=== PATIENT | male | born 1940 | race Caucasian/White ===

== ENCOUNTER 2021-01-06 14:41 | Outpatient (CLI) | payer MEDICARE, SELFPAY ==
--- NOTE | ~2021-01-06 | XR_ITS ---
EXAMINATION: XR shoulder RT min 2V, XR humerus RT DATE: 01/06/2021 15:07 INDICATION: Right shoulder/arm pain. TECHNIQUE: 1. AP internally and externally rotated, AP oblique externally rotated and transscapular Y views of t he right shoulder were obtained. 2. Internal and external rotated views of the right humerus were obtained. COMPARISON: None FINDINGS: Normal alignment. Old healed posterolateral right seventh rib fracture. No acute fracture.Mild glenoh umeral and acromioclavicular osteoarthritis. Right elbow joint space is normal. Indeterminate 3-3.5 c m mixed lytic and sclerotic lesion at the proximal metaphyseal region of the right humerus. No eviden t endosteal scalloping. Soft tissues are unremarkable. Visualized portion of the right lung is clear. IMPRESSION: Indeterminate 3-3.5 cm mixed lytic and sclerotic lesion at the proximal diaphyseal region of the righ t humerus which raises some concern for malignancy. Correlate with any prior outside imaging and woul d consider bone scan for further evaluation. Reviewed, dictated and finalized at location B. LITHOGRAPHER IMPRESSION: Indeterminate 3-3.5 cm mixed lytic and sclerotic lesion at the proximal diaphys eal region of the right humerus which raises some concern for malignancy. Corre late with any prior outside imaging and would consider bone scan for further ev aluation.
== END 2021-01-06 14:42 | disposition home or self-care (01) ==
PROVIDERS: PCP Family Medicine; Visit Provider Physician Assistant
DX: M79.601 Pain in right arm (principal); R93.6 Abnormal findings on diagnostic imaging of limbs
CPT/HCPCS: 73030; 73060

== ENCOUNTER 2021-01-12 10:26 | Outpatient (CLI) | payer MEDICARE, SELFPAY ==
--- NOTE | ~2021-01-12 | NM_ITS ---
EXAMINATION: NM bone scan whole body DATE: 01/12/2021 14:34 INDICATION: Disorder of bone, unspecified. TECHNIQUE: 23.6 mCi Tc-99m HDP was administered intravenously. Delayed whole-body scintigrams were o btained. COMPARISON: Right shoulder radiographs 01/06/21 FINDINGS: The bladder is markedly distended. There is bilateral hydronephrosis and hydroureter. There is joint-centered increased activity at the acromioclavicular joints, sternoclavicular joints, knees , and posterior spine, likely osteoarthritis. There is increased activity in proximal right humerus c orrelating with a sclerotic lesion on radiographs. IMPRESSION: 1. Increased activity in proximal right humerus correlating with a sclerotic lesion on radiographs. T he differential diagnosis includes metastatic disease and benign bone island. Noncontrast right shoul marge CT is recommended. 2. Markedly distended bladder with bilateral hydronephrosis and hydroureter. Reviewed, dictated and finalized at location A. ER PLATE LITHOGRAPHER IMPRESSION: 1. Increased activity in proximal right humerus correlating with a sclerotic le bridgette on radiographs. The differential diagnosis includes metastatic disease and benign bone island. Noncontrast right shoulder CT is recommended. 2. Markedly distended bladder with bilateral hydronephrosis and hydroureter.
== END 2021-01-12 10:27 | disposition home or self-care (01) ==
PROVIDERS: PCP Family Medicine; Visit Provider Physician Assistant
DX: M89.9 Disorder of bone, unspecified (principal)
CPT/HCPCS: 78306; A9561

== ENCOUNTER 2021-01-14 10:22 | Outpatient (CLI) | payer MEDICARE, SELFPAY ==
--- NOTE | ~2021-01-14 | CT_ITS ---
EXAMINATION: CT shoulder RT wo con DATE: 01/14/2021 10:47 INDICATION: Sclerotic lesion in proximal right humerus. TECHNIQUE: Computed tomography (CT) of the right shoulder was performed without intravenous contrast. Automated exposure control and iterative reconstruction technique were employed. The dose-length pro duct was 604.25 mGy-cm. COMPARISON: Right shoulder radiographs 01/06/2021, bone scan 01/12/2021 FINDINGS: Bone alignment is normal. No acute fracture. In proximal right humerus, there is a spiculat ed sclerotic lesion measuring 3.1 cm. No lytic component. No endosteal scalloping. There is mild oste oarthritis of glenohumeral joint and acromioclavicular joint. There is an old healed fracture of righ t seventh rib. IMPRESSION: 1. 3.1 cm sclerotic lesion in proximal right humerus, likely a benign bone island. 2. Mild polyarticular osteoarthritis. Reviewed, dictated and finalized at location A. UCER IMPRESSION: 1. 3.1 cm sclerotic lesion in proximal right humerus, likely a benign bone richi nd. 2. Mild polyarticular osteoarthritis.
== END 2021-01-14 10:23 | disposition home or self-care (01) ==
LOC: ANHIMG 10:24
PROVIDERS: PCP Family Medicine; Visit Provider Physician Assistant
DX: M19.011 Primary osteoarthritis, right shoulder (principal)
CPT/HCPCS: 73200

== ENCOUNTER 2021-04-05 09:00 | Outpatient (RCR) | payer MEDICARE, SELFPAY ==
[2021-03-03 09:00] VITALS: BP_SYST 80
--- NOTE | 2021-03-03 09:58 | PTOPEVAL ---
PHYSICAL THERAPY EVALUATION AND PLAN OF CARE 03-03-21 Thank you for referring Bird Staton to [facility] for the diagnosis of R shoulder impingement. He is scheduled to be seen for therapy? 1-2 x/week for 5 weeks. Please review, sign, date and return this plan of care MAXIMILIANO. I agree with and certify that the following plan of care is medically necessary. Referring Physician Date Attending Provider: Fantasma Briscoe MD PT Outpatient Evaluation Document 03/03/21 09:00 NOREEN (Rec: 03/03/21 09:58 NOREEN [id number]) Past Medical History Source of Past Medical History Patient Neurological History Hx Neurological Disorders No Significant History Cardiovascular History Hx Hypertension Yes: meds Respiratory History Hx Respiratory Disorders No Significant History Gastrointestinal History Hx Gastrointestinal Disorders No Significant History Genitourinary History Hx Genitourinary Disorders No Significant History Musculoskeletal History Hx Musculoskeletal Disorders No Significant History Endocrine History Hx Endocrine Disorders No Significant History Other History Hx Other Medical Conditions Yes: have had COVID vaccine Evaluation Information Problem Diagnosis R shoulder impingement Onset Dec 10, 2020 Subjective Information fell onto R shoulder in Dec; Query Text:As Reported By Patient/ injection to shoulder- not Family made much difference with pain , but able to move little better; reports shoulder is gradually improving, and using it more, but still limited with some motions; Diagnostic Tests X-Rays For This Problem Yes: decreased acromial- humeral space; Other Tests For This Problem Yes: CT-healed R 7th rib fracture;closed scapula fx Previous Treatments Previous Treatments For This Problem no PT treatment Prior Level of Function Activity Level (Last 3 Months) 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
[2021-04-05 09:04] VITALS: BP_SYST 80
--- NOTE | 2021-04-05 09:33 | PTOPEVAL ---
PHYSICAL THERAPY DISCHARGE 04-05-21 Refer to the clinical summary below, for his status with today's reeval, compared to the initial eval. The goals were partially achieved; he is independent with his home program and is to continue with increasing his activity level and using R UE. Thank you for referring Bird Staton to [facility] Please review, sign, date and return this Discharge MAXIMILIANO. I agree with and certify that the following plan of care is medically necessary. Referring Physician Date Attending Provider: Fantasma Briscoe MD Document 04/05/21 09:04 NOREEN (Rec: 04/05/21 09:33 NOREEN [id number]) Assessment Status Discharge Subjective Information Bird reports: shoulder is Query Text:As Reported By Patient/ better, can use it down low, Family but reaching up hurts; able to start truck without hurting and using R arm to eat; am now able to use R arm on the vertical ladder in the barn to go to top of hayloft; doing exercises at home; to see dr tomorrow; Pain Assessment Timing of Pain Assessment Timing of Pain Assessment Assessment Pain Scale Pain Scale Used Numeric (1 - 10) Self Report Pain Assessment Right Shoulder(s) Reported Pain Level 0 Pain Frequency Chronic,Intermittent Other Pain Description anterior shoulder joint; feels weak, aches and hurts when lift up Lowest Pain Intensity 0 Greatest Pain Intensity 8 Pain Aggravating Factors Exercise/Activity Other Pain Aggravating Factors reaching arm up Pain Behaviors Grimacing,Guarding Pain Score Pain Score 0: Self Report Interventions Used Interventions Used By Clinicians Education,Exercise Pain Relief Interventions Used By Ice,Inactivity/Rest Patient Other Alleviating Interventions sleeping OK; Upper Extremity Range of Motion Scapular/ Shoulder Range of Motion Right Shoulder Flexion - Active 80 Shoulder Flexion - Passive 115 Shoulder Abduction - Active 60 Shoulder Abduction - Passive 80 Shoulder Medial Rotation - Active palm to waist Query Text:Reach Behind the Back Shoulder Lateral Rotation - Passive 65 Shoulder Lateral Rotation - Active palm to behind ear Query Text:Reach Behind the Head Scapular/Shoulder Range of Motion active ROM in standing/ Comments passive in supine with stretching; ER with elbow at side; -------- HEP: reviewed kelly MIJARES
== END 2021-04-05 11:45 | disposition home or self-care (01) ==
LOC: ANHPT 09:00
PROVIDERS: PCP Family Medicine; Visit Provider Orthopaedic Surgery
DX: M75.41 Impingement syndrome of right shoulder (principal)
CPT/HCPCS: 97110; 97140; 97161

== ENCOUNTER 2023-03-18 14:05 | Emergency (ER) | payer MEDICARE, SELFPAY ==
--- NOTE | ~2023-03-18 | XR_ITS ---
EXAM: XR thoracic spine 3V DATE: 03/18/2023 14:27 HISTORY: pain to right of thoracic, UPPER after fall 3 days ago . COMPARISON: None available. FINDINGS: Streaky bibasilar opacities likely represent atelectasis/scar. Basilar calcifications. Oste openia. Vertebral body alignment intact. Exaggerated thoracic kyphosis. Mild multilevel anterior wedg e deformity of mid and lower thoracic vertebral bodies. Moderate disc space narrowing and marginal os teophytosis. No traumatic malalignment. Visualized lung parenchyma is clear. IMPRESSION: Multilevel mild anterior wedge deformity of multiple vertebral bodies in the thoracic spi ne, of uncertain age. Reviewed, dictated and finalized at location K. IMPRESSION: Multilevel mild anterior wedge deformity of multiple vertebral bodi es in the thoracic spine, of uncertain age.
--- NOTE | 2023-03-18 14:06 | ED.FALL ---
HPI - Fall General Chief Complaint: Extremity Injury, Upper Stated Complaint: fell and inj rt shoulder Time Seen by Provider: 03/18/23 14:06 Source: patient Mode of arrival: ambulatory Limitations: no limitations History of Present Illness HPI Narrative: Mr. Staton is an 82-year-old male patient presenting to the clinic today with complaints of a right-sided midback pain and scapular pain after a fall on Sunday. 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 Has a large old bruise to the left elbow but denies any elbow pain, denies any pain in the shoulder or over the right humerus. Denies hitting his head or any loss of consciousness. He denies any neck pain. Related Data Home Medications Medication Instructions Recorded Confirmed finasteride 5 mg tablet 5 mg PO DAILY 09/27/21 03/18/23 Allergies Allergy/AdvReac Type Severity Reaction Status Date / Time No Known Allergies Allergy Mild Verified 03/18/23 14:08 Review of Systems Review of Systems: Pertinent positives per HPI. Patient denies any fever, chills, rash, headache, visual changes, dizziness, cough, runny nose, sore throat, shortness of breath, chest pain, palpitations, nausea, vomiting, diarrhea, constipation, abdominal pain, or any urinary issues. 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 There is no relevant family history pertinent to the patient complaint. Exam Narrative: General: Well-developed, well nourished, in no apparent distress Head: Normocephalic, atraumatic. Cardio: Regular rate and rhythm, s1 and s2 normal, no murmur appreciated. Resp: Clear to auscultation bilaterally, no rhonchi, rales, wheezing or rubs. Musculoskeletal: No deformity, tender to palpation over the right midthoracic spine and right scapula, pain with twisting of the spine to the left and the right, nontender to palpation over the right clavicle, shoulder, elbow, wrist, or hand, grossly normal range of motion, muscle strength strong and equal, peripheral pulse strong, no edema, no cyanosis, normal gait and station Course Course Emergency Course: Portions of this record may have been created with voice recognition software. Level of Care: Express Care Visit Vital Signs Vital signs: Vital signs reviewed MDM - Fall MDM Narrative Medical decision making narrative: At the time of visit patient is resting comfortably on the exam table. X-ray of the thoracic spine/ scapula was obtained and was negative for any acute fractures however does show sign of an anterior wedge deformity that is mild of undetermined age. Supportive measures were discussed with the patient he voiced understanding discharge instructions agrees to treatment plan. Differential Diagnosis Differential diagnosis: Likely compression fracture and other (Fracture thoracic spine, fracture of the scapula) Imaging Data Radiologist's impression: [facility] [address] [place] [address] XRay Report Signed Patient: Bird Staton : 1940 MR#: [id number] Age/Sex: 82 / M Acct:[id number] Loc: [facility]? ? ADM Date: 03/18/23Attending Dr: Ordering Physician: Kristopher Craig APRN Date of Service: 03/18/23 Procedure(s): XR thoracic spine 3V Accession Number(s): [id number]
[2023-03-18 14:14] VITALS: BP 126/69; PULSE 50; RESP 16; TEMP 37; O2SAT 99
== END 2023-03-18 15:10 | disposition home or self-care (01) ==
PROVIDERS: Emergency Provider Nurse Practitioner Family; PCP Emergency Medicine
DX: M43.9 Deforming dorsopathy, unspecified (principal); M54.6 Pain in thoracic spine; I10 Essential (primary) hypertension
CPT/HCPCS: 72072; 99213; G0463

== ENCOUNTER 2024-06-05 14:33 | Outpatient (CLI) | payer MEDICARE, SELFPAY ==
[2024-06-05 19:39] LABS: Basophils Percent Auto 0.3 % (0.2-1.2); Eosinophils Absolute Auto 0.3 K/mm3 (0-0.3); Hemoglobin 10.9 g/dL (14.0-18.0); Immature Granulocyte Percent A 0.7 % (0-0.5); Lymphocytes Absolute Auto 1.05 K/mm3 (0.9-3.2); Lymphocytes Percent Auto 7.2 % (18.3-44.2); Mean Corpuscular HGB Conc 32.1 g/dl (32-36); Mean Corpuscular Hemoglobin 30.8 pg (26-34); Mean Platelet Volume 11.1 fl (7.4-10.4); Monocytes Absolute Auto 0.9 K/mm3 (0.1-0.6); Monocytes Percent Auto 5.9 % (2.6-8.5); Neutrophils Absolute Auto 12.3 K/mm3 (1.3-6.7); Neutrophils Percent Auto 83.9 % (45.5-73.1); Platelet Count Result 353 k/mm3 (150-375); Red Blood Count 3.54 M/mm3 (4.6-6.20); Red Cell Distribution Width 13.7 % (11.5-14.5); White Blood Count 14.7 K/mm3 (4.5-10.0)
[2024-06-05 19:46] LABS: Alanine Aminotransferase 18 U/L (6-50); Albumin Level 3.7 g/dL (3.5-5.1); Alkaline Phosphatase 107 U/L (38-126); Anion Gap 10 mmol/L (4-12); Aspartate Amino Transferase 23 U/L (17-59); Bilirubin,Total 0.4 mg/dL (0.2-1.3); Blood Urea Nitrogen 83 mg/dL (9-20); Calcium 9.2 mg/dL (8.4-10.2); Carbon Dioxide 23 mmol/L (22-30); Chloride 105 mmol/L (98-107); Estimated Glomerular Filt Rate 12; Glucose 105 mg/dL (65-110); Potassium 5.1 mmol/L (3.4-5.0); Sodium 138 mmol/L (137-145)
[2024-06-05 19:48] LABS: Add Urine Microscopic? YES; Appearance Urine Turbid (Clear); Bacteria Urine None Seen /hpf; Bilirubin Urine Negative (Negative); Blood Urine 2+ (Negative); Budding Yeast Urine Present /hpf; Color Urine Yellow (Yellow); Glucose Urine UA Negative (Negative); Ketones Urine Negative (Negative); Leukocyte Esterase Ur 3+ LEU/UL (Negative); Need Manual Microscopic Reviewed; Nitrate Urine Negative (Negative); Non Pathogenic Casts 0-2; Protein Urine 2+ mg/dL (Negative); RBC Urine 0-2 /hpf (0-2); Specific Grav Ur 1.013 (1.001-1.035); Squamous Epithelial Cell Urine Many /hpf (Few); Urobilinogen Urine 0.2 mg/dL (<2.0); WBC Urine >100 /hpf (0-3); pH Urine 5.5 (5.0-9.0)
[2024-06-05 19:59] LABS: Prostate Specific Antigen 11.6 ng/mL (< OR = 4.0)
[2024-06-05 20:07] LABS: Vitamin D 25 Hydroxy 40.9 ng/mL
== END 2024-06-05 14:34 | disposition home or self-care (01) ==
LOC: ANHGOSHLAB 14:34
PROVIDERS: PCP Emergency Medicine; Visit Provider Emergency Medicine
DX: N18.9 Chronic kidney disease, unspecified (principal); D63.1 Anemia in chronic kidney disease; N40.0 Benign prostatic hyperplasia without lower urinary tract symptoms; R30.0 Dysuria; R35.0 Frequency of micturition; Z12.5 Encounter for screening for malignant neoplasm of prostate
CPT/HCPCS: 36415; 80053; 81001; 82306; 83970; 84153; 85025; 87086; 87088; G0103

== ENCOUNTER 2024-06-10 14:35 | Inpatient (IN) | payer MEDICARE, SELFPAY ==
[2024-06-10] VITALS (7 sets, daily range): BP systolic 124–155; BP diastolic 54–70; PULSE 53–77; RESP 12–23; TEMP 36.4–37.1; O2SAT 98–100; BMI 22.0
--- NOTE | ~2024-06-10 | US_ITS ---
EXAMINATION: US renal BI DATE: 06/12/2024 09:01 INDICATION: Bilateral hydronephrosis. TECHNIQUE: Multiple ultrasound grayscale images of the kidneys were obtained. COMPARISON: CT abdomen and pelvis 06/12/2024 FINDINGS: The right kidney measures 11.9 x 5.4 x 4.4 cm. The left kidney measures 11.8 x 5.6 x 4.7 cm. The kidn eys demonstrate increased parenchymal echogenicity, consistent with nephropathy. There is severe bila teral hydronephrosis. The bladder is decompressed by a Patrick catheter. There are stones in the bladde r better seen by CT. There is a 2.2 cm cyst in the liver. IMPRESSION: 1. Severe bilateral hydronephrosis. 2. Bladder stones. Reviewed, dictated and finalized at location A.
--- NOTE | ~2024-06-10 | US_ITS ---
EXAMINATION: US renal BI DATE: 06/10/2024 19:53 INDICATION: Renal failure TECHNIQUE: Multiple grayscale and Doppler ultrasound images of the kidneys were obtained. COMPARISON: None. FINDINGS: The right kidney measures 12.3 x 7.2 x 5.2 cm. The left kidney measures 13.4 x 8.6 x 6.9 cm. The kidn eys demonstrate normal parenchymal echogenicity. There is severe bilateral hydronephrosis. The bladde r is fully distended despite the presence of a Patrick catheter. Bladder wall thickening and trabeculat ion. IMPRESSION: Severe bilateral hydronephrosis. Fully distended urinary bladder despite the presence of a Patrick cath eter which is apparently not clamped. Correlate for catheter function. Bladder wall thickening may be secondary to cystitis or chronic outlet obstruction. Reviewed, dictated and finalized at location K. IMPRESSION: Severe bilateral hydronephrosis. Fully distended urinary bladder despite the pr esence of a Patrick catheter which is apparently not clamped. Correlate for iggy ter function. Bladder wall thickening may be secondary to cystitis or chronic o utlet obstruction.
--- NOTE | ~2024-06-10 | CT_ITS ---
EXAMINATION: CT abdomen pelvis wo con DATE: 06/12/2024 08:53 INDICATION: Hydronephrosis. TECHNIQUE: Computed tomography (CT) of the abdomen and pelvis was performed without intravenous contr ast. Automated exposure control and iterative reconstruction technique were employed. The dose-length product was 261.31 mGy-cm. COMPARISON: Ultrasound kidneys 06/12/2024 FINDINGS: The visualized portions of the lung bases demonstrate minimal atelectasis. Calcified pulmon lindsey nodules are consistent with old granulomatous disease. There is a trace right pleural effusion. T here is left atrial and left ventricular enlargement of the heart. There are coronary artery calcific ations. No pericardial effusion. There are cysts in the liver measuring up to 6.3 cm. The gallbladder , spleen, pancreas, and left adrenal gland are normal. There is a 2.6 cm mass in right adrenal gland measuring low attenuation, consistent with an adenoma. There is cortical thinning of the kidneys. The re is severe right hydronephrosis and hydroureter. There is a 13 mm stone in left kidney. There is se kg left hydronephrosis and hydroureter. The prostate is severely enlarged. The bladder is decompres sed by a Patrick catheter. There are approximately 4 stones in the bladder measuring up to 17 mm. There is diffuse bladder wall thickening. There is an umbilical hernia containing fat and trace ascites. T here is diverticulosis of the colon without evidence of diverticulitis. There are no dilated loops of bowel. The appendix is normal. There is calcified atherosclerosis of the aorta and many of the other arteries. There are no pathologically enlarged lymph nodes. There is no free intraperitoneal fluid. There is severe lumbar and lower thoracic spondylosis. There is mild chronic anterior wedging of mult iple lower thoracic vertebral bodies. IMPRESSION: 1. Severe bilateral hydronephrosis and hydroureter. Cortical thinning of the kidneys. 2. Severely enlarged prostate. 3. Diffuse bladder wall thickening, likely secondary to chronic outlet obstruction. 4. Bladder stones. Nonobstructing left kidney stone. Reviewed, dictated and finalized at location A. IMPRESSION: 1. Severe bilateral hydronephrosis and hydroureter. Cortical thinning of the ki dneys. 2. Severely enlarged prostate. 3. Diffuse bladder wall thickening, likely secondary to chronic outlet obstruct ion. 4. Bladder stones. Nonobstructing left kidney stone.
[2024-06-10 16:05] LABS: Basophils Absolute Auto 0.1 K/mm3 (0.0-0.1); Basophils Percent Auto 0.5 % (0.2-1.2); Eosinophils Absolute Auto 0.2 K/mm3 (0-0.3); Eosinophils Percent Auto 2.1 % (0-4.4); Hematocrit 29.4 % (42.0-52.0); Hemoglobin 9.8 g/dL (14.0-18.0); Immature Granulocyte Absolute 0.05 K/mm3 (0.00-0.031); Immature Granulocyte Percent A 0.5 % (0-0.5); Lymphocytes Absolute Auto 0.58 K/mm3 (0.9-3.2); Lymphocytes Percent Auto 5.6 % (18.3-44.2); Mean Corpuscular HGB Conc 33.3 g/dl (32-36); Mean Corpuscular Hemoglobin 31.3 pg (26-34); Mean Corpuscular Volume 93.9 fl (80-100); Mean Platelet Volume 10.7 fl (7.4-10.4); Monocytes Absolute Auto 0.6 K/mm3 (0.1-0.6); Monocytes Percent Auto 5.3 % (2.6-8.5); Neutrophils Absolute Auto 8.9 K/mm3 (1.3-6.7); Platelet Count Result 303 k/mm3 (150-375); Red Blood Count 3.13 M/mm3 (4.6-6.20); White Blood Count 10.4 K/mm3 (4.5-10.0)
[2024-06-10] MEDS: SODIUM CHLORIDE 0.9% IV 1,000 ML 999 ML IV CONT (16:07)
[2024-06-10 16:13] LABS: Lactic Acid Reflex 1.4 mmol/L (0.7-2.0)
[2024-06-10 16:16] LABS: Alanine Aminotransferase 21 U/L (6-50); Albumin Level 3.4 g/dL (3.5-5.1); Alkaline Phosphatase 114 U/L (38-126); Anion Gap 12 mmol/L (4-12); Aspartate Amino Transferase 23 U/L (17-59); Bilirubin,Total 0.2 mg/dL (0.2-1.3); Blood Urea Nitrogen 88 mg/dL (9-20); Calcium 9.1 mg/dL (8.4-10.2); Carbon Dioxide 18 mmol/L (22-30); Chloride 107 mmol/L (98-107); Estimated CRCL calculation 10 ml/min; Estimated Glomerular Filt Rate 12; Glucose 96 mg/dL (65-110); Potassium 4.8 mmol/L (3.4-5.0); Sodium 137 mmol/L (137-145)
[2024-06-10 16:25] LABS: Add Urine Microscopic? YES; Appearance Urine Turbid (Clear); Bacteria Urine None Seen /hpf; Bilirubin Urine Negative (Negative); Blood Urine 3+ (Negative); Color Urine Yellow (Yellow); Glucose Urine UA Negative (Negative); Ketones Urine Negative (Negative); Leukocyte Esterase Ur 3+ LEU/UL (Negative); Nitrate Urine Negative (Negative); Non Pathogenic Casts 0-2; Protein Urine 2+ mg/dL (Negative); RBC Urine 21-50 /hpf (0-2); Specific Grav Ur 1.013 (1.001-1.035); Squamous Epithelial Cell Urine Few /hpf (Few); Urobilinogen Urine 0.2 mg/dL (<2.0); WBC Urine >100 /hpf (0-3); pH Urine 5.5 (5.0-9.0)
--- NOTE | 2024-06-10 17:29 | ED.MALEGU ---
HPI - Male Genitourinary General Chief complaint: Urogenital-Male Stated complaint: UTI Time Seen by Provider: 06/10/24 15:16 History of Present Illness HPI Narrative: This is a 84-year-old male, presented emergency department complaining of dysuria and at the recommendation of his primary care doctor concern for kidney failure. The patient states he was diagnosed with a urinary tract infection in late May and started on Macrobid. Despite this he had continued symptoms. He complains of urinary frequency, dysuria and increased urination at night. He has no other complaints at this time. Related Data Home Medications Medication Instructions Recorded Confirmed finasteride 5 mg tablet 5 mg PO DAILY 09/27/21 06/10/24 Allergies Allergy/AdvReac Type Severity Reaction Status Date / Time No Known Allergies Allergy Mild Verified 06/10/24 15:10 Review of Systems Review of Systems: All systems reviewed & are unremarkable except as noted in HPI and below PMFSH Past Medical History Medical History BPH loc w urin obs/LUTS Elevated PSA Surgical History Surgical History No significant past surgical history Family History Family History Father Hypertension Family history of elevated blood lipids Family history of cardiovascular disease Social History Social History Smoking status: Never smoker Second hand tobacco smoke exposure: No Alcohol intake: never Substance use: never Substance use type: does not use Do You Feel Safe in your Home?: Yes Lack of Transportation: No Lack of Food: Never True Current Housing: I Have Housing Concerned About Future Housing: No Difficulty Paying Gas/Electric Bills: No Difficulty Paying for Meds: No Currently Unemployed: No Education: Associate Degree Difficulty w/ Childcare or Family Care: No Living arrangements: with family 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 HEAD: Normocephalic, atraumatic. EYES: PERRLA and EOMI. CHEST: Clear to auscultation. No respiratory distress. No wheezes rales or rhonchi HEART: Regular rate and rhythm. No murmur heard. Normal peripheral pulses. ABDOMEN: Soft, mild suprapubic tenderness to palpation with a small periumbilical hernia, there is a palpable soft mass noted, nondistended, normal active bowel sounds. No CVA tenderness to palpation EXTREMITIES: Normal range of motion. No edema. SKIN: Warm, dry, no rash. NEURO: Alert and oriented x3. No focal deficit. Moving all 4 limbs spontaneously PSYCH: Normal mood and affect. Course Course Emergency Course: 17:30 - Bladder scan by nursing staff short approximate 800 cc of urine in the bladder. A Patrick catheter was placed with similar output. CBC demonstrates slightly elevated white blood cell count of 10.4. Hemoglobin 9.8 (with a baseline of 10-11). Platelets within normal limits. Creatinine elevated at 4.7, this has remained persistent since 06/05/2024. Bicarb 18 with an anion gap of 12. UA demonstrates changes concerning for urinary tract infection. Will start antibiotics. I suspect LOU secondary to urinary retention. I discussed the patient with telescope operator, Dr. Box who agrees to consult and hospitalist, PAUL Tracy who accepts admission. Vital Signs Vital signs: Vital Signs Temperature 97.5 F L 06/10/24 14:36 Pulse Rate 72 06/10/24 14:36 Respiratory Rate 16 06/10/24 14:36 Blood Pressure 140/67 06/10/24 14:36 Pulse Oximetry 100 06/10/24 14:36 Oxygen Delivery Room Air 06/10/24 14:36 Temperature 98.7 F
--- NOTE | 2024-06-10 18:35 | PC.NURSE ---
This patient, Bird Staton, was admitted to [facility] Surg Room 323-02. Patient/family oriented to hospital policies and general routines including ID bracelet, bed and alarms, visiting hours, pain management, procedures, bathroom and other care routines, personal items, smoking policy, room service/diet, and visiting hours. Information on how to activate the Rapid Response Team has been discussed. Patient/Family are encouraged to report perceived risks to care and to ask questions if they do not understand what they are told or what they should do.
--- NOTE | 2024-06-10 18:40 | PM.IMHP ---
H&P: HPI History of Present Illness Date/Time: 06/10/24 18:40 Chief Complaint: Dysuria Narrative: This is a 84-year-old male, presented emergency department complaining of dysuria and at the recommendation of his primary care doctor concern for kidney failure. The patient states he was diagnosed with a urinary tract infection in late May and started on Macrobid. Despite this he had continued symptoms. He complains of urinary frequency, dysuria and increased urination at night. He has no other complaints at this time. On arrival to the ED his vitals were stable. Laboratory evaluation showed WBC of 10.4 hemoglobin of 9.8 creatinine is 4.7 with bicarbonate of 18. Lactic acid was normal at 1.4 LFTs were normal. Urinalysis was positive for U TI with WBC more than 100 and RBC 21-50. Positive leukocyte esterase negative nitrate. His baseline creatinine back in 2022 was 1.8. Creatinine recently on 06/05/2024 was 4.7 as well. PSA noted to be elevated at 11.6. Urine culture recently with mixed genital rolly. Repeat urine cultures been sent. Patient has been started on ceftriaxone. Follow urine culture. Bladder scan was done in the ER which revealed urinary retention and Patrick catheter has been placed since then passage of some blood and clots which has now resolved. He has felt much better since then. He is admitted in the setting for further treatment. Review of Systems Review of Systems: - CONSTITUTIONAL: Denies weight loss, fever and chills. - HEENT: Denies changes in vision and hearing - RESPIRATORY: Denies SOB and cough. - CV: Denies palpitations and CP. - GI: Denies abdominal pain, nausea, vomiting and diarrhea. - : Reports dysuria and urinary frequency. - MSK: Denies myalgia and joint pain. - SKIN: Denies rash and pruritus. - NEUROLOGICAL: Denies headache and syncope. - PSYCHIATRIC: Denies recent changes in mood. Denies anxiety and depression. 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 Gender identity (if verbalized by the patient): Male Meds Home Medications and Allergies Home Medications Medication Instructions Recorded Confirmed Type finasteride 5 mg tablet 5 mg PO DAILY 09/27/21 06/05/24 History ferric citrate 210 mg iron tablet 210 mg PO DAILY anemia associated 08/29/22 06/05/24 Rx with chronic kidney disease #90 tabs tamsulosin 0.4 mg capsule 0.4 mg PO QHS #90 caps 06/05/24 06/05/24 Rx Allergies Allergy/AdvReac Type Severity Reaction Status Date / Time No Known Allergies Allergy Mild Verified 06/10/24 15:10 Vital Signs Vital Signs - 24 hr 06/10/24 14:36 06/10/24 15:09 06/10/24 16:09 Temperature 97.5 F L Pulse Rate 72 67 58 L Respiratory Rate 16 23 H 21 H Blood Pressure 140/67 124/70 140/65 Pulse Oximetry 100 98 99 Oxygen Delivery Room Air 06/10/24 18:19 Temperature Pulse Rate 77 Respiratory Rate 12 Blood Pressure 128/69 Pulse Oximetry 100 Oxygen Delivery Exam Narrative: GENERAL: Well-developed, well-nourished, and in no acute distress. HEAD: Normocephalic, atraumatic. EYES: PERRLA and EOMI. CHEST: Clear to auscultation. No respiratory distress. No wheezes rales or rhonchi HEART: Regular rate and rhythm. No murmur heard. Normal peripheral pulses. ABDOMEN: Soft, non tender nondiste
[2024-06-10 20:03] LABS: Creatine Kinase 61 U/L (55-170)
--- NOTE | 2024-06-10 20:27 | ADMGEN ---
This patient, Bird Staton, was admitted to [facility] Surg Room 323-02. Patient/family oriented to hospital policies and general routines including ID bracelet, bed and alarms, visiting hours, pain management, procedures, bathroom and other care routines, personal items, smoking policy, room service/diet, and visiting hours. Information on how to activate the Rapid Response Team has been discussed. Patient/Family are encouraged to report perceived risks to care and to ask questions if they do not understand what they are told or what they should do.
[2024-06-10 21:50] LABS: Eosinophil Urine None Seen % (None Seen); Urine Eos QC 2nd Tech Confirmed
[2024-06-10 21:56] LABS: Creatinine Urine 49.6 mg/dL
[2024-06-10 22:06] LABS: Sodium Urine Random 68 meq/L
[2024-06-11] MEDS: TAMSULOSIN HCL 0.4 MG CAPSULE PO ×2 (00:11→20:19)
[2024-06-11 06:00] VITALS: BP 143/69; PULSE 79; RESP 18; TEMP 37; O2SAT 100
[2024-06-11 06:34] LABS: Basophils Percent Auto 0.4 % (0.2-1.2); Eosinophils Absolute Auto 0.4 K/mm3 (0-0.3); Eosinophils Percent Auto 4.2 % (0-4.4); Hematocrit 30.7 % (42.0-52.0); Hemoglobin 10.2 g/dL (14.0-18.0); Immature Granulocyte Absolute 0.04 K/mm3 (0.00-0.031); Immature Granulocyte Percent A 0.4 % (0-0.5); Lymphocytes Absolute Auto 1.04 K/mm3 (0.9-3.2); Lymphocytes Percent Auto 10.4 % (18.3-44.2); Mean Corpuscular HGB Conc 33.2 g/dl (32-36); Mean Corpuscular Hemoglobin 31.2 pg (26-34); Mean Corpuscular Volume 93.9 fl (80-100); Mean Platelet Volume 10.4 fl (7.4-10.4); Monocytes Absolute Auto 0.5 K/mm3 (0.1-0.6); Monocytes Percent Auto 5.1 % (2.6-8.5); Neutrophils Percent Auto 79.5 % (45.5-73.1); Platelet Count Result 281 k/mm3 (150-375); Red Blood Count 3.27 M/mm3 (4.6-6.20)
[2024-06-11 07:03] LABS: Anion Gap 9 mmol/L (4-12); Blood Urea Nitrogen 71 mg/dL (9-20); Calcium 9.1 mg/dL (8.4-10.2); Carbon Dioxide 20 mmol/L (22-30); Chloride 110 mmol/L (98-107); Estimated CRCL calculation 13 ml/min; Estimated Glomerular Filt Rate 16; Glucose 92 mg/dL (65-110); Potassium 4.9 mmol/L (3.4-5.0); Sodium 139 mmol/L (137-145)
--- NOTE | 2024-06-11 08:10 | PM.IMPN ---
Progress Note: A&P Assessment and Plan (1) Urinary tract infection: Code(s): N39.0 - Urinary tract infection, site not specified Status: Acute Assessment and Plan: - UA: turbid appearance, 2+ protein, 3+ blood, 3+ leukocyte, 21-50 RBC, > 100 WBC - UC obtained on 06/10: pending - No previous micro to be reviewed - started on Rocephin 06/10 (2) Clot hematuria: Code(s): R31.0 - Gross hematuria Status: Acute Assessment and Plan: Bladder scan was done in the ER which revealed urinary retention and Higgins catheter has been placed. Patient then started passing clots. - CBI started on 06/10, higgins bag without clots or hematuria - Urology consulted (3) Urinary retention: Code(s): R33.9 - Retention of urine, unspecified Status: Acute Assessment and Plan: Bladder scan was done in the ER which revealed urinary retention. - Renal US: Severe bilateral hydronephrosis. Fully distended urinary bladder despite the presence of a Higgins catheter which is apparently not clamped. Correlate for catheter function. Bladder wall thickening may be secondary to cystitis or chronic outlet obstruction. - Higgins catheter placed (4) LOU (acute kidney injury): Code(s): N17.9 - Acute kidney failure, unspecified Status: Acute Assessment and Plan: BUN/Cr 88/4.7 on admission. Was 1.8 in 2022. Likely etiology is patients urinary retention. - BUN/Cr 71/3.7 on am labs - Renal US: Severe bilateral hydronephrosis. Fully distended urinary bladder despite the presence of a Higgins catheter which is apparently not clamped. Correlate for catheter function. Bladder wall thickening may be secondary to cystitis or chronic outlet obstruction. - IV fluids - Avoid nephrotoxic medications - Renally dose medications - Monitor vital signs and I/O - Monitor renal function with daily labs - Nephrology consulted (5) Essential (primary) hypertension: Code(s): I10 - Essential (primary) hypertension Status: Acute Assessment and Plan: Chronic, stable on home medications. - Tamsulosin 0.4 mg daily - Monitor Time Spent With Patient Time with patient: 25 - 35 minutes Subjective Date/time seen: 06/11/24 08:10 Interval history: 84 year old male with past medical history of hypertension and chronic kidney disease presents to the hospital for dysuria. Patient is pleasant lying comfortably in bed. He remains on CBI at this time. The higgins bag is without hematuria or clots. Urology evaluated him today, waiting on recommendations. He states he is feeling much better today and has no complaints. He remains on IV fluids for his LOU which is improving on am labs. His renal us showed severe bilateral hydronephrosis. Nephrology consulted. Patient denies chest pain, shortness of breath, nausea/vomiting and changes in bowel. Review of Systems Review of Systems: All systems reviewed & are unremarkable except as noted in HPI and below Exam Narrative: AF HR 59 RR 16 SpO2 98 BP 138/70 General: male in no acute respiratory distress who is nontoxic appearing, lying semi recumbent in bed. HEENT: Normocephalic. Atraumatic. Pupils equal round reactive to light. Extraocular movement intact. Sclera clear and anicteric. No facial asymmetry. Chest: Lungs are clear to auscultation bilaterally. No wheezes or crackles. CV: Heart was regular rate and rhythm. S1/S2. No murmurs, gallops, or rubs. Abd: Abdomen was soft. Nontender. Nondistended. Positive bowel sounds. No organomegaly or masses. : higgins catheter in place on CBI. No hematuria or clots present, clear straw colored urine. Ext: No clubbing, cyanosis, or edema. 2+ DP pulses bilaterally. Neuro: Patient is alert and oriented x4. Cranial nerves 2-12 are intact. Speech is clear. Psych: Normal mood and affect. Patient is pleasant and cooperative. Skin: Warm and dry. No rashes noted. Objective Data Vital Signs Vital Signs: Vital Signs - 24 hr 08/06
[2024-06-11] MEDS: FINASTERIDE 5 MG TABLET PO (08:23)
[2024-06-11] MEDS: SODIUM CHLORIDE 0.9% IV 1,000 ML 100 ML IV CONT (09:12)
[2024-06-11 11:14] VITALS: O2SAT 95
--- NOTE | 2024-06-11 12:54 | WPDURCON ---
Assessment and Plan Assessment and plan (1) Urinary retention: Code(s): R33.9 - Retention of urine, unspecified Status: Acute Assessment and Plan: 1 L urinary retention on presentation now s/p Patrick catheter placement. Will obtain repeat renal ultrasound tomorrow to ensure bladder is emptying and hydro is improving. NPO at midnight in case of need for OR tomorrow (2) Hematuria: Code(s): R31.9 - Hematuria, unspecified Status: Resolved Assessment and Plan: Onset following catheter placement, likely related to rapid decompression. Had some issues clots but promptly resolved after starting CBI. CBI is off now and urine remains completely clear (3) Urinary tract infection: Code(s): N39.0 - Urinary tract infection, site not specified Status: Acute Assessment and Plan: Recently treated for outpatient UTI. UA abnormal on presentation urine culture is pending. Continue empiric antibiotics while awaiting culture results (4) BPH loc w urin obs/LUTS: Code(s): N40.1 - Benign prostatic hyperplasia with lower urinary tract symptoms Status: Acute Assessment and Plan: Continue tamsulosin and finasteride (5) LOU (acute kidney injury): Code(s): N17.9 - Acute kidney failure, unspecified Status: Acute Assessment and Plan: Secondary to acute retention. Creatinine trending down, continue to monitor closely. Monitor electrolytes Urology Consult Note HPI Date Seen: 06/11/24 Requesting Physician: Ameena Woodard PA-C Primary Care Provider: Heriberto Delvalle MD Consult Narrative Narrative: Bird Staton is a 84 year old male with a history of BPH was being seen in consultation for urinary retention. He had been seen by his PCP on 06/05/24 after recently being treated for UTI in urgent care. He had labs completed that showed his creatinine was significantly elevated from baseline and his potassium was slightly elevated. He was instructed to go to the emergency room for further evaluation. He presented on 06/10/2024. On arrival, his vital signs were stable and was afebrile, white blood cell count 10.4, creatinine 4 7, potassium 4.8, UA abnormal with positive leukocytes and white blood cells. Bladder scan demonstrated about 800 cc of urine in the bladder. Patrick catheter placed with nearly 1 L of urine output. Renal ultrasound was completed later the did show severe bilateral hydronephrosis with fully distended bladder despite Patrick catheter present. He had developed hematuria after Patrick catheter placement and was passing some clots that walked off the catheter. He was then started on CBI. His urine promptly cleared and Patrick was draining without difficulty. At the time of my evaluation, the patient is comfortable and has no concerns. He denies suprapubic pain or pressure. No issues with Patrick catheter which is draining clear yellow urine with CBI off. His creatinine has improved slightly to 3.7 today. He has no additional concerns. Review of Systems Review of Systems: All systems reviewed & are unremarkable except as noted in HPI and below PMFSH Past Medical History Medical History (Updated 06/11/24 @ 15:29 by Suzie Franks PA-C) BPH loc w urin obs/LUTS Elevated PSA Surgical History Surgical History No significant past surgical history Family History Family History Father Hypertension Family history of elevated blood lipids Family history of cardiovascular disease Social History Social History Smoking status: Never smoker Second hand tobacco smoke exposure: No Alcohol intake: never Substance use: never Substance use type: does not use Do You Feel Safe in your Home?: Yes Lack of Transportation: No Lack of Food: Never True Cur
--- NOTE | 2024-06-11 13:55 | PM.CNNEP ---
Assessment and Plan Assessment and plan (1) LOU (acute kidney injury): Code(s): N17.9 - Acute kidney failure, unspecified Status: Acute Assessment and Plan: improvement noted felt to be secondary to urinary retention/obstructive uropathy along with UTI renal ultrasound with bilateral hydronephrosis s/p higgins catheter placement (with immediate output of 1L of urine in the ER) follow repeat labs and UOP (2) Stage 3b chronic kidney disease: Code(s): N18.32 - Chronic kidney disease, stage 3b Status: Chronic Assessment and Plan: baseline creatinine runs ~ 1.7 - 2.0mg/dl from review of records presumably secondary to HTN, BPH, and age-related change (3) Urinary retention: Code(s): R33.9 - Retention of urine, unspecified Status: Acute Assessment and Plan: as noted since admission imaging studies noted resumed on tamsulosin and finasteride Urology following (4) Urinary tract infection: Code(s): N39.0 - Urinary tract infection, site not specified Status: Acute Assessment and Plan: as suggested by admission UA follow culture results on antibiotics (5) Essential (primary) hypertension: Code(s): I10 - Essential (primary) hypertension Status: Chronic Assessment and Plan: despite history, not on any anti-HTN medications follow trend of hemodynamics I will continue to follow the patient with you while he remains hospitalized and make further recommendations as deemed necessary. Thank you for allowing me to participate in the care of this patient. History of Present Illness Reason for Consult Consult date: 06/11/24 Reason for consult: acute renal failure (on chronic kidney disease) Chief Complaint Chief complaint: Urinary retention, LOU History of Present Illness Narrative: The patient is an 84-year-old male with a past medical history as outlined below who presented to [facility] Emergency room due to abnormal labs. The patient was recently diagnosed with a urinary tract infection and was started on oral antibiotics. However, despite this therapy he continues to have symptoms of urinary frequency, dysuria, and increased urination at night. He had repeat outpatient labs done which demonstrated a marked decline in his renal function/creatinine and he was advised by his primary care physician to report to the ER for further assessment. Workup and evaluation in the emergency room demonstrated a mildly elevated white blood cell count, relative anemia, and a creatinine of 4.7 mg/dL consistent with acute kidney injury/acute renal failure on top of his baseline chronic kidney disease. This value is the same as what his outpatient labs were several days ago. His urinalysis was highly suggestive of a urinary tract infection and his lactic acid and liver function tests were well within normal limits. After appropriate cultures were obtained, he was started on IV antibiotic therapy for his presumed urinary tract infection. A bladder scan done in the ER demonstrated significant urinary retention so a Higgins catheter was placed with significant urine output along with the passage of some clots. He was subsequently admitted to the hospital for further evaluation and therapy and Urology consultation. Since his admission, the patient states he feels somewhat better with regard to his urinary symptoms and he has had some mild improvement in his renal function/creatinine as well. He has already been seen by Urology earlier today. Renal consultation was requested due to his acute kidney injury/acute renal failure on top of his baseline chronic kidney disease. From review his records, the patient's baseline creatinine normally runs around 1.7 to 2.0 mg/dL in the last few years. His baseline renal insufficiency is likely secondary to his known history of BPH and hypertension although he is currently not on any type of antihyperten
[2024-06-11 14:00] VITALS: BP 138/70; PULSE 59; RESP 16; TEMP 36.5; O2SAT 98
[2024-06-11] MEDS: ACETAMINOPHEN 325 MG TABLET 650 MG PO (14:40)
[2024-06-11 22:00] VITALS: BP 123/73; PULSE 54; RESP 18; TEMP 36.1; O2SAT 99
[2024-06-12 03:23] LABS: Protein, Total 6.4 g/dL (6.1-8.1)
[2024-06-12] MEDS: SODIUM CHLORIDE 0.9% IV 1,000 ML 100 ML IV CONT ×2 (05:27→23:52)
[2024-06-12 06:00] VITALS: BP 138/68; PULSE 51; RESP 14; TEMP 35.6; O2SAT 99
[2024-06-12 06:32] LABS: Basophils Percent Auto 0.4 % (0.2-1.2); Eosinophils Absolute Auto 0.5 K/mm3 (0-0.3); Eosinophils Percent Auto 4.7 % (0-4.4); Hemoglobin 10.2 g/dL (14.0-18.0); Immature Granulocyte Absolute 0.05 K/mm3 (0.00-0.031); Immature Granulocyte Percent A 0.5 % (0-0.5); Lymphocytes Absolute Auto 1.03 K/mm3 (0.9-3.2); Lymphocytes Percent Auto 10.1 % (18.3-44.2); Mean Corpuscular HGB Conc 31.9 g/dl (32-36); Mean Corpuscular Hemoglobin 30.5 pg (26-34); Mean Corpuscular Volume 95.8 fl (80-100); Mean Platelet Volume 10.2 fl (7.4-10.4); Monocytes Absolute Auto 0.5 K/mm3 (0.1-0.6); Monocytes Percent Auto 5.1 % (2.6-8.5); Neutrophils Absolute Auto 8.1 K/mm3 (1.3-6.7); Neutrophils Percent Auto 79.2 % (45.5-73.1); Platelet Count Result 290 k/mm3 (150-375); Red Blood Count 3.34 M/mm3 (4.6-6.20); White Blood Count 10.2 K/mm3 (4.5-10.0)
[2024-06-12 06:48] LABS: Alanine Aminotransferase 20 U/L (6-50); Albumin Level 2.9 g/dL (3.5-5.1); Alkaline Phosphatase 90 U/L (38-126); Anion Gap 8 mmol/L (4-12); Aspartate Amino Transferase 22 U/L (17-59); Bilirubin,Total 0.3 mg/dL (0.2-1.3); Blood Urea Nitrogen 52 mg/dL (9-20); Calcium 9.1 mg/dL (8.4-10.2); Carbon Dioxide 20 mmol/L (22-30); Chloride 112 mmol/L (98-107); Estimated CRCL calculation 15 ml/min; Estimated Glomerular Filt Rate 19; Glucose 91 mg/dL (65-110); Potassium 5.2 mmol/L (3.4-5.0); Sodium 140 mmol/L (137-145)
--- NOTE | 2024-06-12 07:05 | WPDUROPN2 ---
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 Patient currently on maximal therapy to shrink his prostate ( finasteride and tamsulosin). Once his serum creatinine normalizes we can give a voiding trial but will need very careful follow-up. My suspicion is he will fail a voiding trial. At that point he would need urodynamics and consideration for surgical management of BPH Subjective Subjective Date/Time Seen: 06/12/24 07:05 Interval history: Comfortable, tolerating catheter. Urine clear Review of Systems Cardiovascular: Cardiovascular: Denies chest pain, Denies lightheadedness, Denies palpitations and Denies dyspnea Respiratory: Respiratory: Denies dyspnea Gastrointestinal: Gastrointestinal: Denies diarrhea, Denies nausea and Denies vomiting Genitourinary: Genitourinary: Denies hematuria and Denies dysuria Endocrine: Endocrine: Denies palpitations Exam Const: General: no acute distress Resp: Effort & Inspection: normal respiratory effort GI: Inspection: non-distended GI Palp: No abdominal tenderness and No Guarding due to palpation present (GI) Auscultation: normal bowel sounds Urinary Catheter: Urinary Catheter: patent and draining and urine clear Objective Data Vital Signs Vital Signs: Vital Signs - 24 hr 06/11/24 08:20 06/11/24 11:14 06/11/24 14:00 Temperature 97.7 F Pulse Rate 59 L Respiratory Rate 16 Blood Pressure 138/70 Pulse Oximetry 95 98 Oxygen Delivery Room Air Room Air 06/11/24 22:00 06/12/24 06:00 Temperature 97.0 F L 96.1 F L Pulse Rate 54 L 51 L Respiratory Rate 18 14 Blood Pressure 123/73 138/68 Pulse Oximetry 99 99 Oxygen Delivery Intake/Output Intake/Output: Intake & Output 06/09/24 06/10/24 06/11/2424 23:59 23:59 23:59 23:59 Intake Total 1035 3840 1000 Output Total 320 4300 Balance 715 -460 1000 Meds/Results Medications: Active Medications Generic Name Dose Route Start Last Admin Trade Name Freq PRN Reason Stop Dose Admin Acetaminophen 650 mg 06/11/24 14:27 06/11/24 14:40 Acetaminophen 325 Mg Tablet PO 650 mg Q4H PRN Administration Pain 1-3 Finasteride 5 mg 06/11/24 09:00 06/11/24 08:23 Finasteride 5 Mg Tablet PO 5 mg DAILY QAMAR Administration Ceftriaxone Sodium 1 gm in 50 mls @ 100 mls/hr 06/11/24 18:00 06/11/24 17:21 Rocephin 1 Gm/Ns 50 Ml IVPB 100 mls/hr Q24H QAMAR Administration Sodium Chloride 1,000 mls @ 100 mls/hr 06/11/24 08:25 06/12/24 05:27 Normal Saline Iv IV CONT 100 mls/hr .Q10H QAMAR Administration Non-Formulary Medication 210 mg 06/11/24 09:00 Ferric Citrate PO 07/11/24 08:59 DAILY QAMAR Tamsulosin HCl 0.4 mg 06/10/24 22:40 06/11/24 20:19 Tamsulosin Hcl 0.4 Mg Capsule PO 0.4 mg QHS QAMAR Administration Radiology Results: ITS Impressions Renal Ultrasound 06/10/24 20:00 IMPRESSION: Severe bilateral hydronephrosis. Fully distended urinary bladder despite the presence of a Patrick catheter which is apparently not clamped. Correlate for catheter function. Bladder wall thickening may be secondary to cystitis or chronic outlet obstruction. Labs Labs: Laboratory Results - last 24 hr 06/10/24 06/12/24 06/12/24 19:34 06:20 06:21 WBC 10.2 H RBC 3.34 L Hgb 10.2 L Hct 32.0 L MCV 95.8 MCH 30.5 MCHC 31.9 L RDW 14.0 Plt Count
--- NOTE | 2024-06-12 08:35 | PM.IMPN ---
Progress Note: A&P Assessment and Plan (1) Urinary tract infection: Code(s): N39.0 - Urinary tract infection, site not specified Status: Acute Assessment and Plan: - UA: turbid appearance, 2+ protein, 3+ blood, 3+ leukocyte, 21-50 RBC, > 100 WBC - UC obtained on 06/10: Final - No growth - No previous micro to be reviewed - started on Rocephin 06/10, discontinued on 06/12 (2) Clot hematuria: Code(s): R31.0 - Gross hematuria Status: Acute Assessment and Plan: Bladder scan was done in the ER which revealed urinary retention and Higgins catheter has been placed. Patient then started passing clots. - CBI started on 06/10, higgins bag without clots or hematuria. Discontinued by urology on 06/11. - Urology consulted Per urology likely 2/2 rapid decompression (3) Urinary retention: Code(s): R33.9 - Retention of urine, unspecified Status: Acute Assessment and Plan: Bladder scan was done in the ER which revealed urinary retention. Likely from bladder outlet obstruction 2/2 BPH. - Renal US: Severe bilateral hydronephrosis. Fully distended urinary bladder despite the presence of a Higgins catheter which is apparently not clamped. Correlate for catheter function. Bladder wall thickening may be secondary to cystitis or chronic outlet obstruction. - Higgins catheter placed - Urology consulted Patient currently on maximal therapy to shrink his prostate ( finasteride and tamsulosin). Once his serum creatinine normalizes can do voiding trial but will need very careful follow-up. Urology suspects he will fail a voiding trial. At that point he would need urodynamics and consideration for surgical management of BPH (4) LOU (acute kidney injury): Code(s): N17.9 - Acute kidney failure, unspecified Status: Acute Assessment and Plan: BUN/Cr 88/4.7 on admission. Was 1.8 in 2022. Likely etiology is patients urinary retention. - BUN/Cr 52/3.1 on am labs - Renal US: Severe bilateral hydronephrosis. Fully distended urinary bladder despite the presence of a Higgins catheter which is apparently not clamped. Correlate for catheter function. Bladder wall thickening may be secondary to cystitis or chronic outlet obstruction. - IV fluids - Avoid nephrotoxic medications - Renally dose medications - Monitor vital signs and I/O - Monitor renal function with daily labs - Nephrology consulted (5) Essential (primary) hypertension: Code(s): I10 - Essential (primary) hypertension Status: Acute Assessment and Plan: Chronic, stable on home medications. - Tamsulosin 0.4 mg daily - Monitor Time Spent With Patient Time with patient: 25 - 35 minutes Subjective Date/time seen: 06/12/24 08:35 Interval history: 84 year old male with past medical history of hypertension and chronic kidney disease presents to the hospital for dysuria. Patient is pleasant sitting up in his chair. He has no complaints at this time, denying chest pain, shortness of breath, nausea/vomiting. His kidney function is improving on am labs. BUN/Cr 52/3.1. Continuing the fluids at this time. Nephrology continues to follow. Urology saw patient today. He remains on tamsulosin and finasteride for BPH. The higgins stays in place. Will attempt a voiding trial as kidney function improves. Review of Systems Review of Systems: All systems reviewed & are unremarkable except as noted in HPI and below Exam Narrative: AF HR 51 RR 14 SpO2 99 BP 138/68 General: male in no acute respiratory distress who is nontoxic appearing, lying semi recumbent in bed. HEENT: Normocephalic. Atraumatic. Pupils equal round reactive to light. Extraocular movement intact. Sclera clear and anicteric. No facial asymmetry. Chest: Lungs are clear to auscultation bilaterally. No wheezes or crackles. CV: Heart was regular rate and rhythm. S1/S2. No murmurs, gallops, or rubs. Abd: Abdomen was soft. Nontender. Nondistended. Positive bowel sounds. No o
--- NOTE | 2024-06-12 08:36 | PCPTNOTE ---
pt away from room for ultrasound and CT according to RN, will follow
[2024-06-12] MEDS: FINASTERIDE 5 MG TABLET PO (09:35)
[2024-06-12 13:57] LABS: Total Protein Urine Random 136 mg/dL; Urea Random Urine 688 MG/DL
[2024-06-12 13:59] LABS: Creatinine Urine 78.5 mg/dL; Total Protein Urine Random 135 mg/dL; Ur Ttl Prot Creatinine Ratio 1.72 mg/mg (0-0.20)
[2024-06-12 14:00] VITALS: BP 148/72; PULSE 88; RESP 16; TEMP 36.6; O2SAT 98
[2024-06-12 14:08] LABS: Sodium Urine Random 101 meq/L
--- NOTE | 2024-06-12 14:30 | PM.PNNEP ---
Progress Note: A&P Assessment and Plan (1) LOU (acute kidney injury): Code(s): N17.9 - Acute kidney failure, unspecified Status: Acute Assessment and Plan: slow improvement noted felt to be secondary to urinary retention/obstructive uropathy along with UTI renal ultrasound with bilateral hydronephrosis repeat renal ultrasound with persistent hydronephrosis s/p higgins catheter placement (with immediate output of 1L of urine in the ER) follow repeat labs and UOP (2) Stage 3b chronic kidney disease: Code(s): N18.32 - Chronic kidney disease, stage 3b Status: Chronic Assessment and Plan: baseline creatinine runs ~ 1.7 - 2.0mg/dl from review of records presumably secondary to HTN, BPH, and age-related change (3) Urinary retention: Code(s): R33.9 - Retention of urine, unspecified Status: Acute Assessment and Plan: as noted since admission imaging studies noted resumed on tamsulosin and finasteride Urology following with recommendations reviewed (4) Urinary tract infection: Code(s): N39.0 - Urinary tract infection, site not specified Status: Acute Assessment and Plan: as suggested by admission UA follow culture results - negative to date on antibiotics (5) Essential (primary) hypertension: Code(s): I10 - Essential (primary) hypertension Status: Chronic Assessment and Plan: despite history, not on any anti-HTN medications follow trend of hemodynamics Will continue to follow. Subjective Date/time seen: 06/12/24 14:30 Interval history: Follow-up for acute kidney injury/acute renal failure on chronic kidney disease. Renal function/creatinine continues to improve with ongoing therapy/interventions; no apparent distress noted at the time of my visit; no issues/events overnight or earlier this morning. Exam Narrative: General: elderly but WD/WN male in NAD Heart: normal S1 and S2; no rub Lungs: clear to auscultation Abdomen: soft, nontender, nondistended, positive bowel sounds Extremities: no cyanosis or clubbing; no edema Skin: warm and dry Objective Data Vital Signs Vital Signs: Vital Signs Temp Pulse Resp BP Pulse Ox O2 Del Method 06/12/24 11:46 Room Air 06/12/24 09:30 Room Air 06/12/24 06:00 96.1 F L 51 L 14 138/68 99 08/07/24 22:00 97.0 F L 54 L 18 123/73 99 Intake/Output Intake/Output: Intake & Output 06/09/24 06/10/24 06/11/24 06/12/24 23:59 23:59 23:59 23:59 Intake Total 1035 3890 1240 Output Total 320 4300 Balance 715 -410 1240 Meds/Results Medications: Active Medications Generic Name Dose Route Start Last Admin Trade Name Freq PRN Reason Stop Dose Admin Acetaminophen 650 mg 06/11/24 14:27 06/11/24 14:40 Acetaminophen 325 Mg Tablet PO 650 mg Q4H PRN Administration Pain 1-3 Finasteride 5 mg 06/11/24 09:00 06/12/24 09:35 Finasteride 5 Mg Tablet PO 5 mg DAILY QAMAR Administration Sodium Chloride 1,000 mls @ 100 mls/hr 06/11/24 08:25 06/12/24 05:27 Normal Saline Iv IV CONT 100 mls/hr .Q10H QAMAR Administration Non-Formulary Medication 210 mg 06/11/24 09:00 Ferric Citrate PO 07/11/24 08:59 DAILY QAMAR Senna/Docusate Sodium 1 tab 06/12/24 21:00 Senna/Docusate Sodium Tablet PO HS QAMAR Tamsulosin HCl 0.4 mg 06/10/24 22:40 06/11/24 20:19 Tamsulosin Hcl 0.4 Mg Capsule PO 0.4 mg QHS QAMAR Administration Radiology Results: ITS Impressions Abdomen/Pelvis CT 06/12/24 08:56 IMPRESSION: 1. Severe bilateral hydronephrosis and hydroureter. Cortical thinning of the kidneys. 2. Severely enlarged prostate. 3. Diffuse bladder wall thickening, likely secondary to chronic outlet obstruction. 4. Bladder stones. Nonobstructing left kidney stone. Renal Ultrasound 06/12/24 09:03 IMPRESSION: 1. Severe bilateral hydronephrosis. 2. Bladder stones.
--- NOTE | 2024-06-12 14:30 | P.PNNP_ITS ---
Progress Note: A&P Assessment and Plan (1) LOU (acute kidney injury): Code(s): N17.9 - Acute kidney failure, unspecified Status: Acute Assessment and Plan: * slow improvement noted * felt to be secondary to urinary retention/obstructive uropathy along with UTI * renal ultrasound with bilateral hydronephrosis * repeat renal ultrasound with persistent hydronephrosis * s/p higgins catheter placement (with immediate output of 1L of urine in the ER) * follow repeat labs and UOP (2) Stage 3b chronic kidney disease: Code(s): N18.32 - Chronic kidney disease, stage 3b Status: Chronic Assessment and Plan: * baseline creatinine runs ~ 1.7 - 2.0mg/dl from review of records * presumably secondary to HTN, BPH, and age-related change (3) Urinary retention: Code(s): R33.9 - Retention of urine, unspecified Status: Acute Assessment and Plan: * as noted since admission * imaging studies noted * resumed on tamsulosin and finasteride * Urology following with recommendations reviewed (4) Urinary tract infection: Code(s): N39.0 - Urinary tract infection, site not specified Status: Acute Assessment and Plan: * as suggested by admission UA * follow culture results - negative to date * on antibiotics (5) Essential (primary) hypertension: Code(s): I10 - Essential (primary) hypertension Status: Chronic Assessment and Plan: * despite history, not on any anti-HTN medications * follow trend of hemodynamics Will continue to follow. Subjective Date/time seen: 06/12/24 14:30 Interval history: Follow-up for acute kidney injury/acute renal failure on chronic kidney disease. Renal function/creatinine continues to improve with ongoing therapy/interventions; no apparent distress noted at the time of my visit; no issues/events overnight or earlier this morning. Exam Narrative: General: elderly but WD/WN male in NAD Heart: normal S1 and S2; no rub Lungs: clear to auscultation Abdomen: soft, nontender, nondistended, positive bowel sounds Extremities: no cyanosis or clubbing; no edema Skin: warm and dry Objective Data Vital Signs Vital Signs: Vital Signs Temp Pulse Resp BP Pulse Ox O2 Del Method 06/12/24 11:46 Room Air 06/12/24 09:30 Room Air 06/12/24 06:00 96.1 F L 51 L 14 138/68 99 06/11/24 22:00 97.0 F L 54 L 18 123/73 99 Intake/Output Intake/Output: Intake & Output 06/09/24 06/10/24 06/11/24 06/12/24 23:59 23:59 23:59 23:59 Intake Total 1035 3890 1240 Output Total 320 4300 Balance 715 -410 1240 Meds/Results Medications: Active Medications Generic Name Dose Route Start Last Admin Trade Name Freq PRN Reason Stop Dose Admin Acetaminophen 650 mg 06/11/24 14:27 06/11/24 14:40 Acetaminophen 325 Mg Tablet PO 650 mg Q4H PRN Administration Pain 1-3 Finasteride 5 mg 06/11/24 09:00 06/12/24 09:35 Finasteride 5 Mg Tablet PO 5 mg DAILY QAMAR Administration Sodium Chloride 1,000 mls @ 100 mls/hr 06/11/24 08:25 06/12/24 05:27 Normal Saline Iv IV CONT 100 mls/hr .Q10H QAMAR Administrati
[2024-06-12 14:38] LABS: Abnormal Protein Band 1 1.9 g/dL (NONE DETECTED); Albumin 2.7 g/dL (3.8-4.8); Alpha 1 Globulin 0.4 g/dL (0.2-0.3); Alpha 2 Globulin 0.8 g/dL (0.5-0.9); Beta 1 Globulin 0.3 g/dL (0.4-0.6); Gamma Globulin 2.1 g/dL (0.8-1.7)
[2024-06-12] MEDS: SENNA/DOCUSATE SODIUM TABLET 1 TAB PO (20:28)
[2024-06-12] MEDS: TAMSULOSIN HCL 0.4 MG CAPSULE PO (20:28)
[2024-06-12 21:08] VITALS: BP 121/66; PULSE 58; RESP 12; TEMP 37.5; O2SAT 100
[2024-06-13 06:00] VITALS: BP 144/65; PULSE 112; RESP 16; TEMP 37.5; O2SAT 100
[2024-06-13 06:09] LABS: Basophils Percent Auto 0.5 % (0.2-1.2); Eosinophils Absolute Auto 0.5 K/mm3 (0-0.3); Eosinophils Percent Auto 6.1 % (0-4.4); Hematocrit 29.6 % (42.0-52.0); Hemoglobin 9.8 g/dL (14.0-18.0); Immature Granulocyte Absolute 0.04 K/mm3 (0.00-0.031); Immature Granulocyte Percent A 0.5 % (0-0.5); Lymphocytes Absolute Auto 0.95 K/mm3 (0.9-3.2); Lymphocytes Percent Auto 11.1 % (18.3-44.2); Mean Corpuscular HGB Conc 33.1 g/dl (32-36); Mean Corpuscular Hemoglobin 31.6 pg (26-34); Mean Corpuscular Volume 95.5 fl (80-100); Mean Platelet Volume 10.6 fl (7.4-10.4); Monocytes Absolute Auto 0.5 K/mm3 (0.1-0.6); Monocytes Percent Auto 5.5 % (2.6-8.5); Neutrophils Absolute Auto 6.5 K/mm3 (1.3-6.7); Neutrophils Percent Auto 76.3 % (45.5-73.1); Platelet Count Result 274 k/mm3 (150-375); Red Cell Distribution Width 14.4 % (11.5-14.5); White Blood Count 8.5 K/mm3 (4.5-10.0)
[2024-06-13 06:34] LABS: Alanine Aminotransferase 18 U/L (6-50); Albumin Level 2.7 g/dL (3.5-5.1); Alkaline Phosphatase 77 U/L (38-126); Anion Gap 8 mmol/L (4-12); Aspartate Amino Transferase 23 U/L (17-59); Bilirubin,Total 0.4 mg/dL (0.2-1.3); Blood Urea Nitrogen 50 mg/dL (9-20); Calcium 8.7 mg/dL (8.4-10.2); Carbon Dioxide 20 mmol/L (22-30); Chloride 112 mmol/L (98-107); Estimated CRCL calculation 20 ml/min; Estimated Glomerular Filt Rate 27; Glucose 88 mg/dL (65-110); Sodium 140 mmol/L (137-145)
--- NOTE | 2024-06-13 07:53 | WPDUROPN2 ---
Progress Note: A&P Assessment and Plan (1) CKD (chronic kidney disease): Qualifiers: Chronic kidney disease stage 3 subtype: stage 3b (GFR 30-44) Code(s): N18.9 - Chronic kidney disease, unspecified Status: Acute (2) LOU (acute kidney injury): Code(s): N17.9 - Acute kidney failure, unspecified Status: Acute (3) Urinary retention: Code(s): R33.9 - Retention of urine, unspecified Status: Acute (4) BPH loc w urin obs/LUTS: Code(s): N40.1 - Benign prostatic hyperplasia with lower urinary tract symptoms Status: Acute Assessment and Plan: Creat. improving with simple catheter drainage. Urine clear, no significant hematuria or clots If possible will try to manage with management of bladder outlet obstruction / avoid placing stents, if possible. Pt. very anxious for discharge and I'm OK with that given improvement in creat. Should go home with indwelling catheter / on Finasteride and Tamsulosin. My office will call to arrange outpatient EP-1 and cystoscopy. Subjective Subjective Date/Time Seen: 06/13/24 07:53 Interval history: Comfortable, tolerating catheter -> very anxious for discharge Review of Systems Cardiovascular: Cardiovascular: Denies chest pain, Denies lightheadedness, Denies palpitations and Denies dyspnea Respiratory: Respiratory: Denies dyspnea Gastrointestinal: Gastrointestinal: Denies diarrhea, Denies nausea and Denies vomiting Genitourinary: Genitourinary: Denies hematuria and Denies dysuria Endocrine: Endocrine: Denies palpitations Exam Const: General: no acute distress Resp: Effort & Inspection: normal respiratory effort GI: Inspection: non-distended GI Palp: No abdominal tenderness and No Guarding due to palpation present (GI) Auscultation: normal bowel sounds Objective Data Vital Signs Vital Signs: Vital Signs - 24 hr 06/12/24 09:30 06/12/24 11:46 06/12/24 14:00 Temperature 97.9 F Pulse Rate 88 Respiratory Rate 16 Blood Pressure 148/72 H Pulse Oximetry 98 Oxygen Delivery Room Air Room Air 06/12/24 21:08 06/13/24 06:00 Temperature 99.5 F 99.5 F Pulse Rate 58 L 112 H Respiratory Rate 12 16 Blood Pressure 121/66 144/65 H Pulse Oximetry 100 100 Oxygen Delivery Intake/Output Intake/Output: Intake & Output 06/10/24 06/11/24 06/12/24 06/13/24 23:59 23:59 23:59 23:59 Intake Total 1035 3890 4110 450 Output Total 320 4300 2500 1350 Balance 715 -410 1610 -900 Meds/Results Medications: Active Medications Generic Name Dose Route Start Last Admin Trade Name Freq PRN Reason Stop Dose Admin Acetaminophen 650 mg 06/11/24 14:27 06/11/24 14:40 Acetaminophen 325 Mg Tablet PO 650 mg Q4H PRN Administration Pain 1-3 Finasteride 5 mg 06/11/24 09:00 06/12/24 09:35 Finasteride 5 Mg Tablet PO 5 mg DAILY QAMAR Administration Sodium Chloride 1,000 mls @ 100 mls/hr 06/11/24 08:25 06/12/24 23:52 Normal Saline Iv IV CONT 100 mls/hr .Q10H QAMAR Administration Non-Formulary Medication 210 mg 06/11/24 09:00 Ferric Citrate PO 07/11/24 08:59 DAILY QAMAR Senna/Docusate Sodium 1 tab 06/12/24 21:00 06/12/24 20:28 Senna/Docusate Sodium Tablet PO 1 tab HS QAMAR Administration Tamsulosin HCl 0.4 mg 06/10/24 22:40 06/12/24 20:28 Tamsulosin Hcl 0.4 Mg Capsule PO 0.4 mg QHS QAMAR Administration Radiology Results: ITS Impressions Abdomen/Pelvis CT 06/12/24 08:56 IMPRESSION: 1. Severe bilateral hydronephrosis and hydroureter. Cortical thinning of the kidneys. 2. Severely enlarged prostate. 3. Diffuse bladder wall thickening, likely secondary to chronic outlet obstruction. 4. Bladder stones. Nonobstructing left kidney stone. Renal Ultrasound 06/12/24 09:03 IMPRESSION: 1. Severe bilateral hydronephrosis. 2. Bladder stones. Labs Labs: Laboratory Results - last 24 hr 06/10/24 06/12/24 06/12/24 19:34
--- NOTE | 2024-06-13 08:14 | P.PNNP_ITS ---
Progress Note: A&P Assessment and Plan (1) LOU (acute kidney injury): Code(s): N17.9 - Acute kidney failure, unspecified Status: Acute Assessment and Plan: * acute kidney injury. * felt to be secondary to urinary retention/obstructive uropathy along with UTI * renal ultrasound with bilateral hydronephrosis * repeat renal ultrasound with persistent hydronephrosis * s/p higgins catheter placement (with immediate output of 1L of urine in the ER) * His creatinine peaked at 4.7 and has dropped continuously since Higgins catheter placement. Today it is 2.3. this is almost baseline. * No objection for discharge. Dr. Mendez told the patient that he might be going home soon. The patient is eager to go! * Will check another creatinine tomorrow if he is still here * If discharged he should follow-up with Dr. Box in the office. (2) Stage 3b chronic kidney disease: Code(s): N18.32 - Chronic kidney disease, stage 3b Status: Chronic Assessment and Plan: * baseline creatinine runs ~ 1.7 - 2.0mg/dl from review of records * presumably secondary to HTN, BPH, and age-related change (3) Urinary retention: Code(s): R33.9 - Retention of urine, unspecified Status: Acute Assessment and Plan: * as noted since admission * imaging studies noted * resumed on tamsulosin and finasteride * Urology following with recommendations reviewed (4) Urinary tract infection: Code(s): N39.0 - Urinary tract infection, site not specified Status: Acute Assessment and Plan: * as suggested by admission UA * urine culture is negative * on Ceftriaxone (5) Essential (primary) hypertension: Code(s): I10 - Essential (primary) hypertension Status: Chronic Assessment and Plan: * despite history, not on any anti-HTN medications * systolic running between 120 and 148. * follow trend of hemodynamics Will continue to follow. Subjective Date/time seen: 06/13/24 08:14 Interval history: Bird feels better today. no chest pain or shortness of breath. He is eating well. Exam Narrative: General: elderly but WD/WN male in NAD Heart: normal S1 and S2; no rub Lungs: clear to auscultation Abdomen: soft, nontender, nondistended, positive bowel sounds Extremities: no cyanosis or clubbing; no edema Skin: No rash Objective Data Vital Signs Vital Signs: Vital Signs - 24 hr 06/12/24 09:30 06/12/24 11:46 06/12/24 14:00 Temperature 97.9 F Pulse Rate 88 Respiratory Rate 16 Blood Pressure 148/72 H Pulse Oximetry 98 Oxygen Delivery Room Air Room Air 06/12/24 21:08 06/13/24 06:00 Temperature 99.5 F 99.5 F Pulse Rate 58 L 112 H Respiratory Rate 12 16 Blood Pressure 121/66 144/65 H Pulse Oximetry 100 100 Oxygen Delivery Intake/Output Intake/Output: Intake & Output 06/10/24 06/11/24 06/12/24 06/13/24 23:59 23:59 23:59 23:59 Intake Total 1035 3890 4110 450 Output Total 320 4300 2500 1350 Balance 715 410 1610 900 Meds/Results Medications: Active Medications Generic Name Dose Route Start Last Admin Trade Name Freq PRN Reason S
--- NOTE | 2024-06-13 08:14 | PM.PNNEP ---
Progress Note: A&P Assessment and Plan (1) LOU (acute kidney injury): Code(s): N17.9 - Acute kidney failure, unspecified Status: Acute Assessment and Plan: acute kidney injury. felt to be secondary to urinary retention/obstructive uropathy along with UTI renal ultrasound with bilateral hydronephrosis repeat renal ultrasound with persistent hydronephrosis s/p higgins catheter placement (with immediate output of 1L of urine in the ER) His creatinine peaked at 4.7 and has dropped continuously since Higgins catheter placement. Today it is 2.3. this is almost baseline. No objection for discharge. Dr. Mendez told the patient that he might be going home soon. The patient is eager to go! Will check another creatinine tomorrow if he is still here If discharged he should follow-up with Dr. Box in the office. (2) Stage 3b chronic kidney disease: Code(s): N18.32 - Chronic kidney disease, stage 3b Status: Chronic Assessment and Plan: baseline creatinine runs ~ 1.7 - 2.0mg/dl from review of records presumably secondary to HTN, BPH, and age-related change (3) Urinary retention: Code(s): R33.9 - Retention of urine, unspecified Status: Acute Assessment and Plan: as noted since admission imaging studies noted resumed on tamsulosin and finasteride Urology following with recommendations reviewed (4) Urinary tract infection: Code(s): N39.0 - Urinary tract infection, site not specified Status: Acute Assessment and Plan: as suggested by admission UA urine culture is negative on Ceftriaxone (5) Essential (primary) hypertension: Code(s): I10 - Essential (primary) hypertension Status: Chronic Assessment and Plan: despite history, not on any anti-HTN medications systolic running between 120 and 148. follow trend of hemodynamics Will continue to follow. Subjective Date/time seen: 06/13/24 08:14 Interval history: Bird feels better today. no chest pain or shortness of breath. He is eating well. Exam Narrative: General: elderly but WD/WN male in NAD Heart: normal S1 and S2; no rub Lungs: clear to auscultation Abdomen: soft, nontender, nondistended, positive bowel sounds Extremities: no cyanosis or clubbing; no edema Skin: No rash Objective Data Vital Signs Vital Signs: Vital Signs - 24 hr 06/12/24 09:30 06/12/24 11:46 06/12/24 14:00 Temperature 97.9 F Pulse Rate 88 Respiratory Rate 16 Blood Pressure 148/72 H Pulse Oximetry 98 Oxygen Delivery Room Air Room Air 06/12/24 21:08 06/13/24 06:00 Temperature 99.5 F 99.5 F Pulse Rate 58 L 112 H Respiratory Rate 12 16 Blood Pressure 121/66 144/65 H Pulse Oximetry 100 100 Oxygen Delivery Intake/Output Intake/Output: Intake & Output 06/10/24 06/11/24 06/12/24 06/13/24 23:59 23:59 23:59 23:59 Intake Total 1035 3890 4110 450 Output Total 320 4300 2500 1350 Balance 715 -410 1610 -900 Meds/Results Medications: Active Medications Generic Name Dose Route Start Last Admin Trade Name Freq PRN Reason Stop Dose Admin Acetaminophen 650 mg 06/11/24 14:27 06/11/24 14:40 Acetaminophen 325 Mg Tablet PO 650 mg Q4H PRN Administration Pain 1-3 Finasteride 5 mg 06/11/24 09:00 06/12/24 09:35 Finasteride 5 Mg Tablet PO 5 mg DAILY QAMAR Administration Sodium Chloride 1,000 mls @ 100 mls/hr 06/11/24 08:25 06/12/24 23:52 Normal Saline Iv IV CONT 100 mls/hr .Q10H QAMAR Administration Non-Formulary Medication 210 mg 06/11/24 09:00 Ferric Citrate PO 07/11/24 08:59 DAILY QAMAR Senna/Docusate Sodium 1 tab 06/12/24 21:00 06/12/24 20:28 Senna/Docusate Sodium Tablet PO 1 tab HS QAMAR Administration Tamsulosin HCl 0.4 mg 06/10/24 22:40 06/12/24 20:28 Tamsulosin Hcl 0.4 Mg Capsule PO 0.4 mg QHS QAMAR Administration Radiology Results: ITS I
[2024-06-13] MEDS: FINASTERIDE 5 MG TABLET PO (09:32)
[2024-06-13] MEDS: SODIUM CHLORIDE 0.9% IV 1,000 ML 100 ML IV CONT (11:52)
[2024-06-13 13:21] VITALS: PULSE 75
--- NOTE | 2024-06-13 13:31 | PM.DS ---
DS: Admitting Diagnosis Discharge Date 06/13/2024 Admitting Diagnosis urinary tract infection clot hematuria urinary retention acute kidney injury essential hypertension DS: Discharge Diagnosis Discharge Diagnosis (1) Urinary tract infection: Code(s): N39.0 - Urinary tract infection, site not specified Status: Acute (2) Clot hematuria: Code(s): R31.0 - Gross hematuria Status: Acute (3) Urinary retention: Code(s): R33.9 - Retention of urine, unspecified Status: Acute (4) LOU (acute kidney injury): Code(s): N17.9 - Acute kidney failure, unspecified Status: Acute (5) Essential (primary) hypertension: Code(s): I10 - Essential (primary) hypertension Status: Chronic DS: Summary Hospital Course Reason for hospitalization: urinary tract infection clot hematuria urinary retention acute kidney injury essential hypertension Hospital Course: 84 year old male with past medical history of hypertension and chronic kidney disease presents to the hospital for dysuria. On admission patient was noted to have a BUN/Cr of 88/4.7. A bladder scan was obtained in the ER which revealed urinary retention. A renal US showed severe bilateral hydronephrosis with a fully distended urinary bladder. A Higgins catheter was placed at that time and patient started having hematuria with clots. A UA was concerning for UTI and patient was started on IV rocephin and IV fluids for the LOU. Urology and nephrology were consulted at that time. Patient was started on CBI by urology from 06/10-06/11. Per urology hematuria was likely due to rapid decompression. Patients urinary retention is related to his BPH. He is already on the maximal therapy to shrink his prostate ( finasteride and tamsulosin). Per urology at that point he would likely need urodynamics and consideration for surgical management of BPH. Urology plans to follow patient outpatient for an EP-1 and cystoscopy. Patient will be discharged with higgins in place on the BPH medications. Patients LOU continued to improve with fluids and higgins placement as the likely etiology is urinary retention. Prior to discharge patients BUN/Cr was 50/2.3 with baseline 1.7-2.0. Per nephrology patient okay to discharge at this time. Will obtain a CMP in 3 days to reassess kidney function. Patient is to follow up with nephrology in the outpatient setting for new CKD. Prior to discharge patient had no complaints, denying chest pain, shortness of breath, nausea/vomiting and changes in bowel. Patient discharged home with family in stable condition. His higgins catheter remains in place. He is to follow up with his PCP, urology and nephrology as scheduled. Status at Discharge Functional status at discharge: independent ambulation Time Spent with Patient Time attestation: Total time spent providing and/or coordinating discharge services: Time spent: Greater than 30 minutes Exam Narrative: AF HR 75 RR 18 SpO2 99 BP 128/60 General: male in no acute respiratory distress who is nontoxic appearing, lying semi recumbent in bed. HEENT: No facial asymmetry. Chest: Lungs are clear to auscultation bilaterally. No wheezes or crackles. CV: Heart was regular rate and rhythm. S1/S2. No murmurs, gallops, or rubs. Abd: Abdomen was soft. Nontender. Nondistended. Positive bowel sounds. No organomegaly or masses. : higgins catheter in place. No hematuria or clots present, clear straw colored urine. DS: Data Data Completed and Pending Completed studies during hospitalization: renal us abdomen/pelvis CT renal us Labs on day of discharge: Labs from last 24 hours 06/13/24 06/12/24 06/12/24 05:33 12:14 12:14 WBC 8.5 RBC 3.10 L Hgb 9.8 L Hct 29.6 L MCV 95.5 MCH 31.6 MCHC 33.1 RDW 14.4 Plt Count 274 MPV 10.6 H Immature Gran % (Auto) 0.5 Neut % (Auto) 76.3 H Lymph % (Auto) 11.1 L [place] % (Auto) 5.5 Eos % (Auto) 6.1 H Baso %
[2024-06-13 13:53] VITALS: BP 128/60; PULSE 75; RESP 18; TEMP 37.1; O2SAT 99
== END 2024-06-13 15:15 | disposition home or self-care (01) | DRG 683 ==
LOC: ANHED 15:43 → ANH3MEDSUR 18:33
PROVIDERS: Internal Medicine; Internal Medicine Nephrology; Admitting Provider Student in an Organized Health Care Education/Training Program; Emergency Provider Preventive Medicine Aerospace Medicine; PCP Emergency Medicine; Visit Provider Student in an Organized Health Care Education/Training Program
DX: N17.9 Acute kidney failure, unspecified (principal); N39.0 Urinary tract infection, site not specified; N40.1 Benign prostatic hyperplasia with lower urinary tract symptoms; R31.0 Gross hematuria; R33.8 Other retention of urine; N13.9 Obstructive and reflux uropathy, unspecified; N13.30 Unspecified hydronephrosis; I12.9 Hypertensive chronic kidney disease with stage 1 through stage 4 chronic kidney disease, or unspecified chronic kidney disease; D63.1 Anemia in chronic kidney disease; N18.32 Chronic kidney disease, stage 3b; E78.2 Mixed hyperlipidemia
CPT/HCPCS: 36415; 74176; 76775; 80048; 80053; 81001; 81050; 82550; 82570; 83605; 84155; 84156; 84165; 84300; 84540; 85025; 85999; 86334; 87086; 96361; 96365; 97161; 97165; 99285; A9270; G0378; J0696; J7030

== ENCOUNTER 2024-06-16 09:37 | Outpatient (CLI) | payer MEDICARE, SELFPAY ==
[2024-06-16 16:31] LABS: Alanine Aminotransferase 46 U/L (6-50); Albumin Level 3.2 g/dL (3.5-5.1); Alkaline Phosphatase 110 U/L (38-126); Anion Gap 9 mmol/L (4-12); Aspartate Amino Transferase 60 U/L (17-59); Bilirubin,Total 0.4 mg/dL (0.2-1.3); Blood Urea Nitrogen 44 mg/dL (9-20); Calcium 9.1 mg/dL (8.4-10.2); Carbon Dioxide 23 mmol/L (22-30); Chloride 106 mmol/L (98-107); Estimated Glomerular Filt Rate 29; Glucose 80 mg/dL (65-110); Sodium 138 mmol/L (137-145)
== END 2024-06-16 09:38 | disposition home or self-care (01) ==
LOC: ANHGOSHLAB 09:38
PROVIDERS: PCP Emergency Medicine; Visit Provider Student in an Organized Health Care Education/Training Program
DX: N17.9 Acute kidney failure, unspecified (principal)
CPT/HCPCS: 36415; 80053

== ENCOUNTER 2024-08-25 14:58 | Emergency (ER) | payer MEDICARE, SELFPAY ==
[2024-08-25 15:03] VITALS: BP 141/70; PULSE 67; RESP 16; TEMP 37; O2SAT 97
--- NOTE | 2024-08-25 15:10 | ED_ITS ---
HPI - Ear Problem General Chief complaint: Ear Stated complaint: Ears Time Seen by Provider: 08/25/24 15:10 Source: patient Mode of arrival: ambulatory Limitations: no limitations History of Present Illness HPI Narrative: 84 yo M presents with c/o unsteady gait, decreased hearing. Pt got a new hearing aid that he states worked for 3 days and then stopped. Thinks he has wax impaction that is causing him to be unstable. Pt fell while outside 3 days ago. Hit head on [place] [place]. Woke up next morning and remembers feel unstable when walking, like my body is leaning to the left . fell again yesterday and states hit head again. Pt c/o fatigue. Denies headache, N/V. All systems reviewed and negative except as noted above. Related Data Home Medications Medication Instructions Recorded Confirmed finasteride 5 mg tablet 5 mg PO DAILY 09/27/21 08/25/24 Allergies Allergy/AdvReac Type Severity Reaction Status Date / Time No Known Allergies Allergy Mild Verified 08/25/24 15:05 Review of Systems Review of Systems: CONSTITUTIONAL: Denies fever, chills, or sweats. EYES: Denies visual changes, redness, or discharge. ENT: Denies rhinorrhea, congestion, sore throat, or otalgia. Reports decreased hearing to right ear. CARDIOVASCULAR: Denies chest pain, palpitations, or edema. RESPIRATORY: Denies cough or dyspnea. GASTROINTESTINAL: Denies abdominal pain, nausea, vomiting, or diarrhea. GENITOURINARY: Denies dysuria or hematuria. SKIN: Denies rash or itching. MUSCULOSKELETAL: Denies back pain, joint pain, or myalgia. NEUROLOGIC: Denies headache, numbness, or weakness. Reports unstable gait, leading towards the left. PSYCHIATRIC: Denies anxiety or depression. All other systems reviewed are negative, except as documented in HPI. [facility] Past Medical History Medical History BPH loc w urin obs/LUTS Elevated PSA Surgical History Surgical History No significant past surgical history Family History Family History Father Hypertension Family history of elevated blood lipids Family history of cardiovascular disease Social History Social History Smoking status: Never smoker Second hand tobacco smoke exposure: No Alcohol intake: never Substance use: never Substance use type: does not use Do You Feel Safe in your Home?: Yes Lack of Transportation: No Lack of Food: Never True Current Housing: I Have Housing Concerned About Future Housing: No Difficulty Paying Gas/Electric Bills: No Difficulty Paying for Meds: No Currently Unemployed: No Education: Associate Degree Difficulty w/ Childcare or Family Care: No Living arrangements: with family 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 There is no relevant family history pertinent to the presenting complaint. Exam Narrative: GENERAL: This is a well-nourished, well-developed patient, in no apparent distress. HEAD: normocephalic, atraumatic. EYES: PERRL. Sclera clear/white. Vision is grossly intact. Extraocular motions intact EARS: External ears normal, your right ear canal clear without drainage, small amount of cerumen to left ear canal, after irrigation TMs normal without perforation. Hearing grossly intact. NOSE: External nose normal with no obvious nasal discharge, nares without redness, no rhinorrhea. THROAT: Mucous membranes moist, posterior pharynx clear. NECK: Neck supple, non-tender without lymphadenopathy, masses or thyromegaly. CARDIOVASCULAR: Regular rate and rhythm without murmurs, gallops, or rubs. RESPIRATORY: Clear to auscultation. Breath sounds equal bilaterally. No wheezes, rales, or rhonchi. SKIN: warm, Dry, intact with no suspicious lesions or rash, good texture and turgor. NEURO: awake, alert, and oriented to person, place and time. There were no obvious focal neurologic abnormalities. 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 Course Course Level of Care: Express Care Visit Vital Signs Vital signs: Vital Signs Temperature 37.0 C 08/25/24 15:03 Pulse Rate 67 08/25/24 15:03 Respiratory Rate 16 08/25/24 15:03 Blood Pressure 141/70 H 08/25/24 15:03 Pulse Oximetry 97 08/25/24 15:03 Oxygen Delivery Room Air 08/25/24 15:03 Temperature 37.0 C 08/25/24 15:03 Pulse Rate 67 08/25/24 15:03 Respiratory Rate 16 08/25/24 15:03 Blood Pressure 141/70 H 08/25/24 15:03 Pulse Oximetry 97 08/25/24 15:03 Oxygen Delivery Room Air 08/25/24 15:03 Reviewed Transfer Transfered to: [place] Transportation: Other (Private vehicle) Transfer rationale: fell 2 days ago and now feeling unstable, leaning towards left when ambulatory. fell again yesterday. Accepting physician: Virginia ELE Procedures Ear Wax Removal Left Ear: Ear Wax Removal Date: 08/25/24 Ear Wax Removal Time: 15:44 Results: Re-examined: cerumen removed completely TM Examination: TM(s) intact, normal appearance Ear Canal Exam: atraumatic Patient Tolerated Procedure: well Complications: no problems Technique: ear canal curetted Medical Decision Making MDM Narrative Medical decision making narrative: Transferring patient to ER for head CT due to recent fall, unstable gait. Urinalysis completed at 's request. Urinalysis positive for leukocytes, nitrites, blood. Patient does have a catheter that has been in place for 2 months. Unable to collect a clean sample at [facility] as we do not have proper equipment to change out bag/tubing. Patient is aware of diagnosis, understands and agrees to treatment plan. Anticipatory guidance given. Patient agrees to follow-up as directed and is aware of reasons to seek care at the emergency department. Portions of this record may have been created with voice recognition software Vital Signs Vital Signs: Vital Signs Temperature 37.0 C 08/25/24 15:03 Pulse Rate 67 08/25/24 15:03 Respiratory Rate 16 08/25/24 15:03 Blood Pressure 141/70 H 08/25/24 15:03 Pulse Oximetry 97 08/25/24 15:03 Oxygen Delivery Room Air 08/25/24 15:03 Temperature 37.0 C 08/25/24 15:03 Pulse Rate 67 08/25/24 15:03 Respiratory Rate 16 08/25/24 15:03 Blood Pressure 141/70 H 08/25/24 15:03 Pulse Oximetry 97 08/25/24 15:03 Oxygen Delivery Room Air 10/21/24 15:03 Discharge Plan Discharge Clinical Impression: Head injury, acute, without loss of consciousness, Altered gait Patient Disposition: Acute Care Hospital Condition: Stable Prescriptions: No Action finasteride 5 mg tablet 5 mg PO DAILY tamsulosin 0.4 mg capsule 0.4 mg PO QHS Qty: 90 0RF Follow-up/Referrals: Heriberto Delvalle MD [Primary Care Provider] - Time of Disposition: 15:30
[2024-08-25 15:32] LABS: EDUAAPPEAR Cloudy; EDUABILI Negative (Negative); EDUABLOOD 2+ (Negative); EDUACOLOR1 Yellow; EDUAGLUCOSE Negative (Negative); EDUAKETONE Negative (Negative); EDUALEUKO 3+ (Negative); EDUANITRATE Positive (Negative); EDUAPROTEIN 2+ (Negative); EDUAUROBILI 0.2
== END 2024-08-25 15:30 | disposition short-term general hospital (02) ==
PROVIDERS: Emergency Provider Nurse Practitioner Family; PCP Emergency Medicine
DX: S09.90XA Unspecified injury of head, initial encounter (principal); W19.XXXA Unspecified fall, initial encounter; R26.9 Unspecified abnormalities of gait and mobility; H61.22 Impacted cerumen, left ear; N40.1 Benign prostatic hyperplasia with lower urinary tract symptoms
CPT/HCPCS: 69210; 81003; 99212; G0463

== ENCOUNTER 2024-08-25 15:53 | Emergency (ER) | payer MEDICARE, SELFPAY ==
[2024-08-25] VITALS (9 sets, daily range): BP systolic 137–172; BP diastolic 64–96; PULSE 53–106; RESP 14–19; TEMP 36.7–37; O2SAT 96–100
--- NOTE | ~2024-08-25 | XR_ITS ---
EXAMINATION: XR chest 2V DATE: 08/25/2024 17:55 INDICATION: Weakness. Multiple falls. TECHNIQUE: frontal and lateral views of the chest were obtained. COMPARISON: Right shoulder CT dated 01/14/2021 FINDINGS: The lungs are clear with no focal airspace opacities, pulmonary edema, pleural effusion or pneumothor ax. Heart size is within normal limits for AP technique. Tortuous thoracic aorta. Likely benign chron ic sclerotic lesion at the right humeral neck. Old healed posterior right seventh rib fracture. IMPRESSION: 1. No acute cardiopulmonary disease. Reviewed, dictated and finalized at location A.
--- NOTE | ~2024-08-25 | CT_ITS ---
EXAMINATION: CT cervical spine wo con DATE: 08/25/2024 17:48 INDICATION: Multiple falls. Head injury. TECHNIQUE: Computed tomography (CT) of the cervical spine was performed without intravenous contrast. Automated exposure control and iterative reconstruction technique were employed. The dose-length pro duct was 243.54 mGy-cm. COMPARISON: None FINDINGS: 12 degrees cervical dextrocurvature. There is also reversal of the normal cervical lordosis. No spond ylolisthesis or facet subluxation. Severe osteoarthritis at the atlantoaxial articulation. Cervical v ertebral body heights are normal. There is slight chronic appearing anterior vertebral body height lo ss at T1. No acute fracture. There is anterior fusion across the severely narrowed C5-C6 disc space. Additional severe disc height loss at the remaining levels from C2-C3 through T1-T2. There is moderat e to severe uncovertebral osteoarthritis throughout the cervical spine. Multilevel mild central canal stenosis resulting from endplate osteophytes at C3-C4 through C6-C7 and more prominently at C4-C5 re sulting from additional small amount of ossification along the posterior longitudinal ligament at thi s level. Fusion across the left C2-C3 facet joint. There is additional severe facet osteoarthritis bi laterally at C3-C4 and on the right at C7-T1 and T1-T2. Mild to moderate facet osteoarthritis at the remainder of the cervical and upper thoracic spine. This contributes to moderate neural foraminal alberto nosis bilaterally at C3-C4 and C6-C7 through T2-T3 with mild neural from stenosis at the remaining ce rvical neural foramina. Atherosclerotic calcifications at the bilateral carotid bulbs, left greater t lombardi right. Cervical soft tissues are otherwise unremarkable. Tiny calcified granuloma at the left ape x. IMPRESSION: 1. Severe cervical spondylosis. No acute osseous abnormality. Reviewed, dictated and finalized at location A.
--- NOTE | ~2024-08-25 | CT_ITS ---
EXAMINATION: CT brain wo con DATE: 08/25/2024 17:48 INDICATION: Weakness, multiple falls and head injury TECHNIQUE: Computed tomography (CT) of the head was performed without intravenous contrast. Sagittal and coronal reconstructions were performed. The mA was adjusted according to patient size. Iterative reconstruction technique was employed. The dose-length product was 681.00 mGy-cm. COMPARISON: None FINDINGS: No fracture. No acute intracranial hemorrhage, acute infarction or abnormal extra axial fluid collect ion. Small old lacunar infarcts at the bilateral caudate nuclei and right lentiform nucleus. Addition al small central pontine old lacunar infarct. There is mild to moderate scattered white matter hypoat tenuation consistent with chronic small vessel ischemic disease. Symmetric prominence of the sulci an d ventricles consistent with mild to moderate age-appropriate diffuse cerebral volume loss. No mass/m ass effect. Changes of right intraocular lens replacement. The orbits and mastoid air cells are darlene l. Mucosal thickening the paranasal sinuses with dependently layering low-density mucus in the right maxillary sinus. High attenuation fluid layering dependently in the left maxillary sinus which could represent blood. IMPRESSION: 1. No calvarial fracture or acute intracranial process. 2. 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 3. Age-related changes in the brain consistent with mild to moderate diffuse volume loss and mild to moderate scattered white matter hypoattenuation consistent with chronic small vessel ischemic disease . 4. Relatively high attenuation fluid layering in the left maxillary sinus suspicious for blood. Corre late for epistaxis. Reviewed, dictated and finalized at location A. IMPRESSION: 1. No calvarial fracture or acute intracranial process. 2. 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 3. Age-related changes in the brain consistent with mild to moderate diffuse vo lume loss and mild to moderate scattered white matter hypoattenuation consisten t with chronic small vessel ischemic disease. 4. Relatively high attenuation fluid layering in the left maxillary sinus suspi cious for blood. Correlate for epistaxis.
--- NOTE | 2024-08-25 17:34 | ECG_ITS ---
Test Date: 2024-08-25 18:43:38 Measurements Intervals [place] Rate: 56 P: -33 MA: 145 QRS: 19 QRSD: 98 T: 45 QT: 438 QTc: 425 Interpretive Statements SINUS BRADYCARDIA No previous ECG available for comparison Electronically Signed On 08-26-2024 09:39:50 CDT by Zurdo Tate M.D.
[2024-08-25 18:26] LABS: Basophils Percent Auto 0.3 % (0.2-1.2); Eosinophils Absolute Auto 0.4 K/mm3 (0-0.3); Eosinophils Percent Auto 5.9 % (0-4.4); Hematocrit 33.6 % (42.0-52.0); Hemoglobin 11.1 g/dL (14.0-18.0); Immature Granulocyte Absolute 0.02 K/mm3 (0.00-0.031); Immature Granulocyte Percent A 0.3 % (0-0.5); Lymphocytes Absolute Auto 1.32 K/mm3 (0.9-3.2); Lymphocytes Percent Auto 19.5 % (18.3-44.2); Mean Corpuscular Hemoglobin 31.2 pg (26-34); Mean Corpuscular Volume 94.4 fl (80-100); Mean Platelet Volume 10.9 fl (7.4-10.4); Monocytes Absolute Auto 0.4 K/mm3 (0.1-0.6); Monocytes Percent Auto 6.5 % (2.6-8.5); Neutrophils Absolute Auto 4.6 K/mm3 (1.3-6.7); Neutrophils Percent Auto 67.5 % (45.5-73.1); Platelet Count Result 197 k/mm3 (150-375); Red Blood Count 3.56 M/mm3 (4.6-6.20); Red Cell Distribution Width 14.1 % (11.5-14.5); White Blood Count 6.8 K/mm3 (4.5-10.0)
[2024-08-25 18:36] LABS: Alanine Aminotransferase 13 U/L (6-50); Albumin Level 3.6 g/dL (3.5-5.1); Alkaline Phosphatase 99 U/L (38-126); Anion Gap 6 mmol/L (4-12); Aspartate Amino Transferase 25 U/L (17-59); Bilirubin,Total 0.3 mg/dL (0.2-1.3); Blood Urea Nitrogen 43 mg/dL (9-20); Calcium 9.5 mg/dL (8.4-10.2); Carbon Dioxide 25 mmol/L (22-30); Chloride 109 mmol/L (98-107); Estimated CRCL calculation 28 ml/min; Estimated Glomerular Filt Rate 32; Glucose 91 mg/dL (65-110); INR 1.1; Lactic Acid Reflex 0.7 mmol/L (0.7-2.0); Potassium 4.8 mmol/L (3.4-5.0); Prothrombin Time 14.2 Seconds (11.1-14.7); Sodium 140 mmol/L (137-145)
[2024-08-25 18:37] LABS: Partial Thromboplastin Time 26.7 Seconds (22.3-36.8)
[2024-08-25 19:23] LABS: Add Urine Microscopic? YES; Appearance Urine Cloudy (Clear); Bacteria Urine 4+ /hpf; Bilirubin Urine Negative (Negative); Blood Urine 3+ (Negative); Color Urine Yellow (Yellow); Glucose Urine UA Negative (Negative); Ketones Urine Negative (Negative); Leukocyte Esterase Ur 3+ LEU/UL (Negative); Need Manual Microscopic Reviewed; Nitrate Urine Positive (Negative); Protein Urine 1+ mg/dL (Negative); RBC Urine 51-100 /hpf (0-2); Specific Grav Ur 1.016 (1.001-1.035); Squamous Epithelial Cell Urine None Seen /hpf (Few); Urobilinogen Urine 0.2 mg/dL (<2.0); WBC Urine >100 /hpf (0-3); pH Urine 5.5 (5.0-9.0)
--- NOTE | 2024-08-25 19:29 | ED.FALL ---
HPI - Fall General Chief Complaint: Fall Stated Complaint: multiple falls Time Seen by Provider: 08/25/24 17:33 Source: patient and family Mode of arrival: ambulatory Limitations: no limitations History of Present Illness HPI Narrative: Patient is an 84-year-old male who presents the ED with multiple falls. at bedside assisted in providing information. Reports patient had a fall on Sunday in which he lost his balance and hit his head. Denied LOC. States he has been off balance since Sunday. Did have another fall last night, but did not injure himself. Patient is concerned he may have a urinary tract infection. He notes he was hospitalized a few months ago for acute renal failure and urinary retention. He had a Patrick catheter placed 2 months ago. Has not had it changed since then. States he is scheduled to undergo prostatic artery embolization with Dr. Mendez in 1 month. Denies any issues with his catheter recently. Denies hematuria, fevers, chest pain, shortness breath, neck or back pain, abdominal pain. Related Data Home Medications Medication Instructions Recorded Confirmed finasteride 5 mg tablet 5 mg PO DAILY 09/27/21 08/25/24 Allergies Allergy/AdvReac Type Severity Reaction Status Date / Time No Known Allergies Allergy Mild Verified 08/25/24 15:05 Review of Systems Review of Systems: All systems reviewed & are unremarkable except as noted in HPI. All systems reviewed & are unremarkable except as noted in HPI and below PMFSH Past Medical History Medical History BPH loc w urin obs/LUTS Elevated PSA Surgical History Surgical History No significant past surgical history Family History Family History Father Hypertension Family history of elevated blood lipids Family history of cardiovascular disease Social History Social History Smoking status: Never smoker Second hand tobacco smoke exposure: No Alcohol intake: never Substance use: never Substance use type: does not use Do You Feel Safe in your Home?: Yes Lack of Transportation: No Lack of Food: Never True Current Housing: I Have Housing Concerned About Future Housing: No Difficulty Paying Gas/Electric Bills: No Difficulty Paying for Meds: No Currently Unemployed: No Education: Associate Degree Difficulty w/ Childcare or Family Care: No Living arrangements: with family 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 HEAD: Normocephalic, atraumatic. RESPIRATORY: Airway patent, respirations nonlabored. Clear to auscultation bilaterally, no rales, rhonchi, wheezing. CARDIOVASCULAR: Regular rate and rhythm without murmurs, rubs, or gallops. ABDOMINAL: Soft, no tenderness throughout abdomen, nondistended. Normoactive BS. MUSCULOSKELETAL: Moves all extremities. No gross deformities. SKIN: Warm, dry, normal color. NEURO: A&O X3. [place]. Speech clear. Cranial nerves II-XII grossly intact. No ataxic movements. No focal deficits. PSYCHIATRIC: Appropriate mood and affect. Normal interaction. Course Vital Signs Vital signs: Vital Signs Temperature 98.1 F 08/25/24 15:58 Pulse Rate 106 H 08/25/24 15:58 Respiratory Rate 18 08/25/24 15:58 Blood Pressure 147/64 H 08/25/24 15:58 Pulse Oximetry 98 08/25/24 15:58 Oxygen Delivery Room Air 08/25/24 15:58 Temperature 98.6 F 08/25/24 20:31 Pulse Rate 90 08/25/24 20:31 Respiratory Rate 14 08/25/24 20:31 Blood Pressure 137/96 H 08/25/24 20:31 Pulse Oximetry 98 08/25/24 20:31 Oxygen
== END 2024-08-25 20:31 | disposition home or self-care (01) ==
PROVIDERS: Emergency Provider Physician Assistant; PCP Emergency Medicine
DX: N39.0 Urinary tract infection, site not specified (principal); N18.9 Chronic kidney disease, unspecified; R00.1 Bradycardia, unspecified; N40.1 Benign prostatic hyperplasia with lower urinary tract symptoms; W19.XXXA Unspecified fall, initial encounter; Z91.81 History of falling
CPT/HCPCS: 36415; 51702; 70450; 71046; 72125; 80053; 81001; 83605; 85025; 85610; 85730; 87040; 87086; 93005; 96365; 99284; J0696

== ENCOUNTER 2024-10-16 22:04 | Emergency (ER) | payer MEDICARE, SELFPAY ==
[2024-10-16 22:13] VITALS: BP 173/64; PULSE 57; RESP 20; TEMP 36.7; O2SAT 100
[2024-10-16 23:19] VITALS: BP 130/72; PULSE 79; TEMP 36.6; O2SAT 97
--- NOTE | 2024-10-16 23:26 | PC.NURSE ---
output is 600+ hasn't urinated since 11 am
--- NOTE | 2024-10-17 00:01 | ED.MALEGU ---
HPI - Male Genitourinary General Chief complaint: Urogenital-Male Stated complaint: unable to urinate Time Seen by Provider: 10/16/24 23:40 History of Present Illness HPI Narrative: 84-year-old male with a past medical history including chronic indwelling Patrick catheter presenting to the emergency department with urinary retention. He was at his urologist's office today and had his catheter removed without any trial of void. Catheter has been placed for over 4 months. He states that he went home and stated that he could not urinate but denies any abdominal pain. Started feeling some pressure in his lower pelvis. Denies any nausea, vomiting, hematuria or constipation. He did call his urologist office who recommended going to the ER for a new catheter. Presents to the emergency department for evaluation. No recent injuries illnesses otherwise. Patient otherwise appears well and has no complaints at this time aside from needing to urinate. Related Data Home Medications ?Medication ?Instructions ?Recorded ?Confirmed ?Last Taken ?Type finasteride 5 mg tablet 5 mg PO DAILY 09/27/21 08/29/24 06/08/24 History ferrous sulfate 325 mg (65 mg 325 mg PO DAILY 08/29/24 08/29/24 Unknown History iron) tablet Allergies Allergy/AdvReac Type Severity Reaction Status Date / Time No Known Allergies Allergy Mild Verified 10/16/24 22:21 Review of Systems Review of Systems: As reviewed above in HPI [facility] Past Medical History Medical History BPH loc w urin obs/LUTS Elevated PSA Surgical History Surgical History No significant past surgical history Family History Family History Father Hypertension Family history of elevated blood lipids Family history of cardiovascular disease Social History Social History Smoking status: Never smoker Second hand tobacco smoke exposure: No Alcohol intake: never Substance use: never Substance use type: does not use Do You Feel Safe in your Home?: Yes Lack of Transportation: No Lack of Food: Never True Current Housing: I Have Housing Concerned About Future Housing: No Difficulty Paying Gas/Electric Bills: No Difficulty Paying for Meds: No Currently Unemployed: No Education: Associate Degree Difficulty w/ Childcare or Family Care: No Living arrangements: with family 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 Mucous membranes moist. NECK: Supple. CHEST: [Clear to auscultation. No respiratory distress.] HEART: [Regular rate and rhythm]. No murmur heard. [Normal peripheral pulses.] ABDOMEN: [Soft, nondistended], [nontender], [No rigidity or guarding] EXTREMITIES: Normal range of motion. [No edema.] SKIN: Warm, dry, no rash. NEURO: [No focal deficits]. Alert and oriented [x3.] PSYCH: [Normal mood and affect.] Course Vital Signs Vital signs: Vital Signs Temperature 36.7 C 10/16/24 22:13 Pulse Rate 57 L 10/16/24 22:13 Respiratory Rate 20 10/16/24 22:13 Blood Pressure 173/64 H 10/16/24 22:13 Pulse Oximetry 100 10/16/24 22:13 Oxygen Delivery Room Air 10/16/24 22:13 Temperature 36.6 C 10/17/24 00:10 Pulse Rate 50 L 10/17/24 00:10 Respiratory Rate 16 10/17/24 00:10 Blood Pressure 153/67 H 10/17/24 00:10 Pulse Oximetry 98 10/17/24 00:10 Oxygen Delivery Room Air 10/16/24 22:13 MDM - Male Genitourinary MDM Narrative Medical decision making narrative: 84-year-old male presenting to the emergency department for urinary retention. He had his catheter removed at his urologist's office this afternoon but after went home he was not able to urinate anymore. Has mild suprapubic discomfort but no abdominal pain. Denies any fever, chills, back pain. He is otherwise well-appearing any acute distress and has a reassuring examination. Vital signs without any significant derangements, no fever hypoxia no tachycardia or tachypnea. No significant blood pressure concerns. Catheter was replaced and he had immediate drainage of approximately 600 cc of clear yellow urine. Relief of his discomfort immediate. No blood or clots were passed. At this time he is stable for discharge home given his resolution of urinary retention and informed him he needs to call his urologist in the morning and schedule follow-up appointment for continued care. There were given return precautions and stable for discharge home at this time without further intervention. Family and patient comfortable with plan of care going forward. Medical Records Attestation: I reviewed the patient's medical records. Discharge Plan Discharge Clinical Impression: Acute on chronic urinary retention, Status post insertion of Patrick catheter Patient Disposition: Home, Self-Care Condition: Stable Instructions: Antibiotic Form, Urinary Retention in Men (ED), Enlarged Prostate (BPH) (ED) Additional Instructions: We have replaced 2 Patrick catheter and you had good drainage at this time. Return with any new or worsening concerns at any time but please call Dr. Mendez/your urologist to follow-up on outpatient basis shortly Patient Language: Luxembourgish Prescriptions: No Action ferrous sulfate 325 mg (65 mg iron) tablet 325 mg PO DAILY ciprofloxacin HCl 500 mg tablet 500 mg PO Q12H Qty: 14 0RF finasteride 5 mg tablet 5 mg PO DAILY tamsulosin 0.4 mg capsule 0.4 mg PO QHS Qty: 90 0RF Follow-up/Referrals: UNKNOWN,DOCTOR [Primary Care Provider] - Time of Disposition: 00:01
[2024-10-17 00:10] VITALS: BP 153/67; PULSE 50; RESP 16; TEMP 36.6; O2SAT 98
== END 2024-10-17 00:20 | disposition home or self-care (01) ==
PROVIDERS: Emergency Provider Student in an Organized Health Care Education/Training Program
DX: N40.1 Benign prostatic hyperplasia with lower urinary tract symptoms (principal); R33.8 Other retention of urine
CPT/HCPCS: 51702; 99283

== ENCOUNTER 2024-12-10 14:35 | Outpatient (CLI) | payer MEDICARE, SELFPAY ==
--- NOTE | ~2024-12-10 | CT_ITS ---
EXAMINATION: CT abdomen pelvis wo con DATE: 12/10/2024 14:55 INDICATION: Kidney stones TECHNIQUE: Computed tomography (CT) of the abdomen and pelvis was performed without intravenous contr ast. Automated exposure control and iterative reconstruction technique were employed. The dose-length product was 193.19 mGy-cm. COMPARISON: 06/12/2024 FINDINGS: There are few small calcified nodules at the bilateral lower lungs consistent with old granulomatous disease. Heart size normal. Atherosclerotic coronary artery calcifications and aortic valve calcifica tion. No pericardial or pleural effusion. Mild left gynecomastia. Again seen are a few hepatic cysts the largest measuring up to 6 cm. Gallbladder spleen, pancreas and left adrenal gland are normal. Unc hanged 2.6 cm low-attenuation right adrenal adenoma. Mild bilateral renal cortical atrophy unchanged severe bilateral hydroureteronephrosis which extends to the bladder without evident obstructing stone or mass. There are nonobstructing stones at the lower poles of both kidneys measuring 13 mm on the l eft and 2 mm on the right. There are multiple stones in the dependent bladder measuring up to 1.4 cm. Prostatomegaly measuring 6.4 x 5.9 cm. There are few scattered clonic diverticula without adjacent i nflammatory change to suggest appendicitis. Small bowel and appendix are normal. Small fat-containing umbilical hernia. No free intraperitoneal gas or fluid. No pathologically enlarged abdominal or pelv ic lymphadenopathy. Mild thoracolumbar dextrocurvature with severe spondylosis. Chronic mild anterior wedging of a few lower thoracic vertebral bodies. IMPRESSION: 1. Mild bilateral renal cortical atrophy with persistent severe bilateral hydroureteronephrosis exten ding to the bladder likely related to chronic outlet obstruction from the enlarged prostate. 2. Nonobstructing bilateral nephrolithiasis and a few stones in the bladder. Reviewed, dictated and finalized at location A. DERING CLERK IMPRESSION: 1. Mild bilateral renal cortical atrophy with persistent severe bilateral hydro ureteronephrosis extending to the bladder likely related to chronic outlet obst ruction from the enlarged prostate. 2. Nonobstructing bilateral nephrolithiasis and a few stones in the bladder.
--- NOTE | ~2024-12-10 | XR_ITS ---
EXAMINATION: XR abdomen/kub 1V DATE: 12/10/2024 14:59 INDICATION: Kidney stones TECHNIQUE: A supine view of the abdomen on 2 radiographs was obtained. COMPARISON: CT dated 12/10/2024 FINDINGS: Small amount of gas and moderate amount of stool scattered throughout the bowels. The bladder stones bilateral renal stone seen on CT are unable to be distinguished on the plain radiographs likely due t o relatively low density. Lung bases are clear. Heart size normal. Mild thoracolumbar dextrocurvature with severe spondylosis. IMPRESSION: 1. The bladder and bilateral renal stone seen on prior CT are unable to be distinguished on the plain radiographs. Reviewed, dictated and finalized at location A. USTER ENGINEER IMPRESSION: 1. The bladder and bilateral renal stone seen on prior CT are unable to be dist inguished on the plain radiographs.
--- OUTSIDE RECORDS SUMMARY | 2024-12-10 15:18 | XMS_ITS | Referral Summary ---
Author Organization [address] Address [address] [place] [id number] Care Team Providers Care Vehicle Refinisher Name Role Phone Heriberto Delvalle MD Primary Care Provider [phone] Allergies No known active allergies Medications finasteride (PROSCAR) 5 mg tablet Take 1 tablet (5 mg total) by mouth daily 09/03/2023 Active simvastatin (ZOCOR) 40 mg tablet Take 1 tablet (40 mg total) by mouth daily 06/08/2023 Active Active Problems No known active problems Social History Tobacco Use Types Packs/Day Years Used Date Smoking Tobacco: Never Smokeless Tobacco: Never Tobacco Cessation:Counseling Given: Yes Personal Safety Answer Date Recorded Getting School Help Needed Not on file 01/05 Sex and Gender Information Value Date Recorded Sex Assigned at Not on file 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 Gender Identity Not on file Sexual Orientation Not on file Last Filed Vital Signs Vital Sign Reading Time Taken Comments Blood Pressure 110/60 09/06/2023 10:56 AM CDT Pulse 50 09/06/2023 10:56 AM CDT Temperature 36.6 C (97.8 F) 09/06/2023 10:56 AM CDT Respiratory Rate 19 09/06/2023 10:56 AM CDT Oxygen Saturation 99% 09/06/2023 10:56 AM CDT Inhaled Oxygen Concentration - - Weight 73.5 kg (162 lb) 09/06/2023 10:56 AM CDT Height 170.2 cm (5' 7 ) 09/06/2023 10:56 AM CDT Body Mass Index 25.37 09/06/2023 10:56 AM CDT Plan of Treatment Not on file Insurance T MEDICARE Care Teams Vehicle Refinisher Relationship Specialty Start Date End Date Heriberto Delvalle MD [address] [place] [address] DR EPPS [address] [place] [id number] PCP - General Family Medicine 09/06/23
--- OUTSIDE RECORDS SUMMARY | 2024-12-10 15:18 | XMS_ITS | Clinical Summary ---
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 Gender Identity Not on file Sexual Orientation Not on file Obstetrics History Last Filed Vital Signs Vital Sign Reading [...] 09/06/2023 10:56 AM CDT Plan of Treatment Health Maintenance Due Date Last Done Comments Depression Screening 1941 Fall Risk Assessment 1941 DTaP/Tdap/Td Vaccine (1 - Tdap) 1952 Hepatitis B Screening 1959 Zoster Vaccine (1 of 2) 1991 Well Visit 65+ 2006 Pneumococcal vaccine 65+ (2 of 2 - PPSV23 or PCV20) 12/10/2018 12/10/2017 Covid-19 Vaccine (3 - season) 2024, 01/02/2021 Influenza Vaccine (#1) 2024 , 09/27/2021, 08/22/2018 Insurance [employer] MEDICARE Care Teams Pallet Rectifier Relationship Specialty Start Date End Date Heriberto Delvalle MD [address] [facility] [address] EPPS [address] [place] [id number] PCP - General Family Medicine 09/06/23
== END 2024-12-10 14:36 | disposition home or self-care (01) ==
PROVIDERS: Visit Provider Nurse Practitioner Family
DX: N20.0 Calculus of kidney (principal); N21.0 Calculus in bladder; N26.1 Atrophy of kidney (terminal)
CPT/HCPCS: 74018; 74176

== ENCOUNTER 2025-01-30 00:29 | Inpatient (IN) | payer MEDICARE, SELFPAY ==
[2025-01-30] VITALS (18 sets, daily range): BP systolic 116–171; BP diastolic 59–100; PULSE 60–104; RESP 14–19; TEMP 36.5–38.5; O2SAT 97–100; BMI 22.7
--- NOTE | ~2025-01-30 | CT_ITS ---
EXAMINATION: CT abdomen pelvis wo con DATE: 01/30/2025 02:14 INDICATION: Right flank pain. TECHNIQUE: Computed tomography (CT) of the abdomen and pelvis was performed without intravenous contr ast. Automated exposure control and iterative reconstruction technique were employed. The dose-length product was 399.47 mGy-cm. COMPARISON: CT abdomen and pelvis 12/10/2024, 06/12/2024 FINDINGS: The visualized portions of the lung bases demonstrate mild atelectasis. There is mild scarr ing in paraspinal right lower lobe. Calcified pulmonary nodules are consistent with old granulomatous disease. No pleural effusion. Cardiomegaly is noted. There are coronary artery calcifications. No pe ricardial effusion. There is bilateral gynecomastia. There are cysts in the liver measuring up to 5.4 cm. The gallbladder, spleen, pancreas, and left adrenal gland are normal. There is a 2.6 cm mass in right adrenal gland measuring low attenuation, consistent with an adenoma. There is severe right hydr onephrosis and hydroureter. There is a 3 mm stone at right ureterovesicular junction. There is a 10 m m stone in left kidney. There is severe left hydronephrosis and hydroureter. There is cortical thinni ng of left kidney. There is at least 8 stones in the bladder measuring up to 10 mm. The prostate is s everely enlarged. There is an umbilical hernia containing fat. There are no dilated loops of bowel. T he appendix is normal. There are no pathologically enlarged lymph nodes. There is no free intraperito ingrid fluid. There is severe thoracic and lumbar spondylosis. IMPRESSION: 1. Chronic severe bilateral hydronephrosis and hydroureter. 3 mm stone at right ureterovesicular junc tion. I called this result to Dr. Szymanski. 2. Nonobstructing left kidney stone. 3. Bladder stones. Reviewed, dictated and finalized at location A. IMPRESSION: 1. Chronic severe bilateral hydronephrosis and hydroureter. 3 mm stone at right ureterovesicular junction. I called this result to Dr. Szymanski. 2. Nonobstructing left kidney stone. 3. Bladder stones.
--- NOTE | ~2025-01-30 | XR_ITS ---
EXAMINATION: XR retrograde pyelogram BI DATE: 01/30/2025 13:33 INDICATION: Bilateral hydronephrosis TECHNIQUE: 7 fluoroscopic images of the abdomen and pelvis were obtained during procedure performed Ashley moreau. Radiologist was not present for the imaging or procedure. The amount of fluorosc opy time used during this procedure was 1.2 minutes. Total DAP was 0.85 mGym^2 COMPARISON: CT dated 01/30/2025 FINDINGS: Images demonstrate retrograde contrast injection and wire advancement into the bilateral ureters, bot h which are tortuous with moderate hydroureter. Contrast does not reach the renal pelvises with the m ore proximal collecting system is not evaluated. IMPRESSION: 1. Fluoroscopy utilized during bilateral retrograde pyelograms. See procedure note for further detail . Reviewed, dictated and finalized at location B. IMPRESSION: 1. Fluoroscopy utilized during bilateral retrograde pyelograms. See procedure n ote for further detail.
--- NOTE | ~2025-01-30 | CT_ITS ---
EXAMINATION: CT abdomen pelvis wo con DATE: 01/30/2025 10:38 INDICATION: Right ureteral stone. TECHNIQUE: Computed tomography (CT) of the abdomen and pelvis was performed without intravenous contr ast. Automated exposure control and iterative reconstruction technique were employed. The dose-length product was 188.88 mGy-cm. COMPARISON: CT abdomen pelvis 01/30/2025 at 2:11 AM FINDINGS: The visualized portions of lung bases demonstrate mild atelectasis. Calcified bilateral basilio g nodules are consistent with old granulomatous disease. No pleural effusion. Cardiomegaly is noted. No pericardial effusion. There are cysts in the liver measuring up to 5.1 cm. The gallbladder, spleen , pancreas, and left adrenal gland are normal. There is a 2.6 cm mass in the right adrenal gland jessica uring low attenuation, consistent with an adenoma. There is severe bilateral hydronephrosis and hydro ureter. There is a 4 mm stone at right ureterovesicular junction. There is cortical thinning of left kidney. There is a 10 mm stone in left kidney. There are multiple mobile stones in the bladder measur ing up to 10 mm. The prostate is severely enlarged. There are no dilated loops of bowel. The appendix is normal. There are no pathologically enlarged lymph nodes. There is no free intraperitoneal fluid. IMPRESSION: 1. 4 mm stone at right ureterovesicular junction. Chronic severe bilateral hydronephrosis and hydrour eter. 2. Nonobstructing left kidney stone. 3. Mobile bladder stones. Reviewed, dictated and finalized at location A. IMPRESSION: 1. 4 mm stone at right ureterovesicular junction. Chronic severe bilateral hydr onephrosis and hydroureter. 2. Nonobstructing left kidney stone. 3. Mobile bladder stones.
--- OUTSIDE RECORDS SUMMARY | 2025-01-30 00:32 | XMS_ITS | Referral Summary ---
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
--- OUTSIDE RECORDS SUMMARY | 2025-01-30 00:32 | XMS_ITS | Clinical Summary ---
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 [address] EPPS [address] [place] [id number] PCP - General Family Medicine 09/06/23
[2025-01-30] MEDS: ACETAMINOPHEN 500 MG TABLET 1000 MG PO (00:51)
[2025-01-30] MEDS: ONDANSETRON INJ 4 MG/2 ML VIAL IV PUSH (01:06)
[2025-01-30 01:10] LABS: Basophils Percent Auto 0.2 % (0.2-1.2); Eosinophils Absolute Auto 0.2 K/mm3 (0-0.3); Hematocrit 34.4 % (42.0-52.0); Hemoglobin 11.2 g/dL (14.0-18.0); Immature Granulocyte Absolute 0.01 K/mm3 (0.00-0.031); Immature Granulocyte Percent A 0.2 % (0-0.5); Lymphocytes Absolute Auto 0.63 K/mm3 (0.9-3.2); Lymphocytes Percent Auto 12.7 % (18.3-44.2); Mean Corpuscular HGB Conc 32.6 g/dl (32-36); Mean Corpuscular Hemoglobin 29.7 pg (26-34); Mean Corpuscular Volume 91.2 fl (80-100); Mean Platelet Volume 11.6 fl (7.4-10.4); Monocytes Absolute Auto 0.4 K/mm3 (0.1-0.6); Monocytes Percent Auto 8.8 % (2.6-8.5); Neutrophils Absolute Auto 3.7 K/mm3 (1.3-6.7); Neutrophils Percent Auto 75.1 % (45.5-73.1); Platelet Count Result 174 k/mm3 (150-375); Red Blood Count 3.77 M/mm3 (4.6-6.20); Red Cell Distribution Width 15.2 % (11.5-14.5)
--- NOTE | 2025-01-30 01:14 | ED.WEAKNESS ---
HPI - Weakness General Chief complaint: Weakness Stated complaint: uti Time Seen by Provider: 01/30/25 01:00 Source: patient and family Limitations: no limitations History of Present Illness HPI Narrative: Patient presents with concern for possible UTI. He has had increased weakness over the past 48hours. He has a history of recurrent UTIs while he had an indwelling santana in place for 7 months after a urologic procedure for prostate artery due to BPH. This was just removed 1.5 weeks ago. Urologist is Dr Mendez. At the time of removal of Santana he was on one last antibiotic. He denies any abdominal/groin pain. No chest pain/difficulty breathing. He has had chills, possibly a fever and has been nauseated and vomiting, non bloody emesis. No dysuria but cloudy and intermittent R sided flank/back pain. Lives with who has not been sick. LBM today; no diarrhea but he states slightly constipated. Related Data Home Medications ?Medication ?Instructions ?Recorded ?Confirmed ?Last Taken ?Type finasteride 5 mg tablet 5 mg PO DAILY 09/27/21 01/30/25 01/29/25 History ferrous sulfate 325 mg (65 mg 325 mg PO DAILY 08/29/24 01/30/25 01/29/25 History iron) tablet Allergies Allergy/AdvReac Type Severity Reaction Status Date / Time No Known Allergies Allergy Mild Verified 01/30/25 11:33 [facility] Past Medical History Medical History Urinary catheter insertion/adjustment/removal Hematuria Urinary tract infection Urinary retention LOU (acute kidney injury) Dysuria Urinary frequency Fracture of right scapular body Right shoulder pain Closed fracture of rib of right side with routine healing Screening for prostate cancer PVC (premature ventricular contraction) Psychosexual dysfunction with inhibited sexual excitement Cancer screening BPH loc w urin obs/LUTS Elevated PSA Surgical History Surgical History History of urologic surgery Family History Family History Father Hypertension Family history of elevated blood lipids Family history of cardiovascular disease Social History Social History (Updated 01/30/25 @ 21:23 by Kayleigh Szyamnski MD) Smoking status: Never smoker Second hand tobacco smoke exposure: No Alcohol intake: never Substance use: never Substance use type: does not use Do You Feel Safe in your Home?: Yes Lack of Transportation: No Lack of Food: Never True Current Housing: I Have Housing Concerned About Future Housing: No Difficulty Paying Gas/Electric Bills: No Difficulty Paying for Meds: No Currently Unemployed: No Education: Associate Degree Difficulty w/ Childcare or Family Care: No Living arrangements: with family Additional living arrangements comments: 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 HEAD: Normocephalic, atraumatic. EYES: Non injected, non icteric ENT: Nares clear, no rhinorrhea or epistaxis. NECK: Supple. CHEST: Speaking in full sentences. No respiratory distress. HEART: Regular rate and rhythm. . ABDOMEN: Soft, nondistended. No TTP throughout. /Back: R CVA tenderness. No L cva tenderness. There is cloudy urine at bedside in container. EXTREMITIES: Normal range of motion. No lower extremity edema. SKIN: Warm, dry, no rash. NEURO: No focal deficits. Alert and oriented x3. PSYCH: Normal mood and affect. Course Vital Signs Vital signs: Vital Signs Temperature 101.3 F H 01/30/25 00:37 Pulse Rate 85 01/30/25 00:37 Respiratory Rate 14 01/30/25 00:37 Blood Pressure 171/78 H 01/30/25 00:37 Pulse Oximetry 100 01/30/25 00:37 Oxygen Delivery Room Air 01/30/25 00:37 Temperature 97.9 F 01/30/25 20:01 Pulse Rate 104 H 01/30/25 20:01 Respiratory Rate 18 01/30/25 20:01 Blood Pressure 116/63 01/30/25 20:01 Pulse Oximetry 97 01/30/25 20:01 Oxygen Delivery Room Air 01/30/25 15:42 Oxygen Flow Rate 8 01/30/25 14:15 MDM - Weakness MDM Narrative Medical decision making narrative: Patient presents with c/f UTI. Hx of these over the past year in the setting of indwelling Santana catheter which was placed after a urologic surgery but was removed 1.[address] Mendez. In the emergency department he is febrile with a temperature of a 101.3? F with vital signs also notable for hypertension. He is given acetaminophen for fever as well as ondansetron for nausea and vomiting. Urine is concerning for urinary tract infection. Previous cultures are reviewed but all with no final growth. First dose ceftriaxone ordered. No leukocytosis. Normocytic anemia. Creatinine is abnormal but patient has ranged with wide variability and this is in range thus likely represents approximate baseline consistent with his CKD. As had been considering possible discharge, I am notified that patient had vomited again a few times in the interim although not for several hours while awaiting CT STat rad read. I then received a phone call from [facility] radiologist with an overread noting that there is an acute stone at the right UVJ. Given patient's co-morbidities and now strong concern for infected stone and need for urologic intervention, patient to be admitted. Discussed with urologist Dr Rodríguez who recommends NPO and admit to medicine. Discussed with Dr Sorto hospitalist information technology internship. Extensively discussed code status with patient and his . In consideration of likely outcomes given age/co-morbidities, patient and do confirm DNR status in the event of cardiopulmonary arrest. Will aggressive treat infection in the interim with possible source control. Has remained hemodynnamically stable w/o hypotension. No leukocytosis. Differential Diagnosis Differential diagnosis: Likely anemia, hypoglycemia, sepsis, dehydration and other (UTI, pyelo, kidney/ureteral stone) Lab Data Attestation: I reviewed the patient's lab results. 01/30/25 00:53 01/30/25 00:53 Labs: Lab Results 01/30/25 01/30/25 Range/Units 00:53 02:25 WBC 5.0 (4.5-10.0) K/mm3 RBC 3.77 L (4.6-6.20) M/mm3 Hgb 11.2 L (14.0-18.0) g/dL Hct 34.4 L (42.0-52.0) % MCV 91.2 (80-100) fl MCH 29.7 (26-34) pg MCHC 32.6 (32-36) g/dl RDW 15.2 H (11.5-14.5) % Plt Count 174 (150-375) k/mm3 MPV 11.6 H (7.4-10.4) fl Immature Gran % (Auto) 0.2 (0-0.5) % Neut % (Auto) 75.1 H (45.5-73.1) % Lymph % (Auto) 12.7 L (18.3-44.2) % [place] % (Auto) 8.8 H (2.6-8.5) % Eos % (Auto) 3.0 (0-4.4) % Baso % (Auto) 0.2 (0.2-1.2) % Lymph # (Auto) 0.63 L (0.9-3.2) K/mm3 [place] # (Auto) 0.4 (0.1-0.6) K/mm3 Eos # (Auto) 0.2 (0-0.3) K/mm3 Baso # (Auto) 0.0 (0.0-0.1) K/mm3 Abs Immat Gran (auto) 0.01 (0.00-0.031) K/mm3 Absolute Neuts (auto) 3.7 (1.3-6.7) K/mm3 Absolute Nucleated RBC 0.000 (0.0-0.012) K/mm3 Nucleated RBC % 0.0 (0.0-0.2) % Sodium 138 (137-145) mmol/L Potassium 4.7 (3.4-5.0) mmol/L Chloride 110 H (98-107) mmol/L Carbon Dioxide 18 L (22-30) mmol/L Anion Gap 10 (4-12) mmol/L BUN 59 H D (9-20) mg/dL Creatinine 2.47 H (0.7-1.3) mg/dL Estim Creat Clear Calc 19 ml/min Estimated GFR 25 L (59 - ) Glucose 134 H (65-110) mg/dL Calcium 9.4 (8.4-10.2) mg/dL Magnesium 1.9 (1.6-2.3) mg/dL Total Bilirubin 0.4 (0.2-1.3) mg/dL AST 24 (17-59) U/L ALT 17 (6-50) U/L Alkaline Phosphatase 100 (38-126) U/L Total Creatine Kinase 81 (55-170) U/L Total Protein 7.0 (6.3-8.2) g/dL Albumin 3.6 (3.5-5.1) g/dL Urine Color Yellow (Yellow) Urine Appearance Turbid H (Clear) Urine pH 5.5 (5.0-9.0) Ur Specific [place] 1.011 (1.001-1.035) Urine Protein 2+ H (Negative) mg/dL Urine Glucose (UA) Negative (Negative) mg/dL Urine Ketones Negative (Negative) mg/dL Ur Blood (Man) 3+ H (Negative) Urine Nitrate Negative (Negative) Urine Bilirubin Negative (Negative) Urine Urobilinogen 0.2 (<2.0) mg/dL Add Ur Microanalysis Reviewed Leukocyte Esterase Rfl 3+ H (Negative) BERNABE/UL Urine RBC 6-10 H (0-2) /hpf Urine WBC >100 H (0-3) /hpf Ur Squamous Epith Cells Occasional (Few) /hpf Urine Bacteria 4+ H /hpf Urine Casts >20 Influenza A (RT-PCR) Negative (Negative) Influenza B (RT-PCR) Negative (Negative) RSV (RT-PCR) Negative (Negative) SARS-CoV-2 RNA (RT-PCR) Negative (Negative) Imaging Data Radiologist's impression: CT Abd & Pelvis w/o contrast Stat Rad: Likely contrast evaluation. Nonobstructive calculus within the inferior pole of the left kidney measuring up to 9 mm. Multiple dependent calculi within the bladder diffuse bladder wall thickening with adjacent stranding. Findings can be seen with cystitis. Consider correlation with laboratory values. Moderate right and mild to moderate left renal hydronephrosis which may be due to reflux. Additional perinephric and periureteral stranding noted. Sequelae of ascending urinary tract infection is not excluded. 2.6 cm right adrenal lipid rich adenoma. ACR White paper guideliens (Wayne et al. JACR 2017; 14(8): 2126-7786) suggest no imaging follow-up is necessary. Prostatomegaly. No other acute findings. Impressions Abdomen/Pelvis CT 01/30/25 05:58 IMPRESSION: 1. Chronic severe bilateral hydronephrosis and hydroureter. 3 mm stone at right ureterovesicular junction. I called this result to Dr. Szymanski. 2. Nonobstructing left kidney stone. 3. Bladder stones. Discharge Plan Discharge Clinical Impression: UTI (urinary tract infection), Normocytic anemia, CKD (chronic kidney disease), Pyelonephritis, Adrenal adenoma, Bladder calculi, Bilateral hydronephrosis, Hydroureter, Calculus of ureterovesical junction (UVJ) Patient Disposition: Still a Patient Condition: Stable Time of Disposition: 05:57
[2025-01-30 01:24] LABS: Alanine Aminotransferase 17 U/L (6-50); Albumin Level 3.6 g/dL (3.5-5.1); Alkaline Phosphatase 100 U/L (38-126); Anion Gap 10 mmol/L (4-12); Aspartate Amino Transferase 24 U/L (17-59); Bilirubin,Total 0.4 mg/dL (0.2-1.3); Blood Urea Nitrogen 59 mg/dL (9-20); Calcium 9.4 mg/dL (8.4-10.2); Carbon Dioxide 18 mmol/L (22-30); Chloride 110 mmol/L (98-107); Creatine Kinase 81 U/L (55-170); Estimated CRCL calculation 19 ml/min; Estimated Glomerular Filt Rate 25; Glucose 134 mg/dL (65-110); Magnesium 1.9 mg/dL (1.6-2.3); Potassium 4.7 mmol/L (3.4-5.0); Sodium 138 mmol/L (137-145)
[2025-01-30] MEDS: SODIUM CHLORIDE 0.9% IV 1,000 ML 999 ML IV CONT (01:30)
--- OUTSIDE RECORDS SUMMARY | 2025-01-30 01:31 | XMS_ITS | Clinical Summary ---
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
--- OUTSIDE RECORDS SUMMARY | 2025-01-30 01:31 | XMS_ITS | Referral Summary ---
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
[2025-01-30 01:46] LABS: Influenza A QL RT-PCR Negative (Negative); Influenza B QL RT-PCR Negative (Negative); RSV RNA, RT-PCR Negative (Negative); SARS-CoV-2 RNA PCR Negative (Negative)
[2025-01-30 02:56] LABS: Add Urine Microscopic? YES; Appearance Urine Turbid (Clear); Bacteria Urine 4+ /hpf; Bilirubin Urine Negative (Negative); Blood Urine 3+ (Negative); Color Urine Yellow (Yellow); Glucose Urine UA Negative (Negative); Ketones Urine Negative (Negative); Leukocyte Esterase Ur 3+ LEU/UL (Negative); Need Manual Microscopic Reviewed; Nitrate Urine Negative (Negative); Non Pathogenic Casts >20; Protein Urine 2+ mg/dL (Negative); Specific Grav Ur 1.011 (1.001-1.035); Squamous Epithelial Cell Urine Occasional /hpf (Few); Urobilinogen Urine 0.2 mg/dL (<2.0); WBC Urine >100 /hpf (0-3); pH Urine 5.5 (5.0-9.0)
--- NOTE | 2025-01-30 09:24 | WPDURCON ---
Assessment and Plan Assessment and plan (1) Calculus of ureterovesical junction (UVJ): Code(s): N20.1 - Calculus of ureter Status: Acute Assessment and Plan: - 3mm, right UVJ (2) UTI (urinary tract infection): Code(s): N39.0 - Urinary tract infection, site not specified Status: Acute Assessment and Plan: - UA suspicious for UTI, present on admission (3) Stage 3b chronic kidney disease: Code(s): N18.32 - Chronic kidney disease, stage 3b Status: Chronic Assessment and Plan: - Stable - Baseline Cr 2-3 (4) Bladder calculi: Code(s): N21.0 - Calculus in bladder Status: Acute Assessment and Plan: - Numerous measuring up to 10mm (5) BPH loc w urin obs/LUTS: Code(s): N40.1 - Benign prostatic hyperplasia with lower urinary tract symptoms Status: Acute Assessment and Plan: - Complicated by chronic urinary retention issues - Managed with tamsulosin, finasteride - s/p PAE 09/2024 (6) Hydronephrosis: Code(s): N13.30 - Unspecified hydronephrosis Status: Acute Assessment and Plan: - Severe, chronic, stable Plan - Obtain STAT CT AP WO CON in the prone position to optimize right ureteral stone evaluation - Check bladder scan, r/o recurrent urinary retention; follow I&Os - Keep NPO pending image findings in case he needs intervention in the OR today - Agree with culture-directed UTI treatment - Patient is established with Dr. Mendez for outpatient urology management Urology Consult Note HPI Date Seen: 01/30/25 Requesting Physician: Derrell Kraus MD Primary Care Provider: Say Barber MD Consult Narrative Reason for consult: Right ureteral stone, pyelonephritis Narrative: Bird Staton is an 84 year old male well known to our practice with an extensive urological history of obstructive BPH, chronic urinary retention, frequent UTI, chronic bilateral hydronephrosis, s/p prostate artery embolization 09/2024, CKDIII-IV who presented to the ER overnight with sudden onset fever, nausea (t-max 101.3), vomiting. He reports feeling 'a little off' yesterday afternoon. Patient is comfortable on exam. Fever resolved after IV ceftriaxone and acetaminophen. He reports improved urinary stream following PAE, no longer a dribble. He had indwelling Patrick catheter removed 01/13/25, denies retention issues over the past couple weeks. He has been NPO overnight in case he needs OR intervention today. Labs reviewed: WBC 5, Hgb 11.2, Cr 2.5 (baseline Cr around 2-3) UA 3+ LE, 3+ blood, 6-10 RBC, >100 WBC Urine culture pending on IV ceftriaxone 01/30/25 CT AP WO CON significant for: - chronic, severe bilateral hydronephrosis - 2.6cm right adrenal gland mass consistent with adenoma - 3mm stone at right UJV - 10mm nonobstructing left renal stone - at least 8 bladder stones up to 10mm - severely enlarged prostate Review of Systems Constitutional: Constitutional: Reports as per HPI Cardiovascular: Cardiovascular: Denies chest pain Respiratory: Respiratory: Denies dyspnea Gastrointestinal: Gastrointestinal: Reports as per HPI Genitourinary: Genitourinary: Reports as per HPI [facility] Past Medical History Medical History (Updated 01/30/25 @ 09:42 by Nelli Toro APRN) Urinary catheter insertion/adjustment/removal Hematuria Urinary tract infection Urinary retention LOU (acute kidney injury) Dysuria Urinary frequency Fracture of right scapular body Right shoulder pain Closed fracture of rib of right side with routine healing Screening for prostate cancer PVC (premature ventricular contraction) Psychosexual dysfunction with inhibited sexual excitement Cancer screening BPH loc w urin obs/LUTS Elevated PSA Surgical History Surgical History No significant past surgical history Family History Family History Father Hypertension Family history of elevated blood lipids Family history of cardiovascular disease Social History Social History Smoking status: Never smoker Second hand tobacco smoke exposure: No Alcohol intake: never Substance use: never Substance use type: does not use Do You Feel Safe in your Home?: Yes Lack of Transportation: No Lack of Food: Never True Current Housing: I Have Housing Concerned About Future Housing: No Difficulty Paying Gas/Electric Bills: No Difficulty Paying for Meds: No Currently Unemployed: No Education: Associate Degree Difficulty w/ Childcare or Family Care: No Living arrangements: with family 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 Gender identity (if verbalized by the patient): Male Spiritual care concerns: No Meds Home Medications and Allergies Home Medications ?Medication ?Instructions ?Recorded ?Confirmed ?Type finasteride 5 mg tablet 5 mg PO DAILY 09/27/21 12/03/24 History ferrous sulfate 325 mg (65 mg 325 mg PO DAILY 08/29/24 12/03/24 History iron) tablet tamsulosin 0.4 mg capsule 0.4 mg PO QHS #90 caps 12/03/24 Rx acetaminophen 500 mg capsule 1,000 mg (2 x 500 mg) PO Q6H PRN 01/30/25 Rx pain #30 caps cefdinir 300 mg capsule 300 mg PO Q12H 12 days #24 caps 01/30/25 Rx ondansetron 4 mg disintegrating 4 mg PO Q8H PRN nausea and 01/30/25 Rx tablet vomiting #7 tabs Allergies Allergy/AdvReac Type Severity Reaction Status Date / Time No Known Allergies Allergy Mild Verified 01/30/25 00:31 Vital Signs Vital Signs - 24 hr 01/30/25 00:37 01/30/25 02:50 01/30/25 03:18 Temperature 101.3 F H 99.8 F H Pulse Rate 85 78 Respiratory Rate 14 14 Blood Pressure 171/78 H 126/63 Pulse Oximetry 100 100 Oxygen Delivery Room Air 01/30/25 05:21 01/30/25 06:52 01/30/25 07:40 Temperature 97.7 F Pulse Rate 73 66 Respiratory Rate 14 14 Blood Pressure 123/59 L 153/68 H Pulse Oximetry 98 100 Oxygen Delivery Exam Const: General: comfortable and no acute distress HENMT: Face/Nose/Sinus: Normal nares present Eyes: General: appearance normal, both eyes and all related structures Resp: Effort & Inspection: normal respiratory effort GI: Inspection: non-distended : Male General Exam: Yes tenderness Skin: General skin exam: normal color Neuro: Speech: normal speech Psych: Speech and movement: Normal speech and movement present Affect: normal affect Results Labs 01/30/25 00:53 01/30/25 00:53 Labs: Short CBC 01/30/25 Range/Units 00:53 WBC 5.0 (4.5-10.0) K/mm3 Hgb 11.2 L (14.0-18.0) g/dL Hct 34.4 L (42.0-52.0) % Plt Count 174 (150-375) k/mm3 BMP 01/30/25 00:53 Sodium 138 Potassium 4.7 Chloride 110 H Carbon Dioxide 18 L BUN 59 H D Creatinine 2.47 H Glucose 134 H Calcium 9.4 Cardiac Enzymes 01/30/25 Range/Units 00:53 Total Creatine Kinase 81 (55-170) U/L Liver Function 01/30/25 Range/Units 00:53 Total Bilirubin 0.4 (0.2-1.3) mg/dL AST 24 (17-59) U/L ALT 17 (6-50) U/L Alkaline Phosphatase 100 (38-126) U/L Albumin 3.6 (3.5-5.1) g/dL Urine 01/30/25 Range/Units 02:25 Urine Color Yellow (Yellow) Urine Appearance Turbid H (Clear) Urine pH 5.5 (5.0-9.0) Ur Specific [place] 1.011 (1.001-1.035) Urine Protein 2+ H (Negative) mg/dL Urine Glucose (UA) Negative (Negative) mg/dL
[2025-01-30] MEDS: LACTATED RINGERS 1,000 ML 30 ML IV CONT ×2 (11:15→14:40)
--- NOTE | 2025-01-30 11:48 | P.HP_ITS ---
H&P: HPI History of Present Illness Date/Time: 01/30/25 11:48 Chief Complaint: Generalized weakness/fever/nausea Narrative: Patient was an 84-year-old male who presented to the emergency department with complaints generalized weakness, sudden onset fever, nausea and vomiting. Patient reports past medical history BPH, urological obstruction with chronic indwelling Patrick catheter, chronic bilateral hydronephrosis. Initial findings in the emergency department patient with temperature 101? and UA suspicious for urinary tract infection. CT abdomen showed chronic bilateral hydronephrosis, 2.6 adrenal gland, a 3 mm stone at the right UJV, 10 mm nonobstructing left renal stone severely enlarged prostate, and least 8 bladder stones up to 10 mm. Patient currently denying any chest pain, shortness a breath, dizziness no further nausea or vomiting. Review of Systems Review of Systems: All systems reviewed & are unremarkable except as noted in HPI and below PMFSH Past Medical History Medical History Urinary catheter insertion/adjustment/removal Hematuria Urinary tract infection Urinary retention LOU (acute kidney injury) Dysuria Urinary frequency Fracture of right scapular body Right shoulder pain Closed fracture of rib of right side with routine healing Screening for prostate cancer PVC (premature ventricular contraction) Psychosexual dysfunction with inhibited sexual excitement Cancer screening BPH loc w urin obs/LUTS Elevated PSA Surgical History Surgical History No significant past surgical history Family History Family History Father Hypertension Family history of elevated blood lipids Family history of cardiovascular disease Social History Social History Smoking status: Never smoker Second hand tobacco smoke exposure: No Alcohol intake: never Substance use: never Substance use type: does not use Do You Feel Safe in your Home?: Yes Lack of Transportation: No Lack of Food: Never True Current Housing: I Have Housing Concerned About Future Housing: No Difficulty Paying Gas/Electric Bills: No Difficulty Paying for Meds: No Currently Unemployed: No Education: Associate Degree Difficulty w/ Childcare or Family Care: No Living arrangements: with family 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 Gender identity (if verbalized by the patient): Male Spiritual care concerns: No Meds Home Medications and Allergies Home Medications ?Medication ?Instructions ?Recorded ?Confirmed ?Type finasteride 5 mg tablet 5 mg PO DAILY 09/27/21 01/30/25 History ferrous sulfate 325 mg (65 mg 325 mg PO DAILY 08/29/24 01/30/25 History iron) tablet tamsulosin 0.4 mg capsule 0.4 mg PO QHS #90 caps 12/03/24 01/30/25 Rx acetaminophen 500 mg capsule 1,000 mg (2 x 500 mg) PO Q6H PRN 01/30/25 Rx pain #30 caps cefdinir 300 mg capsule 300 mg PO Q12H 12 days #24 caps 01/30/25 Rx ondansetron 4 mg disintegrating 4 mg PO Q8H PRN nausea and 01/30/25 Rx tablet vomiting #7 tabs Allergies Allergy/AdvReac Type Severity Reaction Status Date / Time No Known Allergies Allergy Mild Verified 01/30/25 11:33 Vital Signs Vital Signs - 24 hr 01/30/25 00:37 01/30/25 02:50 01/30/25 03:18 Temperature 101.3 F H 99.8 F H Pulse Rate 85 78 Respiratory Rate 14 14 Blood Pressure 171/78 H 126/63 Pulse Oximetry 100 100 Oxygen Delivery Room Air 01/30/25 05:21 01/30/25 06:52 01/30/25 07:40 Temperature 97.7 F Pulse Rate 73 66 Respiratory Rate 14 14 Blood Pressure 123/59 L 153/68 H Pulse Oximetry 98 100 Oxygen Delivery Exam Const: General: comfortable and no acute distress HENMT: Mouth: Yes moist mucous membranes Eyes: General: appearance normal, both eyes and all related structures Neck: Neck: supple Resp: Effort & Inspection: normal respiratory effort Auscultation: clear to auscultation bilaterally Cardio: Rate: regular rate Rhythm: regular rhythm GI: GI Palp: Yes Soft to palpation Auscultation: normal bowel sounds Urinary Catheter: Urinary Catheter: patent and draining Skin: General skin exam: normal color and no rashes or lesions noted Neuro: Speech: normal speech Sensory Exam: normal sensation Extrem: General: normal to inspection Psych: Mental Status: mental status grossly normal Affect: normal affect H&P: Results Labs Labs: Short CBC 01/30/25 Range/Units 00:53 WBC 5.0 (4.5-10.0) K/mm3 Hgb 11.2 L (14.0-18.0) g/dL Hct 34.4 L (42.0-52.0) % Plt Count 174 (150-375) k/mm3 BMP 01/30/25 00:53 Sodium 138 Potassium 4.7 Chloride 110 H Carbon Dioxide 18 L BUN 59 H D Creatinine 2.47 H Glucose 134 H Calcium 9.4 Cardiac Enzymes 01/30/25 Range/Units 00:53 Total Creatine Kinase 81 (55-170) U/L Liver Function 01/30/25 Range/Units 00:53 Total Bilirubin 0.4 (0.2-1.3) mg/dL AST 24 (17-59) U/L ALT 17 (6-50) U/L Alkaline Phosphatase 100 (38-126) U/L Albumin 3.6 (3.5-5.1) g/dL Urine 01/30/25 Range/Units 02:25 Urine Color Yellow (Yellow) Urine Appearance Turbid H (Clear) Urine pH 5.5 (5.0-9.0) Ur Specific Alpha 1.011 (1.001-1.035) Urine Protein 2+ H (Negative) mg/dL Urine Glucose (UA) Negative (Negative) mg/dL Imaging CT scan - abdomen: Radiologist's impression: EXAMINATION: CT abdomen pelvis wo con DATE: 01/30/2025 02:14 INDICATION: Right flank pain. TECHNIQUE: Computed tomography (CT) of the abdomen and pelvis was performed without intravenous contrast. Automated exposure control and iterative reconstruction technique were employed. The dose-length product was 399.47 mGy- cm. COMPARISON: CT abdomen and pelvis 12/10/2024, 06/12/2024 FINDINGS: The visualized portions of the lung bases demonstrate mild atelectasis. There is mild scarring in paraspinal right lower lobe. Calcified pulmonary nodules are consistent with old granulomatous disease. No pleural effusion. Cardiomegaly is noted. There are coronary artery calcifications. No pericardial effusion. There is bilateral gynecomastia. There are cysts in the liver measuring up to 5.4 cm. The gallbladder, spleen, pancreas, and left adrenal gland are normal. There is a 2.6 cm mass in right adrenal gland measuring low attenuation, consistent with an adenoma. There is severe right hydronephrosis and hydroureter. There is a 3 mm stone at right ureterovesicular junction. There is a 10 mm stone in left kidney. There is severe left hydronephrosis and hydroureter. There is cortical thinning of left kidney. There is at least 8 stones in the bladder measuring up to 10 mm. The prostate is sever wesley enlarged. There is an umbilical hernia containing fat. There are no dilated loops of bowel. The appendix is normal. There are no pathologically enlarged lymph nodes. There is no free intraperitoneal fluid. There is severe thoracic and lumbar spondylosis. IMPRESSION: 1. Chronic severe bilateral hydronephrosis and hydroureter. 3 mm stone at right ureterovesicular junction. I called this result to Dr. Szymanski. 2. Nonobstructing left kidney stone. 3. Bladder stones. Assessment and Plan Assessment and plan (1) Calculus of ureterovesical junction (UVJ): Code(s): N20.1 - Calculus of ureter Status: Acute Assessment and Plan: Patient with significant urological history and chronic indwelling Patrick catheter follows with Dr. Mendez outpatient, last with a catheter exchange 01/13/2025 * Urology consulted * CTA with 3mm UJV * NPO for possible intervention after follow-up CT * Follow-up CT ABD * Pain cuntrol * IV fluids * Antiemetics * Chronic indwelling Patrick catheter placed (2) Bilateral hydronephrosis: Code(s): N13.30 - Unspecified hydronephrosis Status: Acute Assessment and Plan: SEE ABOVE #1 (3) Pyelonephritis: Code(s): N12 - Tubulo-interstitial nephritis, not specified as acute or chronic Status: Acute Assessment and Plan: * Max fever 101.1 * Ceftriaxone * IV fluids * Antipyretics * Normal WBC * monitor for signs of sepsis (4) UTI (urinary tract infection): Code(s): N39.0 - Urinary tract infection, site not specified Status: Acute Assessment and Plan: * UA 3+ LE, 3+ blood, 6-10 RBC, >100 WBC * Rocephin pending cultures (5) Stage 3b chronic kidney disease: Code(s): N18.32 - Chronic kidney disease, stage 3b Status: Chronic Assessment and Plan: * Likely secondary to above * Baseline in the 2.00 * 2.47 baseline * IV fluids * Avoid nephrotoxic drugs. * Monitor antihypertensive drug therapy. * Avoid NSAIDs. * Routine CMP monitoring GFR. * Monitor electrolytes especially potassium. * Antibiotic doses depending on creatinine clearance. (6) BPH loc w urin obs/LUTS: Code(s): N40.1 - Benign prostatic hyperplasia with lower urinary tract symptoms Status: Acute Assessment and Plan: * Resume flomax * Indwelling Patrick catheter exchange 01/13/2025 (7) Iron (Fe) deficiency anemia: Code(s): D50.9 - Iron deficiency anemia, unspecified Status: Acute Assessment and Plan: * Hemoglobin 11.2 * Resume patient's ferrous sulfate * Trend * Transfuse PRBCs if hemoglobin <7.0 Plan Code status: Full code per patient DVT prophylaxis: SCD's Stress ulcer prophylaxis: Protonix 40 daily PT/OT notes: Pending Disposition: Patient admitted to the medical unit and went for surgical i ntervention 01/30/2025 with urology. Continue IV ABX pending cultures may need PT/OT prior to discharge Quality VTE Prophylaxis VTE prophylaxis: mechanical ordered -Patient's previous records reviewed on admission -ER notes reviewed in detail on admission -discussed all findings and current treatment plan with patient/Family/POA -Consultations reviewed for recommendations -Patient's disposition for safe discharge discussed with patient case manager Dictation performed by [employer] direct speech recognition software, therefore net development manager variants and typographical errors may occur. Hospitalist MIPS Advance Care Plan I have confirmed that the patient's Advanced Care Plan is present, code status is documented, or surrogate decision maker is listed in patient medical record.: Yes Medication Reconciliation I have utilized all available resources to obtain, update and review the patients current medications (includes all prescriptions, OTC, herbals, cannabis , and nutritional supplements).: Yes The patient is not eligible for med reconciliation; the patient is in a emergent medical situation where delaying treatment would jeopardize the patients health.: No
--- NOTE | 2025-01-30 11:49 | WPDHPUPDATE1 ---
History and Physical Update Update Date/Time: 01/30/25 11:49 History and Physical has been reviewed, including an updated exam of the patient. There are NO changes in the patient's condition. Risks, benefits, and alternatives have been discussed and questions answered. Patient agrees to proceed with procedure. Proceed with cystoscopy, possible ureteroscopy with right stone extraction, bilateral stent placement possible laser of bladder stones
--- NOTE | 2025-01-30 12:50 | P.PNAN_ITS ---
Anes - Initial Pre Proc Eval Procedure: Operation Date: 01/30/25 16:30 Proposed Procedures p Cystoscopy, Right Ureteroscopy, Possible Right Retrograde Pyelogram, Possible Right Stone Extraction, Possible Right Stent Placement, Possible Holmium Laser Procedure - Chris Rodríguez MD Date/Time: 01/30/25 12:50 Surgeon: Derrell Kraus MD Pre Op Diagnosis: pyelonephritis,stone @ UVJ infected stone,CKD Patient Data Age: 84 Gender: M Height: 1.7 m Weight: 65.9 kg Last Vital Signs Temp 37.6 C H 01/30/25 11:15 Pulse 60 01/30/25 11:15 Resp 14 01/30/25 11:15 BP 154/69 H 01/30/25 11:15 Pulse Ox 98 01/30/25 11:15 O2 Del Method Room Air 01/30/25 00:37 Allergies Allergy/AdvReac Type Severity Reaction Status Date / Time No Known Allergies Allergy Mild Verified 01/30/25 11:33 Home Medications ?Medication ?Instructions ?Recorded ?Confirmed ?Type finasteride 5 mg tablet 5 mg PO DAILY 09/27/21 01/30/25 History ferrous sulfate 325 mg (65 mg 325 mg PO DAILY 08/29/24 01/30/25 History iron) tablet tamsulosin 0.4 mg capsule 0.4 mg PO QHS #90 caps 12/03/24 01/30/25 Rx acetaminophen 500 mg capsule 1,000 mg (2 x 500 mg) PO Q6H PRN 01/30/25 Rx pain #30 caps cefdinir 300 mg capsule 300 mg PO Q12H 12 days #24 caps 01/30/25 Rx ondansetron 4 mg disintegrating 4 mg PO Q8H PRN nausea and 01/30/25 Rx tablet vomiting #7 tabs Laboratory Tests 01/30/25 01/30/25 00:53 02:25 WBC 5.0 K/mm3 (4.5-10.0) RBC 3.77 L M/mm3 (4.6-6.20) Hgb 11.2 L g/dL (14.0-18.0) Hct 34.4 L % (42.0-52.0) MCV 91.2 fl (80-100) MCH 29.7 pg (26-34) MCHC 32.6 g/dl (32-36) RDW 15.2 H % (11.5-14.5) Plt Count 174 k/mm3 (150-375) MPV 11.6 H fl (7.4-10.4) Immature Gran % (Auto) 0.2 % (0-0.5) Neut % (Auto) 75.1 H % (45.5-73.1) Lymph % (Auto) 12.7 L % (18.3-44.2) Mcnairy % (Auto) 8.8 H % (2.6-8.5) Eos % (Auto) 3.0 % (0-4.4) Baso % (Auto) 0.2 % (0.2-1.2) Lymph # (Auto) 0.63 L K/mm3 (0.9-3.2) Mcnairy # (Auto) 0.4 K/mm3 (0.1-0.6) Eos # (Auto) 0.2 K/mm3 (0-0.3) Baso # (Auto) 0.0 K/mm3 (0.0-0.1) Abs Immat Gran (auto) 0.01 K/mm3 (0.00-0.031) Absolute Neuts (auto) 3.7 K/mm3 (1.3-6.7) Absolute Nucleated RBC 0.000 K/mm3 (0.0-0.012) Nucleated RBC % 0.0 % (0.0-0.2) Sodium 138 mmol/L (137-145) Potassium 4.7 mmol/L (3.4-5.0) Chloride 110 H mmol/L (98-107) Carbon Dioxide 18 L mmol/L (22-30) Anion Gap 10 mmol/L (4-12) BUN 59 H D mg/dL (9-20) Creatinine 2.47 H mg/dL (0.7-1.3) Estim Creat Clear Calc 19 ml/min Estimated GFR 25 L (59 - ) Glucose 134 H mg/dL (65-110) Calcium 9.4 mg/dL (8.4-10.2) Magnesium 1.9 mg/dL (1.6-2.3) Total Bilirubin 0.4 mg/dL (0.2-1.3) AST 24 U/L (17-59) ALT 17 U/L (6-50) Alkaline Phosphatase 100 U/L (38-126) Total Creatine Kinase 81 U/L (55-170) Total Protein 7.0 g/dL (6.3-8.2) Albumin 3.6 g/dL (3.5-5.1) Urine Color Yellow (Yellow) Urine Appearance Turbid H (Clear) Urine pH 5.5 (5.0-9.0) Ur Specific Speculator 1.011 (1.001-1.035) Urine Protein 2+ H mg/dL (Negative) Urine Glucose (UA) Negative mg/dL (Negative) Urine Ketones Negative mg/dL (Negative) Ur Blood (Man) 3+ H (Negative) Urine Nitrate Negative (Negative) Urine Bilirubin Negative (Negative) Urine Urobilinogen 0.2 mg/dL (<2.0) Add Ur Microanalysis Reviewed Leukocyte Esterase Rfl 3+ H BERNABE/UL (Negative) Urine RBC 6-10 H /hpf (0-2) Urine WBC >100 H /hpf (0-3) Ur Squamous Epith Cells Occasional /hpf (Few) Urine Bacteria 4+ H /hpf Urine Casts >20 Influenza A (RT-PCR) Negative (Negative) Influenza B (RT-PCR) Negative (Negative) RSV (RT-PCR) Negative (Negative) SARS-CoV-2 RNA (RT-PCR) Negative (Negative) Patient hx anesthesia problems: none Family hx anesthesia problems: none Results Review: All pre-operative results and documents have been reviewed as part of the pre- operative evaluation. [facility] Past Medical History Medical History Urinary catheter insertion/adjustment/removal Hematuria Urinary tract infection Urinary retention LOU (acute kidney injury) Dysuria Urinary frequency Fracture of right scapular body Right shoulder pain Closed fracture of rib of right side with routine healing Screening for prostate cancer PVC (premature ventricular contraction) Psychosexual dysfunction with inhibited sexual excitement Cancer screening BPH loc w urin obs/LUTS Elevated PSA Surgical History Surgical History No significant past surgical history Family History Family History Father Hypertension Family history of elevated blood lipids Family history of cardiovascular disease Social History Social History Smoking status: Never smoker Second hand tobacco smoke exposure: No Alcohol intake: never Substance use: never Substance use type: does not use Do You Feel Safe in your Home?: Yes Lack of Transportation: No Lack of Food: Never True Current Housing: I Have Housing Concerned About Future Housing: No Difficulty Paying Gas/Electric Bills: No Difficulty Paying for Meds: No Currently Unemployed: No Education: Associate Degree Difficulty w/ Childcare or Family Care: No Living arrangements: with family 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 Informed Consent: The patient's anesthetic plan and its attendant risks and benefits were discussed with the patient/family/POA. Questions were solicited and answers provided to the satisfaction of the patient/family/POA.
[2025-01-30] MEDS: ceFAZolin SODIUM 1 GM VIAL IV PUSH (12:52)
[2025-01-30] MEDS: LIDOCAINE 2% GEL UROJET 10 ML PKG MUCOUS MEM (13:05)
--- NOTE | 2025-01-30 13:45 | W.PM.PROC2 ---
Procedure Note - Detailed Date of Procedure 01/30/25 Pre-op Diagnosis Right UVJ calculus with chronic bilateral hydroureter, bladder stones Post-op Diagnosis Same Procedure Performed Cystoscopy, bilateral retrogrades, right ureteroscopy distal, holmium laser of bladder calculi, Patrick catheter placement Surgeon Chris Rodríguez MD Anesthesia General Findings With multiple bladder calculi, extremely tortuous ureters with inability to place guidewires or stents, Description of Procedure Patient was taken to the operative suite correctly identified. Once anesthesia was obtained he was placed in dorsal lithotomy position and prepped and draped usual sterile fashion. Twenty-two Latvian scope was inserted in the bladder. He does have some lateral lobe hypertrophy. No significant median lobe. Upon entering the bladder numerous bladder calculi were seen along the floor. There were no tumors noted be does have significant trabeculation. The right ureteral orifice was visualized. An attempt was made to pass a wire and angled guidewire up into the kidney this was unsuccessful. I then placed a rigid ureteral scope into the orifice. The small calcification sort of fragmented and was cleared at the UVJ. Pyelogram was performed which revealed extremely tortuous distal ureter which was dilated. I was again unable to manipulate any wires up into the kidney. Since this has been a chronic issue I decided to terminate it. A similar procedure was done on the left with a retrograde pyelogram attempted will placement of wire but again significant tortuosity of the ureter. The bladder stones were then lasered using the 500 micron fiber and retrieved. Sixteen Latvian Patrick was placed with 10 cc in the balloon. Plan is to have the Patrick catheter removed in the next day or 2 for voiding trial and postvoid residual checks. Unfortunately if his creatinine worsens or develops symptoms in his flank he may need nephrostomy tubes with antegrade stent attempts. This completes dictation. Please send a copy of op to my office Estimated Blood Loss 0 Drains Yes Packing No Pathology Yes Complications No immediate complications Condition Stable Disposition PACU
[2025-01-30] MEDS: LACTATED RINGERS 1,000 ML 100 ML IV CONT (17:57)
[2025-01-30] MEDS: TAMSULOSIN HCL 0.4 MG CAPSULE PO (21:49)
[2025-01-31 04:47] VITALS: BP 124/66; PULSE 53; RESP 18; TEMP 36.5; O2SAT 98
[2025-01-31 05:55] LABS: Basophils Percent Auto 0.4 % (0.2-1.2); Eosinophils Absolute Auto 0.1 K/mm3 (0-0.3); Eosinophils Percent Auto 1.1 % (0-4.4); Hematocrit 31.4 % (42.0-52.0); Hemoglobin 10.1 g/dL (14.0-18.0); Immature Granulocyte Absolute 0.02 K/mm3 (0.00-0.031); Immature Granulocyte Percent A 0.4 % (0-0.5); Lymphocytes Percent Auto 9.2 % (18.3-44.2); Mean Corpuscular HGB Conc 32.2 g/dl (32-36); Mean Corpuscular Hemoglobin 30.1 pg (26-34); Mean Corpuscular Volume 93.5 fl (80-100); Mean Platelet Volume 11.6 fl (7.4-10.4); Monocytes Absolute Auto 0.5 K/mm3 (0.1-0.6); Monocytes Percent Auto 9.2 % (2.6-8.5); Neutrophils Absolute Auto 4.3 K/mm3 (1.3-6.7); Neutrophils Percent Auto 79.7 % (45.5-73.1); Platelet Count Result 145 k/mm3 (150-375); Red Blood Count 3.36 M/mm3 (4.6-6.20); Red Cell Distribution Width 15.6 % (11.5-14.5); White Blood Count 5.4 K/mm3 (4.5-10.0)
[2025-01-31 06:05] LABS: Alanine Aminotransferase 14 U/L (6-50); Albumin Level 2.6 g/dL (3.5-5.1); Alkaline Phosphatase 63 U/L (38-126); Anion Gap 10 mmol/L (4-12); Aspartate Amino Transferase 24 U/L (17-59); Bilirubin,Total 0.3 mg/dL (0.2-1.3); Blood Urea Nitrogen 57 mg/dL (9-20); Calcium 8.6 mg/dL (8.4-10.2); Carbon Dioxide 20 mmol/L (22-30); Chloride 110 mmol/L (98-107); Estimated CRCL calculation 19 ml/min; Estimated Glomerular Filt Rate 25; Glucose 107 mg/dL (65-110); Potassium 4.8 mmol/L (3.4-5.0); Sodium 140 mmol/L (137-145)
[2025-01-31] MEDS: FERROUS SULFATE 325 MG TABLET DR BY MOUTH (09:22)
[2025-01-31] MEDS: PANTOPRAZOLE 40 MG TABLET PO (09:22)
[2025-01-31] MEDS: FINASTERIDE 5 MG TABLET PO (09:22)
--- NOTE | 2025-01-31 09:23 | P.PNIM_ITS ---
Progress Note: A&P Assessment and Plan (1) Calculus of ureterovesical junction (UVJ): Code(s): N20.1 - Calculus of ureter Status: Acute Assessment and Plan: Patient with significant urological history and chronic indwelling Higgins catheter follows with Dr. Mendez outpatient, last with a catheter exchange 01/13/2025 * Urology consulted * CTA with 3mm UJV * NPO for possible intervention after follow-up CT * Follow-up CT ABD * Pain cuntrol * IV fluids * Antiemetics * Chronic indwelling Higgins catheter placed 01/30- The bladder stones were then lasered using the 500 micron fiber and retrieved. Urology operative report is reviewed: ''An attempt was made to pass a wire and angled guidewire up into the kidney this was unsuccessful. I then placed a rigid ureteral scope into the orifice. The small calcification sort of fragmented and was cleared at the UVJ. Pyelogram was performed which revealed extremely tortuous distal ureter which was dilated. I was again unable to manipulate any wires up into the kidney. Since this has been a chronic issue I decided to terminate it. A similar procedure was done on the left with a retrograde pyelogram attempted will placement of wire but again significant tortuosity of the ureter... Sixteen [place] Higgins was placed with 10 cc in the balloon. Plan is to have the Higgnis catheter removed in the next day or 2 for voiding trial and postvoid residual checks. Unfortunately if his creatinine worsens or develops symptoms in his flank he may need nephrostomy tubes with antegrade stent attempts. (2) Bilateral hydronephrosis: Code(s): N13.30 - Unspecified hydronephrosis Status: Acute Assessment and Plan: SEE ABOVE #1 (3) Pyelonephritis: Code(s): N12 - Tubulo-interstitial nephritis, not specified as acute or chronic Status: Acute Assessment and Plan: * Max fever 101.1 * Ceftriaxone * IV fluids * Antipyretics * Normal WBC * monitor for signs of sepsis wbc 5.4, afebrile. vs stable (4) UTI (urinary tract infection): Code(s): N39.0 - Urinary tract infection, site not specified Status: Acute Assessment and Plan: * UA 3+ LE, 3+ blood, 6-10 RBC, >100 WBC * Rocephin pending cultures (5) Stage 3b chronic kidney disease: Code(s): N18.32 - Chronic kidney disease, stage 3b Status: Chronic Assessment and Plan: * Likely secondary to above * Baseline in the 2.00 * 2.47 baseline * IV fluids * Avoid nephrotoxic drugs. * Monitor antihypertensive drug therapy. * Avoid NSAIDs. * Routine CMP monitoring GFR. * Monitor electrolytes especially potassium. * Antibiotic doses depending on creatinine clearance. (6) BPH loc w urin obs/LUTS: Code(s): N40.1 - Benign prostatic hyperplasia with lower urinary tract symptoms Status: Acute Assessment and Plan: * Resume flomax * Indwelling Higgins catheter exchange 01/13/2025 higgins inserted per urology during cystoscopy on 01/30 (7) Iron (Fe) deficiency anemia: Code(s): D50.9 - Iron deficiency anemia, unspecified Status: Acute Assessment and Plan: * Hemoglobin 11.2 * Resume patient's ferrous sulfate * Trend * Transfuse PRBCs if hemoglobin <7.0 Plan Code status: Full code per patient DVT prophylaxis: SCD's Stress ulcer prophylaxis: Protonix 40 daily PT/OT notes: Pending Disposition: Patient admitted to the medical unit and went for surgical intervention 01/30/2025 with urology. Continue IV ABX pending cultures may need PT/OT prior to discharge Time Spent With Patient Time with patient: 25 - 35 minutes Subjective Date/time seen: 01/31/25 09:23 Interval history: 84-year-old male who presented to the emergency department with complaints generalized weakness, sudden onset fever, nausea and vomiting. Patient reports past medical history BPH, urological obstruction with chronic indwelling Higgins catheter, chronic bilateral hydronephrosis. ED findings: temperature 101? and UA suspicious for urinary tract infection. CT abdomen showed chronic bilateral hydronephrosis, 2.6 adrenal gland, a 3 mm stone at the right UJV, 10 mm nonobstructing left renal stone severely enlarged prostate, and least 8 bladder stones up to 10 mm. Patient currently denying any chest pain, shortness a breath, dizziness no further nausea or vomiting. Urology was consulted. PT was taken to OR 3.28- for Cystoscopy, bilateral retrogrades, right ureteroscopy distal, holmium laser of bladder calculi, Higgins catheter placement with DR Rodríguez. Pt is calm and resting in bed. Review of Systems Review of Systems: All systems reviewed & are unremarkable except as noted in HPI and below Exam Const: General: comfortable and no acute distress HENMT: Mouth: Yes moist mucous membranes Eyes: General: appearance normal, both eyes and all related structures Neck: Neck: supple Resp: Effort & Inspection: normal respiratory effort Auscultation: clear to auscultation bilaterally Cardio: Rate: regular rate Rhythm: regular rhythm GI: Auscultation: normal bowel sounds Urinary Catheter: Urinary Catheter: patent and draining Skin: General skin exam: normal color and no rashes or lesions noted Neuro: Speech: normal speech Sensory Exam: normal sensation Extrem: General: normal to inspection Psych: Mental Status: mental status grossly normal Affect: normal affect Objective Data Vital Signs Vital Signs: Vital Signs - 24 hr 01/30/25 11:15 01/30/25 13:47 01/30/25 13:56 Temperature 99.7 F H 99.0 F Pulse Rate 60 67 Respiratory Rate 14 15 Blood Pressure 154/69 H 136/69 Pulse Oximetry 98 99 Oxygen Delivery Simple Face Mask Room Air Oxygen Flow Rate 8 01/30/25 14:00 01/30/25 14:15 01/30/25 14:18 Temperature Pulse Rate 72 66 Respiratory Rate 15 19 Blood Pressure 148/100 H 145/70 H Pulse Oximetry 100 100 100 Oxygen Delivery Simple Face Mask Simple Face Mask Room Air Oxygen Flow Rate 8 8 01/30/25 14:30 01/30/25 14:45 01/30/25 15:00 Temperature Pulse Rate 67 69 70 Respiratory Rate 18 18 16 Blood Pressure 143/70 H 139/64 129/66 Pulse Oximetry 99 99 100 Oxygen Delivery Room Air Room Air Room Air Oxygen Flow Rate 01/30/25 15:15 01/30/25 15:30 01/30/25 15:42 Temperature 98.1 F Pulse Rate 72 72 74 Respiratory Rate 18 18 18 Blood Pressure 137/64 145/69 H 145/70 H Pulse Oximetry 100 100 100 Oxygen Delivery Room Air Room Air Room Air Oxygen Flow Rate 01/30/25 20:01 01/30/25 21:52 01/31/25 04:47 Temperature 97.9 F 97.7 F Pulse Rate 104 H 53 L Respiratory Rate 18 18 Blood Pressure 116/63 124/66 Pulse Oximetry 97 98 Oxygen Delivery Room Air Oxygen Flow Rate Intake/Output Intake/Output: Intake & Output 01/28/25 01/29/25 01/30/25 01/31/25 23:59 23:59 23:59 23:59 Intake Total 2220 390 Output Total 290 1200 Balance 1930 -810 Meds/Results Medications: Active Medications Generic Name Dose Route Start Last Admin Trade Name Freq PRN Reason Stop Dose Admin Acetaminophen 650 mg 01/30/25 07:08 Acetaminophen 325 Mg Tablet PO Q4H PRN Mild Pain (1-3) or Fever Fentanyl Citrate 25 mcg 01/30/25 12:51 Fentanyl Citrate Inj (*Crx) 100 Mcg/2 Ml Vial IV PUSH Q2M PRN Pain Ferrous Sulfate 325 mg 01/31/25 09:00 01/31/25 09:22 Ferrous Sulfate [address] BY MOUTH 325 mg DAILY QAMAR Administration Finasteride 5 mg 01/31/25 09:00 01/31/25 09:22 Finasteride 5 Mg Tablet PO 5 mg DAILY QAMAR Administration Lactated Ringer's 1,000 mls @ 100 mls/hr 01/30/25 07:10 01/30/25 17:58 Lr - Lactated Ringers Iv IV CONT Not Given .Q10H QAMAR Ceftriaxone Sodium 1 gm in 50 mls @ 100 mls/hr 01/30/25 21:00 01/30/25 22:21 Rocephin 1 Gm/Ns 50 Ml IVPB Infused Q24H QAMAR Infusion Lactated Ringer's 1,000 mls @ 30 mls/hr 01/30/25 12:55 01/30/25 14:40 Lr - Lactated Ringers Iv IV CONT Infused .Q24H QAMAR Infusion Lactated Ringer's 1,000 mls @ 30 mls/hr 01/30/25 12:55 01/30/25 15:44 Lr - Lactated Ringers Iv IV CONT Infused .Q24H QAMAR Infusion Ondansetron HCl 4 mg 01/30/25 07:08 Ondansetron Inj 4 Mg/2 Ml Vial IV PUSH Q4H PRN Nausea Ondansetron HCl 4 mg 01/30/25 12:51 Ondansetron Inj 4 Mg/2 Ml Vial IV PUSH ONCE PRN Nausea Pantoprazole Sodium 40 mg 01/31/25 09:00 01/31/25 09:22 Pantoprazole 40 Mg Tablet PO 40 mg QAM QAMAR Administration Tamsulosin HCl 0.4 mg 01/30/25 21:00 01/30/25 21:49 Tamsulosin Hcl 0.4 Mg Capsule PO 0.4 mg QHS QAMAR Administration Radiology Results: ITS Impressions Abdomen/Pelvis CT 01/30/25 10:46 IMPRESSION: 1. 4 mm stone at right ureterovesicular junction. Chronic severe bilateral hydronephrosis and hydroureter. 2. Nonobstructing left kidney stone. 3. Mobile bladder stones. Retrograde Pyelogram 01/30/25 14:53 IMPRESSION: 1. Fluoroscopy utilized during bilateral retrograde pyelograms. See procedure note for further detail. Labs Labs: Laboratory Results - last 24 hr 01/31/25 05:23 WBC 5.4 RBC 3.36 L Hgb 10.1 L Hct 31.4 L MCV 93.5 MCH 30.1 MCHC 32.2 RDW 15.6 H Plt Count 145 L MPV 11.6 H Immature Gran % (Auto) 0.4 Neut % (Auto) 79.7 H Lymph % (Auto) 9.2 L [place] % (Auto) 9.2 H Eos % (Auto) 1.1 Baso % (Auto) 0.4 Lymph # (Auto) 0.50 L [place] # (Auto) 0.5 Eos # (Auto) 0.1 Baso # (Auto) 0.0 Abs Immat Gran (auto) 0.02 Absolute Neuts (auto) 4.3 Absolute Nucleated RBC 0.000 Nucleated RBC % 0.0 Sodium 140 Potassium 4.8 Chloride 110 H Carbon Dioxide 20 L Anion Gap 10 BUN 57 H Creatinine 2.48 H Estim Creat Clear Calc 19 Estimated GFR 25 L Glucose 107 Calcium 8.6 Total Bilirubin 0.3 AST 24 ALT 14 Alkaline Phosphatase 63 Total Protein 6.0 L Albumin 2.6 L Quality VTE Prophylaxis VTE prophylaxis: mechanical ordered
[2025-01-31 12:00] VITALS: BP 116/58; PULSE 110; RESP 18; TEMP 36.5; O2SAT 98
[2025-01-31 14:00] VITALS: O2SAT 96
[2025-01-31] MEDS: LACTATED RINGERS 1,000 ML 100 ML IV CONT (14:34)
[2025-01-31 16:00] VITALS: BP 120/72; PULSE 95; RESP 18; TEMP 36.9; O2SAT 100
--- NOTE | 2025-01-31 16:36 | WPDANESPN ---
Anes - Prog Note Post-Op Date/Time: 01/31/25 16:36 Cardiovascular status: normal Respiratory status: normal Airway patency: baseline Mental status: baseline Post-Op hydration status: normal Vital Signs: Last Vital Signs Temp 36.9 C 01/31/25 16:00 Pulse 95 01/31/25 16:00 Resp 18 01/31/25 16:00 BP 120/72 01/31/25 16:00 Pulse Ox 100 01/31/25 16:00 O2 Del Method Room Air 01/31/25 14:00 O2 Flow Rate 8 01/30/25 14:15 Pain Score (VAS): 1 I/O: Intake & Output 01/31/25 01/31/25 01/31/25 07:59 15:59 23:59 Intake Total 1390 1020 500 Output Total 1200 750 Balance 190 1020 -250 Laboratory Tests 01/31/25 05:23 01/31/25 05:23 01/31/25 05:23 WBC 5.4 RBC 3.36 L Hgb 10.1 L Hct 31.4 L MCV 93.5 MCH 30.1 MCHC 32.2 RDW 15.6 H Plt Count 145 L MPV 11.6 H Immature Gran % (Auto) 0.4 Neut % (Auto) 79.7 H Lymph % (Auto) 9.2 L [place] % (Auto) 9.2 H Eos % (Auto) 1.1 Baso % (Auto) 0.4 Lymph # (Auto) 0.50 L [place] # (Auto) 0.5 Eos # (Auto) 0.1 Baso # (Auto) 0.0 Abs Immat Gran (auto) 0.02 Absolute Neuts (auto) 4.3 Absolute Nucleated RBC 0.000 Nucleated RBC % 0.0 Sodium 140 Potassium 4.8 Chloride 110 H Carbon Dioxide 20 L Anion Gap 10 BUN 57 H Creatinine 2.48 H Estim Creat Clear Calc 19 Estimated GFR 25 L Glucose 107 Calcium 8.6 Total Bilirubin 0.3 AST 24 ALT 14 Alkaline Phosphatase 63 Total Protein 6.0 L Albumin 2.6 L Microbiology 01/30/25 02:25 Unspecified Urine Culture - Preliminary Klebsiella pneumoniae Post-procedural complaints: none Patient Feedback: Patient satisfied with anesthetic care.
--- NOTE | 2025-01-31 16:38 | WPDUROPN2 ---
Progress Note: A&P Assessment and Plan (1) Calculus of ureterovesical junction (UVJ): Code(s): N20.1 - Calculus of ureter Status: Acute (2) CKD (chronic kidney disease): Qualifiers: Chronic kidney disease stage: unspecified stage Qualified Code(s): N18.9 - Chronic kidney disease, unspecified Code(s): N18.9 - Chronic kidney disease, unspecified Status: Acute (3) CKD (chronic kidney disease): Code(s): N18.9 - Chronic kidney disease, unspecified Status: Acute (4) Bladder calculi: Code(s): N21.0 - Calculus in bladder Status: Acute Plan 84-year-old gentleman with history of urinary retention and BPH, chronic hydroureteronephrosis. He was found to have a right distal ureteral stone. Patient s/p bilateral retrogrades, right ureteroscopy distal, holmium laser of bladder calculi, Patrick catheter placement - 01/30/25 --creatinine stable at 2.48. Continue to monitor daily labs. If his creatinine worsens or develops symptoms in his flank he may need nephrostomy tubes with antegrade stent attempts. --continue Patrick catheter. Consider Patrick catheter removal for void trial and postvoid residual checks in 1-2 days. If patient unable to efficiently empty his bladder, will need catheter replacement or teaching of intermittent catheterization. Subjective Subjective Date/Time Seen: 01/31/25 16:38 Interval history: Patient states he is feeling well. No issues. Exam Narrative: Patient is awake alert. He is in no acute distress. His breathing is unlabored. Abdomen soft nontender nondistended. He has a Patrick catheter in place that is draining yellow urine. Objective Data Vital Signs Vital Signs: Vital Signs - 24 hr 01/30/25 20:01 01/30/25 21:52 01/31/25 04:47 Temperature 36.6 C 36.5 C Pulse Rate 104 H 53 L Respiratory Rate 18 18 Blood Pressure 116/63 124/66 Pulse Oximetry 97 98 Oxygen Delivery Room Air 01/31/25 12:00 01/31/25 14:00 01/31/25 16:00 Temperature 36.5 C 36.9 C Pulse Rate 110 H 95 Respiratory Rate 18 18 Blood Pressure 116/58 L 120/72 Pulse Oximetry 98 96 100 Oxygen Delivery Room Air Intake/Output Intake/Output: Intake & Output 01/28/25 01/29/25 01/30/25 01/31/25 23:59 23:59 23:59 23:59 Intake Total 2220 2910 Output Total 290 1950 Balance 1930 960 Meds/Results Medications: Active Medications Generic Name Dose Route Start Last Admin Trade Name Freq PRN Reason Stop Dose Admin Acetaminophen 650 mg 01/30/25 07:08 Acetaminophen 325 Mg Tablet PO Q4H PRN Mild Pain (1-3) or Fever Fentanyl Citrate 25 mcg 01/30/25 12:51 Fentanyl Citrate Inj (*Crx) 100 Mcg/2 Ml Vial IV PUSH Q2M PRN Pain Ferrous Sulfate 325 mg 01/31/25 09:00 01/31/25 09:22 Ferrous Sulfate [address] BY MOUTH 325 mg DAILY QAMAR Administration Finasteride 5 mg 01/31/25 09:00 01/31/25 09:22 Finasteride 5 Mg Tablet PO 5 mg DAILY QAMAR Administration Lactated Ringer's 1,000 mls @ 100 mls/hr 01/30/25 07:10 01/31/25 14:39 Lr - Lactated Ringers Iv IV CONT Not Given .Q10H QAMAR Ceftriaxone Sodium 1 gm in 50 mls @ 100 mls/hr 01/30/25 21:00 01/30/25 22:21 Rocephin 1 Gm/Ns 50 Ml IVPB Infused Q24H QAMAR Infusion Ondansetron HCl 4 mg 01/30/25 07:08 Ondansetron Inj 4 Mg/2 Ml Vial IV PUSH Q4H PRN Nausea Ondansetron HCl 4 mg 01/30/25 12:51 Ondansetron Inj 4 Mg/2 Ml Vial IV PUSH ONCE PRN Nausea Pantoprazole Sodium 40 mg 01/31/25 09:00 01/31/25 09:22 Pantoprazole 40 Mg Tablet PO 40 mg QAM QAMAR Administration Tamsulosin HCl 0.4 mg 01/30/25 21:00 01/30/25 21:49 Tamsulosin Hcl 0.4 Mg Capsule PO 0.4 mg QHS QAMAR Administration Radiology Results: ITS Impressions Abdomen/Pelvis CT 01/30/25 10:46 IMPRESSION: 1. 4 mm stone at right ureterovesicular junction. Chronic severe bilateral hydronephrosis and hydroureter. 2. Nonobstructing left kidney stone. 3. Mobile bladder stones. Retrograde Pyelogram 01/30/25 14:53 IMPRESSION: 1. Fluoroscopy utilized during bilateral retrograde pyelograms. See procedure note for further detail. Labs Labs: Laboratory Results - last 24 hr 01/31/25 05:23 WBC 5.4 RBC 3.36 L Hgb 10.1 L Hct 31.4 L MCV 93.5 MCH 30.1 MCHC 32.2 RDW 15.6 H Plt Count 145 L MPV 11.6 H Immature Gran % (Auto) 0.4 Neut % (Auto) 79.7 H Lymph % (Auto) 9.2 L [place] % (Auto) 9.2 H Eos % (Auto) 1.1 Baso % (Auto) 0.4 Lymph # (Auto) 0.50 L [place] # (Auto) 0.5 Eos # (Auto) 0.1 Baso # (Auto) 0.0 Abs Immat Gran (auto) 0.02 Absolute Neuts (auto) 4.3 Absolute Nucleated RBC 0.000 Nucleated RBC % 0.0 Sodium 140 Potassium 4.8 Chloride 110 H Carbon Dioxide 20 L Anion Gap 10 BUN 57 H Creatinine 2.48 H Estim Creat Clear Calc 19 Estimated GFR 25 L Glucose 107 Calcium 8.6 Total Bilirubin 0.3 AST 24 ALT 14 Alkaline Phosphatase 63 Total Protein 6.0 L Albumin 2.6 L
[2025-01-31 19:57] VITALS: BP 128/50; PULSE 80; RESP 16; TEMP 37.3; O2SAT 97
[2025-01-31] MEDS: TAMSULOSIN HCL 0.4 MG CAPSULE PO (21:02)
[2025-02-01] VITALS (7 sets, daily range): BP systolic 118–174; BP diastolic 60–74; PULSE 53–110; RESP 14–18; TEMP 36.3–37.4; O2SAT 96–98
[2025-02-01] MEDS: LACTATED RINGERS 1,000 ML 100 ML IV CONT ×3 (00:50→23:53)
[2025-02-01 05:43] LABS: Basophils Percent Auto 0.3 % (0.2-1.2); Eosinophils Absolute Auto 0.3 K/mm3 (0-0.3); Eosinophils Percent Auto 4.1 % (0-4.4); Hematocrit 31.2 % (42.0-52.0); Hemoglobin 10.1 g/dL (14.0-18.0); Immature Granulocyte Absolute 0.02 K/mm3 (0.00-0.031); Immature Granulocyte Percent A 0.3 % (0-0.5); Lymphocytes Absolute Auto 0.64 K/mm3 (0.9-3.2); Lymphocytes Percent Auto 10.4 % (18.3-44.2); Mean Corpuscular HGB Conc 32.4 g/dl (32-36); Mean Corpuscular Hemoglobin 29.9 pg (26-34); Mean Corpuscular Volume 92.3 fl (80-100); Mean Platelet Volume 11.4 fl (7.4-10.4); Monocytes Absolute Auto 0.6 K/mm3 (0.1-0.6); Monocytes Percent Auto 9.7 % (2.6-8.5); Neutrophils Absolute Auto 4.6 K/mm3 (1.3-6.7); Neutrophils Percent Auto 75.2 % (45.5-73.1); Platelet Count Result 157 k/mm3 (150-375); Red Blood Count 3.38 M/mm3 (4.6-6.20); Red Cell Distribution Width 15.5 % (11.5-14.5); White Blood Count 6.2 K/mm3 (4.5-10.0)
[2025-02-01 05:57] LABS: Alanine Aminotransferase 12 U/L (6-50); Albumin Level 2.5 g/dL (3.5-5.1); Alkaline Phosphatase 68 U/L (38-126); Anion Gap 6 mmol/L (4-12); Aspartate Amino Transferase 23 U/L (17-59); Bilirubin,Total 0.3 mg/dL (0.2-1.3); Blood Urea Nitrogen 57 mg/dL (9-20); Calcium 8.5 mg/dL (8.4-10.2); Carbon Dioxide 20 mmol/L (22-30); Chloride 111 mmol/L (98-107); Estimated CRCL calculation 20 ml/min; Estimated Glomerular Filt Rate 26; Glucose 95 mg/dL (65-110); Potassium 4.4 mmol/L (3.4-5.0); Sodium 137 mmol/L (137-145)
[2025-02-01] MEDS: FERROUS SULFATE 325 MG TABLET DR BY MOUTH (08:46)
[2025-02-01] MEDS: FINASTERIDE 5 MG TABLET PO (08:46)
[2025-02-01] MEDS: PANTOPRAZOLE 40 MG TABLET PO (08:46)
--- NOTE | 2025-02-01 10:05 | P.PNIM_ITS ---
Progress Note: A&P Assessment and Plan (1) Calculus of ureterovesical junction (UVJ): Code(s): N20.1 - Calculus of ureter Status: Acute Assessment and Plan: Patient with significant urological history and chronic indwelling Higgins catheter follows with Dr. Mendez outpatient, last with a catheter exchange 01/13/2025 * Urology consulted * CTA with 3mm UJV * NPO for possible intervention after follow-up CT * Follow-up CT ABD * Pain cuntrol * IV fluids * Antiemetics * Chronic indwelling Higgins catheter placed 01/30- The bladder stones were then lasered using the 500 micron fiber and retrieved. Urology operative report is reviewed: ''An attempt was made to pass a wire and angled guidewire up into the kidney this was unsuccessful. I then placed a rigid ureteral scope into the orifice. The small calcification sort of fragmented and was cleared at the UVJ. Pyelogram was performed which revealed extremely tortuous distal ureter which was dilated. I was again unable to manipulate any wires up into the kidney. Since this has been a chronic issue I decided to terminate it. A similar procedure was done on the left with a retrograde pyelogram attempted will placement of wire but again significant tortuosity of the ureter... Sixteen [place] Higgins was placed with 10 cc in the balloon. Plan is to have the Higgins catheter removed in the next day or 2 for voiding trial and postvoid residual checks. Unfortunately if his creatinine worsens or develops symptoms in his flank he may need nephrostomy tubes with antegrade stent attempts. 02/01 cr stable this am. per urology note if cr worsens or flank pain, may need nephrostomy tubes placement. Continue higgins but consider void trial and removal. [id number] per urology (2) Bilateral hydronephrosis: Code(s): N13.30 - Unspecified hydronephrosis Status: Acute Assessment and Plan: SEE ABOVE #1 (3) Pyelonephritis: Code(s): N12 - Tubulo-interstitial nephritis, not specified as acute or chronic Status: Acute Assessment and Plan: * Max fever 101.1 * Ceftriaxone * IV fluids * Antipyretics * Normal WBC * monitor for signs of sepsis wbc 5.4, afebrile. vs stable (4) UTI (urinary tract infection): Code(s): N39.0 - Urinary tract infection, site not specified Status: Acute Assessment and Plan: * UA 3+ LE, 3+ blood, 6-10 RBC, >100 WBC * Rocephin pending cultures (5) Stage 3b chronic kidney disease: Code(s): N18.32 - Chronic kidney disease, stage 3b Status: Chronic Assessment and Plan: * Likely secondary to above * Baseline in the 2.00 * 2.47 baseline * IV fluids * Avoid nephrotoxic drugs. * Monitor antihypertensive drug therapy. * Avoid NSAIDs. * Routine CMP monitoring GFR. * Monitor electrolytes especially potassium. * Antibiotic doses depending on creatinine clearance. (6) BPH loc w urin obs/LUTS: Code(s): N40.1 - Benign prostatic hyperplasia with lower urinary tract symptoms Status: Acute Assessment and Plan: * Resume flomax * Indwelling Higgins catheter exchange 01/13/2025 higgins inserted per urology during cystoscopy on 01/30 (7) Iron (Fe) deficiency anemia: Code(s): D50.9 - Iron deficiency anemia, unspecified Status: Acute Assessment and Plan: * Hemoglobin 11.2 * Resume patient's ferrous sulfate * Trend * Transfuse PRBCs if hemoglobin <7.0 Plan Code status: Full code per patient DVT prophylaxis: SCD's Stress ulcer prophylaxis: Protonix 40 daily PT/OT notes: Pending Disposition: Patient admitted to the medical unit and went for surgical intervention 01/30/2025 with urology. Continue IV ABX pending cultures may need PT/OT prior to discharge Time Spent With Patient Time with patient: 25 - 35 minutes Subjective Date/time seen: 02/01/25 10:05 Interval history: Pt is seen and examined. s/p bilateral retrogrades, right ureteroscopy distal, holmium laser of bladder calculi, Higgins catheter placement - 01/30/[address] Rodríguez. Higgins still in place. Pt/OT ordered. Review of Systems Review of Systems: All systems reviewed & are unremarkable except as noted in HPI and below Exam Const: General: comfortable and no acute distress HENMT: Mouth: Yes moist mucous membranes Eyes: General: appearance normal, both eyes and all related structures Neck: Neck: supple Resp: Effort & Inspection: normal respiratory effort Auscultation: clear to auscultation bilaterally Cardio: Rate: regular rate Rhythm: regular rhythm GI: Auscultation: normal bowel sounds Urinary Catheter: Urinary Catheter: patent and draining Skin: General skin exam: normal color and no rashes or lesions noted Neuro: Speech: normal speech Sensory Exam: normal sensation Extrem: General: normal to inspection Psych: Mental Status: mental status grossly normal Affect: normal affect Objective Data Vital Signs Vital Signs: Vital Signs - 24 hr 01/31/25 12:00 01/31/25 14:00 01/31/25 16:00 Temperature 97.7 F 98.4 F Pulse Rate 110 H 95 Respiratory Rate 18 18 Blood Pressure 116/58 L 120/72 Pulse Oximetry 98 96 100 Oxygen Delivery Room Air 01/31/25 19:57 01/31/25 20:00 02/01/25 00:26 Temperature 99.2 F 99.2 F Pulse Rate 80 94 Respiratory Rate 16 16 Blood Pressure 128/50 L 134/62 Pulse Oximetry 97 98 Oxygen Delivery Room Air 02/01/25 04:43 02/01/25 07:47 Temperature 99.3 F 97.3 F L Pulse Rate 110 H 53 L Respiratory Rate 14 18 Blood Pressure 147/72 H 174/69 H Pulse Oximetry 96 97 Oxygen Delivery Intake/Output Intake/Output: Intake & Output 01/29/25 01/30/25 01/31/25 02/01/25 23:59 23:59 23:59 23:59 Intake Total 2220 3400 1790 Output Total 290 1950 1550 Balance 1930 1450 240 Meds/Results Medications: Active Medications Generic Name Dose Route Start Last Admin Trade Name Freq PRN Reason Stop Dose Admin Acetaminophen 650 mg 01/30/25 07:08 Acetaminophen 325 Mg Tablet PO Q4H PRN Mild Pain (1-3) or Fever Fentanyl Citrate 25 mcg 01/30/25 12:51 Fentanyl Citrate Inj (*Crx) 100 Mcg/2 Ml Vial IV PUSH Q2M PRN Pain Ferrous Sulfate 325 mg 01/31/25 09:00 02/01/25 08:46 Ferrous Sulfate [address] BY MOUTH 325 mg DAILY QAMAR Administration Finasteride 5 mg 01/31/25 09:00 02/01/25 08:46 Finasteride 5 Mg Tablet PO 5 mg DAILY QAMAR Administration Lactated Ringer's 1,000 mls @ 100 mls/hr 01/30/25 07:10 02/01/25 00:50 Lr - Lactated Ringers Iv IV CONT 100 mls/hr .Q10H QAMAR Administration Ceftriaxone Sodium 1 gm in 50 mls @ 100 mls/hr 01/30/25 21:00 01/31/25 21:36 Rocephin 1 Gm/Ns 50 Ml IVPB Infused Q24H QAMAR Infusion Ondansetron HCl 4 mg 01/30/25 07:08 Ondansetron Inj 4 Mg/2 Ml Vial IV PUSH Q4H PRN Nausea Ondansetron HCl 4 mg 01/30/25 12:51 Ondansetron Inj 4 Mg/2 Ml Vial IV PUSH ONCE PRN Nausea Pantoprazole Sodium 40 mg 01/31/25 09:00 02/01/25 08:46 Pantoprazole 40 Mg Tablet PO 40 mg QAM QAMAR Administration Tamsulosin HCl 0.4 mg 01/30/25 21:00 01/31/25 21:02 Tamsulosin Hcl 0.4 Mg Capsule PO 0.4 mg QHS QAMAR Administration Radiology Results: ITS Impressions Abdomen/Pelvis CT 01/30/25 10:46 IMPRESSION: 1. 4 mm stone at right ureterovesicular junction. Chronic severe bilateral hydronephrosis and hydroureter. 2. Nonobstructing left kidney stone. 3. Mobile bladder stones. Retrograde Pyelogram 01/30/25 14:53 IMPRESSION: 1. Fluoroscopy utilized during bilateral retrograde pyelograms. See procedure note for further detail. Labs Labs: Laboratory Results - last 24 hr 02/01/25 05:15 WBC 6.2 RBC 3.38 L Hgb 10.1 L Hct 31.2 L MCV 92.3 MCH 29.9 MCHC 32.4 RDW 15.5 H Plt Count 157 MPV 11.4 H Immature Gran % (Auto) 0.3 Neut % (Auto) 75.2 H Lymph % (Auto) 10.4 L [place] % (Auto) 9.7 H Eos % (Auto) 4.1 Baso % (Auto) 0.3 Lymph # (Auto) 0.64 L [place] # (Auto) 0.6 Eos # (Auto) 0.3 Baso # (Auto) 0.0 Abs Immat Gran (auto) 0.02 Absolute Neuts (auto) 4.6 Absolute Nucleated RBC 0.000 Nucleated RBC % 0.0 Sodium 137 Potassium 4.4 Chloride 111 H Carbon Dioxide 20 L Anion Gap 6 BUN 57 H Creatinine 2.41 H Estim Creat Clear Calc 20 Estimated GFR 26 L Glucose 95 Calcium 8.5 Total Bilirubin 0.3 AST 23 ALT 12 Alkaline Phosphatase 68 Total Protein 6.0 L Albumin 2.5 L Quality VTE Prophylaxis VTE prophylaxis: mechanical ordered
[2025-02-01] MEDS: TAMSULOSIN HCL 0.4 MG CAPSULE PO (20:38)
[2025-02-02 04:00] VITALS: BP 154/69; PULSE 66; RESP 16; TEMP 36.7; O2SAT 97
[2025-02-02 05:57] LABS: Basophils Percent Auto 0.3 % (0.2-1.2); Eosinophils Absolute Auto 0.4 K/mm3 (0-0.3); Eosinophils Percent Auto 6.5 % (0-4.4); Hematocrit 31.8 % (42.0-52.0); Hemoglobin 10.1 g/dL (14.0-18.0); Immature Granulocyte Absolute 0.03 K/mm3 (0.00-0.031); Immature Granulocyte Percent A 0.5 % (0-0.5); Lymphocytes Absolute Auto 0.76 K/mm3 (0.9-3.2); Lymphocytes Percent Auto 12.6 % (18.3-44.2); Mean Corpuscular HGB Conc 31.8 g/dl (32-36); Mean Corpuscular Hemoglobin 29.2 pg (26-34); Mean Corpuscular Volume 91.9 fl (80-100); Mean Platelet Volume 10.9 fl (7.4-10.4); Monocytes Absolute Auto 0.7 K/mm3 (0.1-0.6); Monocytes Percent Auto 11.9 % (2.6-8.5); Neutrophils Absolute Auto 4.1 K/mm3 (1.3-6.7); Neutrophils Percent Auto 68.2 % (45.5-73.1); Platelet Count Result 176 k/mm3 (150-375); Red Blood Count 3.46 M/mm3 (4.6-6.20); Red Cell Distribution Width 15.1 % (11.5-14.5)
[2025-02-02 06:18] LABS: Alanine Aminotransferase 13 U/L (6-50); Albumin Level 2.4 g/dL (3.5-5.1); Alkaline Phosphatase 71 U/L (38-126); Anion Gap 4 mmol/L (4-12); Aspartate Amino Transferase 20 U/L (17-59); Bilirubin,Total 0.3 mg/dL (0.2-1.3); Blood Urea Nitrogen 43 mg/dL (9-20); Calcium 8.6 mg/dL (8.4-10.2); Carbon Dioxide 24 mmol/L (22-30); Chloride 110 mmol/L (98-107); Estimated CRCL calculation 23 ml/min; Estimated Glomerular Filt Rate 31; Glucose 96 mg/dL (65-110); Potassium 4.4 mmol/L (3.4-5.0); Sodium 138 mmol/L (137-145)
[2025-02-02 08:00] VITALS: BP 166/74; PULSE 55; RESP 18; TEMP 36.2; O2SAT 98
[2025-02-02] MEDS: PANTOPRAZOLE 40 MG TABLET PO (08:14)
[2025-02-02] MEDS: LACTATED RINGERS 1,000 ML 100 ML IV CONT (08:14)
[2025-02-02] MEDS: FINASTERIDE 5 MG TABLET PO (08:14)
[2025-02-02] MEDS: FERROUS SULFATE 325 MG TABLET DR BY MOUTH (08:14)
[2025-02-02 12:00] VITALS: BP 137/90; PULSE 48; RESP 18; TEMP 36.3; O2SAT 100
--- NOTE | 2025-02-02 14:51 | P.DS_ITS ---
DS: Admitting Diagnosis Discharge Date 02/02 Admitting Diagnosis uti DS: Discharge Diagnosis Discharge Diagnosis (1) Calculus of ureterovesical junction (UVJ): Code(s): N20.1 - Calculus of ureter Status: Acute (2) Bilateral hydronephrosis: Code(s): N13.30 - Unspecified hydronephrosis Status: Acute (3) Pyelonephritis: Code(s): N12 - Tubulo-interstitial nephritis, not specified as acute or chronic Status: Acute Assessment and Plan: * (4) UTI (urinary tract infection): Code(s): N39.0 - Urinary tract infection, site not specified Status: Acute Assessment and Plan: * (5) Stage 3b chronic kidney disease: Code(s): N18.32 - Chronic kidney disease, stage 3b Status: Chronic Assessment and Plan: * (6) BPH loc w urin obs/LUTS: Code(s): N40.1 - Benign prostatic hyperplasia with lower urinary tract symptoms Status: Acute (7) Iron (Fe) deficiency anemia: Code(s): D50.9 - Iron deficiency anemia, unspecified Status: Acute DS: Summary Hospital Course Hospital Course: benjie was an 84-year-old male who presented to the emergency department with complaints generalized weakness, sudden onset fever, nausea and vomiting. Patient reports past medical history BPH, urological obstruction with chronic indwelling Patrick catheter, chronic bilateral hydronephrosis. Initial findings in the emergency department patient with temperature 101? and UA suspicious for urinary tract infection. CT abdomen showed chronic bilateral hydronephrosis, 2.6 adrenal gland, a 3 mm stone at the right UJV, 10 mm nonobstructing left renal stone severely enlarged prostate, and least 8 bladder stones up to 10 mm. Patient currently denying any chest pain, shortness a breath, dizziness no further nausea or vomiting. S/p bilateral retrogrades, right ureteroscopy distal, holmium laser of bladder calculi, Patrick catheter placement - 01/30/[address] Rodríguez. Cr/BUN improved. PT worked with pt/ot-did well. Care discussed with DR Blanc this morning. OK to remove Patrick, voiding trials- if pt voids- ok to discharge with a close f/u with pcp and urology. If doesnot void, can re insert Patrick and send home with it. Finish antibiotics- downgraded to PO today. augmentin 7 days. Status at Discharge Functional status at discharge: independent ambulation Overall status at discharge: patient is progressing back to baseline Time Spent with Patient Time attestation: Total time spent providing and/or coordinating discharge services: Time spent: Greater than 30 minutes Exam Const: General: comfortable and no acute distress HENMT: Mouth: Yes moist mucous membranes Eyes: General: appearance normal, both eyes and all related structures Neck: Neck: supple Resp: Effort & Inspection: normal respiratory effort Auscultation: clear to auscultation bilaterally Cardio: Rate: regular rate Rhythm: regular rhythm GI: Auscultation: normal bowel sounds Urinary Catheter: Urinary Catheter: patent and draining Neuro: Speech: normal speech Sensory Exam: normal sensation Extrem: General: normal to inspection Psych: Mental Status: mental status grossly normal Affect: normal affect DS: Data Data Completed and Pending Pending studies at discharge: Pending at discharge 01/30/25 13:33 Surgical [PTH] Routine Labs on day of discharge: Labs from last 24 hours 02/02/25 05:30 WBC 6.0 RBC 3.46 L Hgb 10.1 L Hct 31.8 L MCV 91.9 MCH 29.2 MCHC 31.8 L RDW 15.1 H Plt Count 176 MPV 10.9 H Immature Gran % (Auto) 0.5 Neut % (Auto) 68.2 Lymph % (Auto) 12.6 L [place] % (Auto) 11.9 H Eos % (Auto) 6.5 H Baso % (Auto) 0.3 Lymph # (Auto) 0.76 L [place] # (Auto) 0.7 H Eos # (Auto) 0.4 H Baso # (Auto) 0.0 Abs Immat Gran (auto) 0.03 Absolute Neuts (auto) 4.1 Absolute Nucleated RBC 0.000 Nucleated RBC % 0.0 Sodium 138 Potassium 4.4 Chloride 110 H Carbon Dioxide 24 Anion Gap 4 BUN 43 H D Creatinine 2.04 H Estim Creat Clear Calc 23 Estimated GFR 31 L Glucose 96 Calcium 8.6 Total Bilirubin 0.3 AST 20 ALT 13 Alkaline Phosphatase 71 Total Protein 6.0 L Albumin 2.4 L Discharge Plan Discharge Attending physician on discharge: Derrell Kraus Consulting providers: Daniela Paula; hCris Rodríguez Discharging Clinician: Dorina Lazar Activity: march shower Diet: heart healthy Patient Language: Ecuadorean Discharge Medications: New ondansetron 4 mg tablet,disintegrating 4 mg PO Q8H PRN (Reason: nausea and vomiting) Qty: 7 0RF acetaminophen 500 mg capsule 1,000 mg PO Q6H PRN (Reason: pain) Qty: 30 0RF amoxicillin-pot clavulanate [Augmentin] 500-125 mg Tablet 1 tablet PO Q12HR Qty: 14 0RF Continued ferrous sulfate 325 mg (65 mg iron) tablet 325 mg PO DAILY finasteride 5 mg tablet 5 mg PO DAILY tamsulosin 0.4 mg capsule 0.4 mg PO QHS Qty: 90 2RF Date of admission: 01/31/25 15:13 Primary Care Provider: Say Barber Admitting Provider: Derrell Kraus Attending physician on admission: Derrell Kraus Condition: Stable Quality VTE Prophylaxis VTE prophylaxis: mechanical ordered Hospitalist MIPS Heart Failure (Exclusion) Patient has history of Heart Transplant or Left Ventricular Assistive Device?: No IF YES, STOP HERE Heart Failure (Qualifier) Patient has current or prior documentation of LVEF less than or equal to 40%, or mod/servere depressed LVSF?: No IF NO, STOP HERE
== END 2025-02-02 15:45 | disposition home or self-care (01) | DRG 661 ==
LOC: ANHED 07:41 → ANH3MED 08:11
PROVIDERS: Nurse Practitioner Family; Urology; Admitting Provider General Practice; Emergency Provider Student in an Organized Health Care Education/Training Program; PCP Emergency Medicine; Visit Provider Nurse Practitioner
PROC: (CPT 52352; principal; 2025-01-30 16:30)
DX: N13.6 Pyonephrosis (principal); N21.0 Calculus in bladder; B96.1 Klebsiella pneumoniae [K. pneumoniae] as the cause of diseases classified elsewhere; N40.1 Benign prostatic hyperplasia with lower urinary tract symptoms; R33.8 Other retention of urine; D50.9 Iron deficiency anemia, unspecified; N18.32 Chronic kidney disease, stage 3b; Z20.822 Contact with and (suspected) exposure to COVID-19
CPT/HCPCS: 36415; 74176; 74420; 80053; 81001; 82365; 82550; 83735; 85025; 87086; 87186; 87637; 88300; 96361; 96365; 96375; 96376; 97161; 97165; 99285; A9270; C1758; C1769; J0690; J0696; J2405; J2704; J7030; J7120; Q9966

== ENCOUNTER 2025-02-13 17:51 | Emergency (ER) | payer MEDICARE, SELFPAY ==
[2025-02-13 18:02] VITALS: BP 123/63; PULSE 64; RESP 16; TEMP 35.9; O2SAT 100
[2025-02-13 18:12] LABS: EDUAAPPEAR Cloudy; EDUABILI Negative (Negative); EDUABLOOD 3+ (Negative); EDUACOLOR1 Yellow; EDUAGLUCOSE Negative (Negative); EDUAKETONE Negative (Negative); EDUALEUKO 2+ (Negative); EDUANITRATE Positive (Negative); EDUAPH 5.5; EDUAPROTEIN 3+ (Negative); EDUAUROBILI 0.2
--- NOTE | 2025-02-13 18:17 | ED_ITS ---
HPI - Male Genitourinary General Chief complaint: Urogenital-Male Stated complaint: UTI SYMPTOMS Source: patient and RN notes reviewed Mode of arrival: ambulatory Limitations: no limitations History of Present Illness HPI Narrative: 84-year-old male presents Express Care complaining urinary symptoms x1 day. Patient said this morning he had right flank pain this morning and when he went to use the restroom his pain subsided immediately after urinating. Patient reported having sediment in his urine today. Patient was recently in the hospital for urinary retention, acute kidney failure, and a kidney infection. Patient had a Patrick removed recently that was placed because of his enlarged prostate. Patient recently finished a course of Augmentin for is UTI. Spouse is concerned that he has a UTI because she reports him as being increasingly weak. Patient denies any fevers, chills, body aches, weakness, confusion or any other complaints. Patient sees Dr. Gan for Urology Related Data Home Medications ?Medication ?Instructions ?Recorded ?Confirmed ?Last Taken ?Type finasteride 5 mg tablet 5 mg PO DAILY 09/27/21 02/13/25 01/29/25 History ferrous sulfate 325 mg (65 mg 325 mg PO DAILY 08/29/24 02/13/25 01/29/25 History iron) tablet tamsulosin 0.4 mg capsule 0.4 mg PO BID 02/13/25 02/13/25 Unknown History Allergies Allergy/AdvReac Type Severity Reaction Status Date / Time No Known Allergies Allergy Mild Verified 02/13/25 18:02 Review of Systems Review of Systems: CONSTITUTIONAL: Denies fever, chills, or sweats. EYES: Denies visual changes, redness, or discharge. ENT: Denies rhinorrhea, congestion, sore throat, or otalgia. CARDIOVASCULAR: Denies chest pain, palpitations, or edema. RESPIRATORY: Denies cough or dyspnea. GASTROINTESTINAL: Denies abdominal pain, nausea, vomiting, or diarrhea. GENITOURINARY: Denies dysuria or hematuria. SKIN: Denies rash or itching. MUSCULOSKELETAL: Denies back pain, joint pain, or myalgia. Positive for right flank pain NEUROLOGIC: Denies headache, numbness, or weakness. PSYCHIATRIC: Denies anxiety or depression. All other systems reviewed are negative, except as documented in HPI. [facility]LY [facility] Past Medical History Medical History Urinary catheter insertion/adjustment/removal Hematuria Urinary tract infection Urinary retention LOU (acute kidney injury) Dysuria Urinary frequency Fracture of right scapular body Right shoulder pain Closed fracture of rib of right side with routine healing Screening for prostate cancer PVC (premature ventricular contraction) Psychosexual dysfunction with inhibited sexual excitement Cancer screening BPH loc w urin obs/LUTS Elevated PSA Surgical History Surgical History History of urologic surgery Family History Family History Father Hypertension Family history of elevated blood lipids Family history of cardiovascular disease Social History Social History Smoking status: Never smoker Second hand tobacco smoke exposure: No Alcohol intake: never Substance use: never Substance use type: does not use Do You Feel Safe in your Home?: Yes Lack of Transportation: No Lack of Food: Never True Current Housing: I Have Housing Concerned About Future Housing: No Difficulty Paying Gas/Electric Bills: No Difficulty Paying for Meds: No Currently Unemployed: No Education: Associate Degree Difficulty w/ Childcare or Family Care: No Living arrangements: with family Additional living arrangements comments: 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 There is no relevant family history pertinent to the patient complaint. Exam Narrative: GENERAL: This is a well-nourished, well-developed adult, in no apparent distress. They are non ill-appearing, nontoxic appearing. HEAD: normocephalic, atraumatic. EYES: Sclera clear/white. Vision is grossly intact. EARS: External ears normal, Hearing grossly intact. NOSE: External nose normal THROAT: Mucous membranes moist NECK: Neck supple, non-tender without lymphadenopathy, masses or thyromegaly. CARDIOVASCULAR: Regular rate and rhythm without murmurs, gallops, or rubs. RESPIRATORY: Clear to auscultation. Breath sounds equal bilaterally. No wheezes, rales, or rhonchi. GASTROINTESTINAL: Abdomen soft, non-tender, nondistended. Bowel sounds are active. No hepato-splenomegaly, or palpable masses. No guarding. SKIN: warm, Dry, intact with no suspicious lesions or rash, good texture and turgor. NEURO: awake, alert, and oriented to person, place and time. There were no obvious focal neurologic abnormalities. EXTREMITIES: No joint tenderness, effusion, or edema noted. BACK: Nontender without deformity. No CVA tenderness. Course Course Level of Care: Express Care Visit Vital Signs Vital signs: Vital Signs Temperature 96.7 F L 02/13/25 18:02 Pulse Rate 64 02/13/25 18:02 Respiratory Rate 16 02/13/25 18:02 Blood Pressure 123/63 02/13/25 18:02 Pulse Oximetry 100 02/13/25 18:02 Temperature 96.7 F L 02/13/25 18:02 Pulse Rate 64 02/13/25 18:02 Respiratory Rate 16 02/13/25 18:02 Blood Pressure 123/63 02/13/25 18:02 Pulse Oximetry 100 02/13/25 18:02 Reviewed MDM - Male Genitourinary MDM Narrative Medical decision making narrative: Patient's urine dipstick is consistent with urinary tract infection, it is possible he might have passed a stone at home given that he was having right flank pain that immediately subsided after urination today. Patient has no other complaints. Urine culture pending. Previous culture grew Klebsiella pneumoniae. Given the patient's history and risk factors, will treat him empirically with ciprofloxacin that will be renally dosed due to his creatinine clearance calculated to 26 based off up-to-date recommendations. Discussed physical exam findings. Advised supportive measures and signs/symptoms to go to the ER. Pt is appropriate for outpt treatment and f/u. Differential Diagnosis Differential diagnosis: Likely urinary tract infection and other (Renal stone, cystitis) Lab Data Attestation: I reviewed the patient's lab results. Labs: Lab Results 02/13/25 Range/Units 18:10 POC Urine Color Yellow POC Urine Clarity Cloudy POC Urine pH 5.5 POC Ur Specif [place] 1.020 POC Urine Protein 3+ (Negative) POC Ur Glucose (UA) Negative (Negative) POC Urine Ketones Negative (Negative) POC Urine Blood 3+ (Negative) POC Urine Nitrite Positive (Negative) POC Urine Bilirubin Negative (Negative) POC Urine Urobilinogen 0.2 POC U Leukocyte Esteras 2+ (Negative) Critical Care Time Critical Care Time Critical Care Time: No Discharge Plan Discharge Clinical Impression: Urinary tract infection Patient Disposition: Home Condition: Stable Instructions: Antibiotic Form, Urinary Tract Infection in Men (ED) Additional Instructions: Take the antibiotic as prescribed The urine will be sent of for a culture to identify what type of bacteria is causing your infection. If the culture shows that the antibiotic will not get rid of your infection, you will be notified and a new antibiotic will be called in for you. Increase water intake you will need to follow up with your PCP, call to schedule an appointment. Go to the ER for any worsening symptoms or concerns Patient Language: [place] Prescriptions: New ciprofloxacin HCl 250 mg tablet 250 mg PO Q12H 10 Days Qty: 20 0RF No Action ferrous sulfate 325 mg (65 mg iron) tablet 325 mg PO DAILY tamsulosin 0.4 mg capsule 0.4 mg PO BID finasteride 5 mg tablet 5 mg PO DAILY Follow-up/Referrals: Say Barber MD [Primary Care Provider] - Time of Disposition: 18:34
== END 2025-02-13 18:39 | disposition home or self-care (01) ==
PROVIDERS: PCP Emergency Medicine
DX: N39.0 Urinary tract infection, site not specified (principal); B96.1 Klebsiella pneumoniae [K. pneumoniae] as the cause of diseases classified elsewhere; N40.1 Benign prostatic hyperplasia with lower urinary tract symptoms
CPT/HCPCS: 81003; 87086; 87186; 99213; G0463